=== PATIENT | male | born 1945 | race American Indian/Alaskan Native ===

== ENCOUNTER 2017-03-01 12:07 | Emergency (ER) | payer MEDICARE ==
[2017-03-01 13:30] LABS: Anion Gap 23 mmol/L; BUN/Creatinine Ratio 18.46; Basophils % (Auto) 1.3 % (0.0-1.8); Blood Urea Nitrogen 24 mg/dL (9-20); Calcium 9.8 mg/dL (8.4-10.2); Carbon Dioxide 20 mmol/L (22-30); Chloride 105.6 mmol/L (98-107); Glucose 84 mg/dL (75-100); Hemoglobin 13.3 gm/dl (11.8-15.2); Mean Corpuscular HGB Conc 33 % (32-34); Mean Corpuscular Hemoglobin 28 pg (28-32); Mean Corpuscular Volume 85 fl (84-94); Platelet Count 138 K/mm3 (140-440); Potassium 4.3 mmol/L (3.6-5.0); Red Blood Count 4.73 M/mm3 (3.65-5.03); Red Cell Distribution Width 14.7 % (13.2-15.2); Sodium 144 mmol/L (137-145); White Blood Count 4.3 K/mm3 (4.5-11.0)
[2017-03-01] MEDS ORDERED: GLUCAGEN IV ONE (18:10)
[2017-03-01] MEDS ORDERED: ZOFRAN IV ONE (18:23)
--- NOTE | 2017-03-01 18:33 | Emergency Department Report ---
ED General Adult HPI - General Chief complaint: Medical Clearance Stated complaint: UNABLE TO SWOLLOW/ Time Seen by Provider: 03/01/17 17:21 Source: patient Mode of arrival: Ambulatory Limitations: No Limitations - History of Present Illness Initial comments: 8-year-old male with past medical history BPH, hypertension his presenting to the ED complaining of difficulty in swallowing. Onset of symptoms started 1 day prior to ED arrival. Patient states inciting factor was that he had just taken his seizure medication and shortly after that he felt that everything he swallowed was stuck in his throat. Patient states since then he's not been able to tolerate liquids states he drinks liquids and then within 3 minutes it comes back up as emesis. Patient denies: hematemesis, chest pain, headache, fevers chills, diarrhea, abdominal pain. Patient states he has had similar complaints in the past however they've always resolved on their own within the hour. His symptoms have never lasted this long -: Gradual, days(s) (1) Radiation: non-radiation Severity scale (0 -10): 0 Consistency: intermittent Improves with: none Worsens with: none Associated Symptoms: loss of appetite, nausea/vomiting. denies: confusion, chest pain, cough, diaphoresis, headaches, malaise, rash, shortness of breath, syncope, weakness - Related Data Home Medications Medication Instructions Recorded Confirmed Last Taken Keppra TAB 1,500 mg PO BID 05/12/15 05/12/15 05/12/15 Previous Rx's Medication Instructions Recorded Last Taken Type Pantoprazole [Protonix] 40 mg PO QDAY #30 tablet 03/01/17 Unknown Rx Allergies Allergy/AdvReac Type Severity Reaction Status Date / Time No Known Allergies Allergy Verified 05/12/15 19:23 ED Review of Systems ROS: Stated complaint: UNABLE TO SWOLLOW/ Other details as noted in HPI Constitutional: denies: chills, fever Eyes: denies: eye pain, eye discharge, vision change ENT: denies: ear pain, throat pain Respiratory: denies: cough, shortness of breath, wheezing Cardiovascular: denies: chest pain, palpitations Endocrine: no symptoms reported Gastrointestinal: nausea, vomiting. denies: abdominal pain, diarrhea, constipation, hematemesis, melena, hematochezia Genitourinary: denies: urgency, dysuria Musculoskeletal: denies: back pain, joint swelling, arthralgia Skin: denies: rash, lesions Neurological: denies: headache, weakness, paresthesias Psychiatric: denies: anxiety, depression Hematological/Lymphatic: denies: easy bleeding, easy bruising ED Past Medical Hx - Past Medical History Previous Medical History?: Yes Hx Hypertension: Yes Hx Seizures: Yes - Surgical History Past Surgical History?: Yes Additional Surgical History: Cataract 08/2014 kristina eyes. right shoulder surgery - Social History Smoking Status: Never Smoker Substance Use Type: None - Medications Home Medications: Home Medications Medication Instructions Recorded Confirmed Last Taken Type Keppra TAB 1,500 mg PO BID 05/12/15 05/12/15 05/12/15 History Pantoprazole [Protonix] 40 mg PO QDAY #30 tablet 03/01/17 Unknown Rx ED Physical Exam - General Limitations: No Limitations General appearance: alert, in no apparent distress - Head Head exam: Present: atraumatic, normocephalic - Eye Eye exam: Present: normal appearance - ENT ENT exam: Present: mucous membranes moist - Neck Neck exam: Present: normal inspection - Respiratory Respiratory exam: Present: normal lung sounds bilaterally. Absent: respiratory distress - Cardiovascular Cardiovascular Exam: Present: regular rate, normal rhythm. Absent: systolic murmur, diastolic murmur, rubs, gallop - GI/Abdominal GI/Abdominal exam: Present: soft, normal bowel sounds - Rectal Rectal exam: Present: deferred - Extremities Exam Extremities exam: Present: normal inspection - Back Exam Back exam: Present: normal inspection - Neurological Exam Neurological exam: Present: alert, oriented X3, other (NIHSS: 0). Absent: motor sensory deficit - Psychiatric Psychiatric exam: Present: normal affect, normal mood - Skin Skin exam: Present: warm, dry, intact, normal color. Absent: rash ED Course Vital Signs 03/01/17 03/01/17 03/01/17 12:39 17:15 17:30 Temperature 98.8 F 98.6 F Pulse Rate 85 84 Respiratory 16 18 16 Rate Blood Pressure 155/77 Blood Pressure 150/74 [Left] O2 Sat by Pulse 99 98 100 Oximetry 03/01/17 03/01/17 19:42 21:27 Temperature 98.9 F Pulse Rate 91 H 91 H Respiratory 14 18 Rate Blood Pressure Blood Pressure 149/75 131/86 [Left] O2 Sat by Pulse 99 99 Oximetry - Reevaluation(s) Reevaluation #1: 03/01/17 18:26 Patient states he is able to tolerate his own saliva. Reevaluation #2: 03/01/17 20:08 pt states he tolerated po liquid in ED, he is requesting to dc home 03/01/17 20:08 ED Medical Decision Making - Lab Data Result diagrams: 03/01/17 12:55 03/01/17 12:55 - EKG Data EKG shows normal: sinus rhythm (86), axis (normal), intervals (440), QRS complexes (84) Rate: normal - EKG Data When compared to previous EKG there are: previous EKG unavailable Interpretation: normal EKG - Medical Decision Making 71 yo male with PMHX of BPH presenting to ED with resolved difficulty in swallowing, 1) dysphagia possibly secondary to retained pill in esophagus, I have low suspicion for CVA as his NIHSS:0 and symptoms started shortly after taking a medication. After glucagon given in the ED, the patient was well-appearing, tolerating by mouth liquids and solids, and no respiratory distress, The patient agrees he is stable to discharge home and follow up with GI for EGD. Patient verbalized understanding of return precautions. - Differential Diagnosis ACS, esophageal diverticulum, esophageal perforation, gastritits, GERD Critical care attestation.: If time is entered above; I have spent that time in minutes in the direct care of this critically ill patient, excluding procedure time. ED Disposition Clinical Impression: Esophagitis, Odynophagia Disposition: DC-01 TO HOME OR SELFCARE Is pt being admited?: No Does the pt Need Aspirin: No Condition: Stable Instructions: Foreign Body Ingestion (ED) Prescriptions: Pantoprazole [Protonix] 40 mg PO QDAY #30 tablet Referrals: JAMAL EARL MD [Primary Care Provider] - 2-3 Days GERSON LI MD [Staff Physician] - 2-3 Days Forms: Work/School Release Form(ED)
[2017-03-01 21:28] VITALS: BP 131/86
--- NOTE | 2017-03-02 08:23 | XRay Report ---
CHEST 2 VIEWS INDICATION: Difficulty swallowing. COMPARISON: 07/08/2011 FINDINGS: PA and lateral chest radiographs demonstrate normal cardiomediastinal silhouette. Mild biapical/upper lobe scarring/pleural thickening. Slight aortic knob calcifications. No pleural effusions or CHF. Demineralized bones with mild bony degenerative changes/mild scoliosis. CONCLUSION: No significant acute chest process or interval change, as described. Thank you for the opportunity to participate in this patient's care.
== END 2017-03-01 21:27 | disposition home or self-care (01) ==
LOC: ED 12:07
DX: K20.9 Esophagitis, unspecified (principal); R13.10 Dysphagia, unspecified; I10 Essential (primary) hypertension
CPT/HCPCS: 36415; 71020; 80048; 85025; 93005; 93010; 96374; 96375; 99284; J1610; J2405

== ENCOUNTER 2017-12-31 18:04 | Emergency (ER) | payer MEDICARE ==
[2017-12-31] MEDS ORDERED: KEPPRA 1,000 MG/NS 0.75% 100ML 1,000 MG/100 ML BAG IV ONE (18:26)
--- NOTE | 2017-12-31 18:47 | Emergency Department Report ---
HPI - General Time Seen by Provider: 12/31/17 18:22 - HPI HPI: Room 21 The patient is a 72-year-old male presenting with a chief complaint of altered mental status. Patient was brought in by EMS. EMS reports the patient's heard the patient fall and when she went into the room the patient was unresponsive. EMS was called and transported the patient to the ED. EMS states the patient does have a history of seizures with his last seizure occurring approximately 5 years ago. The patient opens his eyes and moans at times and sometimes raises his head off the bed but he does not speak Location: Mental state Duration: Just prior to arrival Quality: Altered Severity: Moderate Modifying factors: [see above] Context: [see above] Mode of transportation: [not driving] ED Past Medical Hx - Past Medical History Hx Hypertension: Yes Hx Seizures: Yes - Surgical History Additional Surgical History: Cataract 08/2014 kristina eyes. right shoulder surgery - Family History Family history: no significant - Social History Smoking Status: Unknown if ever smoked Substance Use Type: None - Medications Home Medications: Home Medications Medication Instructions Recorded Confirmed Last Taken Type Keppra TAB 1,500 mg PO BID 05/12/15 05/12/15 05/12/15 History Pantoprazole [Protonix] 40 mg PO QDAY #30 tablet 03/01/17 Unknown Rx ED Review of Systems ROS: Stated complaint: SEIZURE Other details as noted in HPI Comment: Unobtainable due to pts medical conditions Physical Exam - Physical Exam Physical Exam: GENERAL: The patient is well-developed well-nourished male lying on stretcher occasionally moaning and raising head off the stretcher but not speaking. [] HEENT: Normocephalic. Atraumatic. NECK: Supple. Trachea midline CHEST/LUNGS: Clear to auscultation. There is no respiratory distress noted. HEART/CARDIOVASCULAR: Regular. There is tachycardia. There is no gallop rub or murmur. ABDOMEN: Abdomen is soft, nontender. Patient has normal bowel sounds. There is no abdominal distention. SKIN: There is no rash. There is no edema. There is no diaphoresis. NEURO: The patient is conscious but does not respond to questions. Patient moans and occasionally races head off the stretcher but no other purposeful movements noticed MUSCULOSKELETAL: There is no evidence of acute injury. ED Course - Reevaluation(s) Reevaluation #1: 12/31/17 20:19 Patient awake and alert at this time without complaints. Patient's family is at bedside and is able to provide further history. The states she heard the patient make her grown (something he does prior to having seizures) and then she heard him fall. She went upstairs to check on him and he was not convulsing at the time. EMS was called and she went to unlock the door for them when she returns to the patient he was having a generalized tonic-clonic seizure. Patient is currently asymptomatic Neurological: Cranial nerves II through XII grossly intact, no drift. Patient a and O 3 ED Medical Decision Making - Lab Data Result diagrams: 12/31/17 18:58 12/31/17 18:58 Laboratory Tests 12/31/17 12/31/17 12/31/17 18:58 18:58 18:58 WBC 11.4 H RBC 4.44 Hgb 12.6 Hct 37.9 MCV 85 MCH 28 MCHC 33 RDW 14.3 Plt Count 170 Lymph % (Auto) 6.7 L Graham % (Auto) 6.5 Eos % (Auto) 0.8 Baso % (Auto) 0.3 Lymph # 0.8 L Graham # 0.7 Eos # 0.1 Baso # 0.0 Seg Neutrophils % 85.7 H Seg Neutrophils # 9.8 H PT 13.0 INR 0.94 APTT 25.7 Sodium 137 Potassium 3.7 Chloride 99.5 Carbon Dioxide 15 L Anion Gap 26 BUN 22 H Creatinine 1.2 Estimated GFR > 60 BUN/Creatinine Ratio 18 Glucose 108 H Calcium 10.1 Magnesium 2.40 H Total Bilirubin 0.30 AST 21 ALT 14 Alkaline Phosphatase 112 Ammonia Total Creatine Kinase 136 CK-MB (CK-2) 1.7 CK-MB (CK-2) Rel Index 1.2 Troponin T < 0.010 Total Protein 7.6 Albumin 3.9 Albumin/Globulin Ratio 1.1 TSH Free T4 Plasma/Serum Alcohol 12/31/17 12/31/17 12/31/17 18:58 18:58 18:58 WBC RBC Hgb Hct MCV MCH MCHC RDW Plt Count Lymph % (Auto) Graham % (Auto) Eos % (Auto) Baso % (Auto) Lymph # Graham # Eos # Baso # Seg Neutrophils % Seg Neutrophils # PT INR APTT Sodium Potassium Chloride Carbon Dioxide Anion Gap BUN Creatinine Estimated GFR BUN/Creatinine Ratio Glucose Calcium Magnesium Total Bilirubin AST ALT Alkaline Phosphatase Ammonia 30.0 Total Creatine Kinase CK-MB (CK-2) CK-MB (CK-2) Rel Index Troponin T Total Protein Albumin Albumin/Globulin Ratio TSH 6.290 H Free T4 1.11 Plasma/Serum Alcohol < 0.01 - EKG Data -: EKG Interpreted by Oh EKG shows normal: sinus rhythm Rate: tachycardia (101 bpm) - EKG Data When compared to previous EKG there are: previous EKG unavailable Interpretation: other (no ischemic changes seen) - Radiology Data Radiology results: report reviewed (CT head), image reviewed (CT head) CT head (read by radiologist)-No focal or acute intracranial abnormalities are identified. - Differential Diagnosis postictal state, ICH, metabolic abnormality Critical care attestation.: If time is entered above; I have spent that time in minutes in the direct care of this critically ill patient, excluding procedure time. ED Disposition Clinical Impression: Seizure Disposition: DC-01 TO HOME OR SELFCARE Is pt being admited?: No Does the pt Need Aspirin: No Condition: Stable Instructions: Epilepsy (ED) Additional Instructions: Return to the emergency department immediately should you develop worsening symptoms, fever, inability to tolerate food or liquid or any other concerns. Referrals: your, neurologist [Other] - [facility] Time of Disposition: 20:22
--- NOTE | 2017-12-31 19:10 | Cat Scan Report ---
FINAL REPORT PROCEDURE: CT HEAD/BRAIN WO CON TECHNIQUE: Computerized tomography of the head was performed without contrast material. HISTORY: altered mental status COMPARISON: No prior studies are available for comparison. FINDINGS: Brain: Brain density appears normal. No evidence of intracranial hemorrhage. No parenchymal hemorrhage, mass lesions or mass effect are seen. No abnormal extraxial fluid collects or masses are seen. Small nonspecific calcifications visualized in the basal ganglia which are otherwise unremarkable. Ventricles: Ventricles are normal size and are midline. Bone Windows: No evidence of skull fracture. Paranasal sinuses: There is patchy mucosal disease in a few of the ethmoid air cells on the right. Visualized portions of the paranasal sinuses otherwise are clear. Mastoid air cells: Clear IMPRESSION: No acute or focal intracranial abnormalities are identified. Mild paranasal sinus disease as described.
[2017-12-31 19:19] LABS: Basophils % (Auto) 0.3 % (0.0-1.8); Eosinophils # (Auto) 0.1 K/mm3 (0.0-0.4); Eosinophils % (Auto) 0.8 % (0.0-4.3); Hematocrit 37.9 % (35.5-45.6); Hemoglobin 12.6 gm/dl (11.8-15.2); Lymphocytes # (Auto) 0.8 K/mm3 (1.2-5.4); Lymphocytes % (Auto) 6.7 % (13.4-35.0); Mean Corpuscular HGB Conc 33 % (32-34); Mean Corpuscular Hemoglobin 28 pg (28-32); Mean Corpuscular Volume 85 fl (84-94); Monocytes # (Auto) 0.7 K/mm3 (0.0-0.8); Monocytes % (Auto) 6.5 % (0.0-7.3); Platelet Count 170 K/mm3 (140-440); Red Blood Count 4.44 M/mm3 (3.65-5.03); Red Cell Distribution Width 14.3 % (13.2-15.2)
[2017-12-31 19:30] LABS: INR 0.94 (0.87-1.13)
[2017-12-31 19:31] LABS: Partial Thromboplastin Time 25.7 Sec. (24.2-36.6)
[2017-12-31 19:37] LABS: Creatine Kinase MB 1.7 ng/mL (0.0-4.0)
[2017-12-31 19:38] LABS: Alanine Aminotransferase 14 units/L (7-56); Albumin 3.9 g/dL (3.9-5); BUN/Creatinine Ratio 18; Blood Urea Nitrogen 22 mg/dL (9-20); Calcium 10.1 mg/dL (8.4-10.2); Hemolysis Index 13
[2017-12-31 20:07] LABS: Free T4 (Free Thyroxine) 1.11 ng/dL (0.76-1.46)
[2017-12-31 20:57] VITALS: BP 143/81
== END 2017-12-31 20:58 | disposition home or self-care (01) ==
LOC: ED 18:04
DX: R56.9 Unspecified convulsions (principal); I10 Essential (primary) hypertension
CPT/HCPCS: 36415; 70450; 80053; 82140; 82550; 82553; 83735; 84439; 84443; 84484; 85025; 85610; 85730; 93005; 93010; 96374; 99284; G0480; J1953; 80320

== ENCOUNTER 2019-07-07 11:31 | Inpatient (IN) | payer MEDICARE ==
[2019-07-07] MEDS ORDERED: ADENOSINE 6 MG/2 ML INJ ONE (11:52)
[2019-07-07] MEDS ORDERED: ADENOSINE 6 MG/2 ML INJ IV ONE ×2 (12:00→12:05)
[2019-07-07 12:46] LABS: Basophils % (Auto) 0.7 % (0.0-1.8); Eosinophils % (Auto) 0.6 % (0.0-4.3); Hematocrit 35.9 % (35.5-45.6); Lymphocytes # (Auto) 0.8 K/mm3 (1.2-5.4); Lymphocytes % (Auto) 20.1 % (13.4-35.0); Mean Corpuscular HGB Conc 34 % (32-34); Mean Corpuscular Volume 86 fl (84-94); Monocytes # (Auto) 0.4 K/mm3 (0.0-0.8); Monocytes % (Auto) 9.6 % (0.0-7.3); Platelet Count 133 K/mm3 (140-440); Red Cell Distribution Width 13.7 % (13.2-15.2)
--- NOTE | 2019-07-07 12:56 | Emergency Department Report ---
HPI - General Chief Complaint: Chest Pain Time Seen by Provider: 07/07/19 11:44 - HPI HPI: 74-year-old -Citizen Of [place] male presents to the emergency department, sent in by Dr. Merida of [facility], secondary to some tachycardia and abnormal EKG showing junctional tachycardia with retrograde conduction. The patient is on theophylline secondary to a history of asthma. He also has a history of hyperlipidemia and hypertension. He's been having some palpitations since last , about 5 days ago. He denies any chest pain or resting shortness of breath but the palpitations worsen with any exertion and he says it feels like he has a fast heart rate. The patient went to follow-up with his house officer today, Dr. Gaston, and was found to have a heart rate of about 130 bpm. He was then sent over to the pcat instructor who then sent him to the emergency department. Cardiology called and gave a heads up and requested the patient receive adenosine to try and convert him back to a normal sinus rhythm. ED Past Medical Hx - Past Medical History Hx Hypertension: Yes Hx Seizures: Yes - Surgical History Additional Surgical History: Cataract 08/2014 kristina eyes. right shoulder surgery - Social History Smoking Status: Never Smoker Substance Use Type: None - Medications Home Medications: Home Medications Medication Instructions Recorded Confirmed Last Taken Type Keppra TAB 750 mg PO BID 05/12/15 07/07/19 05/12/15 History Pantoprazole [Protonix] 40 mg PO QDAY #30 tablet 03/01/17 Unknown Rx Amlodipine Besylate [Norvasc] 5 mg PO 07/07/19 Unknown History Doxazosin Mesylate [Cardura Xl] 4 mg PO BID 07/07/19 07/07/19 Unknown History Ketorolac Tromethamin 0.4%(Nf) 07/07/19 Unknown History [Acular Ls 0.4% Ophth Gina] Lisinopril [Zestril TAB] 40 mg PO QDAY 07/07/19 07/07/19 Unknown History Metoprolol Succinate [Toprol Xl] 25 mg PO QDAY 07/07/19 07/07/19 Unknown History Theophylline Anhydrous 300 mg PO QDAY 07/07/19 07/07/19 Unknown History [Theophylline] ED Review of Systems ROS: Stated complaint: DOC ORDERED Other details as noted in HPI Comment: All other systems reviewed and negative Constitutional: denies: chills, fever Respiratory: SOB with exertion. denies: cough, SOB at rest Cardiovascular: palpitations. denies: chest pain Gastrointestinal: denies: abdominal pain, vomiting Genitourinary: denies: dysuria, discharge Musculoskeletal: denies: back pain, arthralgia Skin: denies: rash, lesions Neurological: denies: headache, weakness Physical Exam - Physical Exam Vital Signs: Vital Signs 07/07/19 07/07/19 07/07/19 11:40 11:45 12:00 Temperature 98.5 F Pulse Rate 109 H 122 H Respiratory 16 15 16 Rate Blood Pressure 120/80 Blood Pressure 135/84 [Left] O2 Sat by Pulse 100 100 Oximetry 07/07/19 07/07/19 12:05 12:12 Temperature Pulse Rate 126 H 107 H Respiratory 16 16 Rate Blood Pressure Blood Pressure 139/75 115/74 [Left] O2 Sat by Pulse 98 98 Oximetry Physical Exam: GENERAL: The patient is well-developed well-nourished. HENT: Normocephalic. Atraumatic. Patient has moist mucous membranes. EYES: Extraocular motions are intact. NECK: Supple. Trachea is midline. CHEST/LUNGS: Clear to auscultation. There is no respiratory distress noted. HEART/CARDIOVASCULAR: Regular. There is mild tachycardia. There is no murmur. ABDOMEN: Abdomen is soft, nontender. Patient has normal bowel sounds. There is no abdominal distention. SKIN: Skin is warm and dry. NEURO: The patient is awake, alert, and oriented. The patient is cooperative. The patient has no focal neurologic deficits. Normal speech. MUSCULOSKELETAL: There is no tenderness or deformity. There is no limitation range of motion. There is no evidence of acute injury. ED Course Vital Signs 07/07/19 07/07/19 07/07/19 11:40 11:45 12:00 Temperature 98.5 F Pulse Rate 109 H 122 H Respiratory 16 15 16 Rate Blood Pressure 120/80 Blood Pressure 135/84 [Left] O2 Sat by Pulse 100 100 Oximetry 07/07/19 07/07/19 12:05 12:12 Temperature Pulse Rate 126 H 107 H Respiratory 16 16 Rate Blood Pressure Blood Pressure 139/75 115/74 [Left] O2 Sat by Pulse 98 98 Oximetry - Consultations Consultation #1: Patient was seen in the emergency department by Dr. Bassett of [facility]. He agrees that the patient appears to still be in junctional t achycardia that may be related to his theophylline use and the patient should be admitted to the hospitalist service. 07/07/19 14:43 ED Medical Decision Making - Lab Data Result diagrams: 07/07/19 12:08 07/07/19 12:08 - EKG Data -: EKG Interpreted by Me EKG shows normal: axis, intervals, QRS complexes, ST-T waves Rate: tachycardia (106 bpm) - EKG Data When compared to previous EKG there are: no significant change (no significant change from the EKG sent in with the patient) Interpretation: other (junctional tachycardia at [address] elevation OK) - Radiology Data Radiology results: image reviewed interpreted by me: Chest x-ray does not show any acute process. There are no pleural effusions, obvious pneumonia and there is no pneumothorax. - Medical Decision Making This patient was sent in by his pcat instructor for medical cardioversion from a junctional tachycardia with some retrograde conduction that is thought to be secondary to his theophylline use. The patient remained injection tachycardia upon arrival. He was given 6 mg, then 12 mg, of adenosine without cardioversion into sinus rhythm. Patient's labs have been mostly unremarkable. Chest x-ray does not show any acute process. Patient was placed on a Cardizem drip, per car diology recommendation, but it has currently been held secondary to some underlying hypotension. The patient will be admitted to the hospital for further evaluation and treatment and was accepted for admission by the hospitalist, Dr. Sands. - Differential Diagnosis dysrhythmia, electrolyte abnormalities, OK Critical Care Time: Yes Critical care time in (mins) excluding proc time.: 31 Critical care attestation.: If time is entered above; I have spent that time in minutes in the direct care of this critically ill patient, excluding procedure time. Critical care time was spent on this patient and doing his initial evaluation, multiple re- evaluations, ordering and interpretation of labs and imaging, administration of the adenosine for chemical cardioversion, multiple discussions with cardiology. Critical Care Time: 31 minutes ED Disposition Clinical Impression: Palpitations, Junctional tachycardia, Dysrhythmia Disposition: OP ADMIT IP TO THIS HOSP Is pt being admited?: Yes Condition: Fair Time of Disposition: 14:46
[2019-07-07] MEDS ORDERED: dilTIAZem/D5W 100 MG/100 ML BAG IV SCH (13:00)
[2019-07-07 13:10] LABS: BUN/Creatinine Ratio 12; Blood Urea Nitrogen 18 mg/dL (9-20); Calcium 9.6 mg/dL (8.4-10.2); Hemolysis Index 6
--- NOTE | 2019-07-07 13:30 | XRay Report ---
CHEST 1 VIEW 07/07/2019 1:11 PM INDICATION / CLINICAL INFORMATION: Palpitations. COMPARISON: 2 views of the chest from 03/01/2017. FINDINGS: SUPPORT DEVICES: None. HEART / MEDIASTINUM: The heart is normal in size with similar mild aortic atherosclerosis. LUNGS / PLEURA: Chronic appearing parenchymal changes are noted with biapical scarring. No acute pulm onary abnormality, significant pleural effusion or pneumothorax is seen. ADDITIONAL FINDINGS: No significant additional findings. IMPRESSION: No acute abnormality of the chest. Signer Name: Jhon Tyler MD Signed: 07/07/2019 1:26 PM Workstation Name: [id number]
[2019-07-07] MEDS ORDERED: SODIUM CHLORIDE 0.9% 1000 ML 1,000 ML ONE (14:02)
[2019-07-07] MEDS ORDERED: SODIUM CHLORIDE 0.9% 1000 ML 1,000 ML IV ONE (14:04)
--- NOTE | 2019-07-07 14:06 | History and Physical Report ---
History of Present Illness Chief complaint: My heart is beating out of my chest History of present illness: 74 YO Male with HTN, HLD, Asthma, Seizure Disorder presents to ED for evaluation. Pt states that he has experienced intermittent episodes of "feeling like my heart is pounding inside my chest" over the past 5 days with worsening symptoms over the past 2 days. Pt acknowledges dypsnea with exertion, shortness of breath, and decreased exercise tolerance. Pt seen and evaluated by his covered button maker and was instructed to seek further care. Pt transported to [facility] via private vehicle. Pt seen and evaluated in ED and found to have cardiac arrhythmia suspected secondary to Theophylline toxicity. Pt treated with shana nosine and placed on a cardizem drip. Pt admitted to ICU and placed on continuous telemetry monitoring. Cardiology team consulted. Pt denies fever, chills, CP, NVD, Trauma, BRBPR, Productive Cough, Skin Rash, Seizure, recent ill contacts. Advanced care planning conducted in ED. Past History Past Medical History: other Past Surgical History: cataract removal, Other (Right shoulder) Social history: , lives with family Family history: hypertension Medications and Allergies Allergies Allergy/AdvReac Type Severity Reaction Status Date / Time No Known Allergies Allergy Verified 05/12/15 19:23 Home Medications Medication Instructions Recorded Confirmed Last Taken Type Keppra TAB 750 mg PO BID 05/12/15 07/07/19 05/12/15 History Pantoprazole [Protonix] 40 mg PO QDAY #30 tablet 03/01/17 Unknown Rx Amlodipine Besylate [Norvasc] 5 mg PO 07/07/19 Unknown History Doxazosin Mesylate [Cardura Xl] 4 mg PO BID 07/07/19 07/07/19 Unknown History Ketorolac Tromethamin 0.4%(Nf) 07/07/19 Unknown History [Acular Ls 0.4% Ophth Gina] Lisinopril [Zestril TAB] 40 mg PO QDAY 07/07/19 07/07/19 Unknown History Metoprolol Succinate [Toprol Xl] 25 mg PO QDAY 07/07/19 07/07/19 Unknown History Theophylline Anhydrous 300 mg PO QDAY 07/07/19 07/07/19 Unknown History [Theophylline] Active Meds: Active Medications Diltiazem HCl (Cardizem/D5w 100mg/100ml) 100 mg in 100 mls @ 5 mls/hr IV TITR JULES; Protocol Review of Systems Constitutional: no weight loss, no weight gain, no fever, no chills Ears, nose, mouth and throat: no ear pain, no ear discharge, no tinnitis, no decreased hearing, no nasal congestion, no nasal discharge Cardiovascular: palpitations, no chest pain, no orthopnea, no edema, no syncope Respiratory: no cough, no cough with sputum, no excessive sputum, no shortness of breath Gastrointestinal: no nausea, no vomiting, no diarrhea, no constipation, no change in bowel habits Genitourinary Male: no hematuria, no flank pain, no discharge, no urinary frequency, no urinary hesitancy Rectal: no pain, no incontinence, no bleeding Musculoskeletal: no neck stiffness, no neck pain, no shooting arm pain, no arm numbness/tingling, no low back pain Integumentary: no rash, no pruritis, no redness, no sores, no wounds Neurological: no head injury, no transient paralysis, no paralysis, no weakness, no parathesias, no numbness Psychiatric: no anxiety, no memory loss, no sleep disturbances, no insomnia, no change in appetite, no suicidal ideation Endocrine: no cold intolerance, no heat intolerance, no polyphagia, no polyuria, no nocturia Hematologic/Lymphatic: no easy bruising, no easy bleeding, no lymphadenopathy, no lymphedema Allergic/Immunologic: no urticaria, no persistent infections, no anaphylaxis, no angioedema Exam - Constitutional Vitals: Temp Pulse Resp BP Pulse Ox 98.5 F 109 H 16 103/72 100 07/07/19 11:45 07/07/19 14:00 07/07/19 14:00 07/07/19 14:00 07/07/19 14:00 General appearance: Present: mild distress - EENT Eyes: Present: PERRL ENT: hearing intact, clear oral mucosa - Neck Neck: Present: supple, normal ROM - Respiratory Respiratory effort: normal Respiratory: bilateral: CTA - Cardiovascular Rhythm: irregularly irregular Heart Sounds: Present: S1 & S2. Absent: rub, click - Extremities Extremities: pulses symmetrical, No edema Peripheral Pulses: within normal limits - Abdominal General gastrointestinal: Present: soft, non-tender, non-distended, normal bowel sounds Male genitourinary: Present: normal - Integumentary Integumentary: Present: clear, warm, dry - Psychiatric Psychiatric: appropriate mood/affect, intact judgment & insight - Neurologic Neurologic: CNII-XII intact, moves all extremities Results - Labs CBC & Chem 7: 07/07/19 12:08 07/07/19 12:08 Labs: Abnormal lab results 07/07/19 07/07/19 Range/Units 12:08 12:08 WBC 3.9 L (4.5-11.0) K/mm3 Plt Count 133 L (140-440) K/mm3 [place] % (Auto) 9.6 H (0.0-7.3) % Lymph # 0.8 L (1.2-5.4) K/mm3 Carbon Dioxide 20 L (22-30) mmol/L Glucose 107 H (75-100) mg/dL Assessment and Plan - Patient Problems (1) Theophylline toxicity Current Visit: Yes Status: Suspected Plan to address problem: Theophylline level, hold theophylline for now, supportive care. The high probability of a clinically significant, sudden or life threatening deterioration of the [cardiac, renal] system(s) required my full and direct attention, intervention and personal management. The aggregate critical care time was [65] minutes. This time is in addition to time spent performing reported procedures but includes the following: [x] Data Review and interpretation [x] Patient assessment and monitoring of vital signs [x] Documentation [x] Medication orders and management (2) Junctional tachycardia Current Visit: Yes Status: Acute Plan to address problem: Supportive care. Cardiology consulted, IV cardizem, supportive care. (3) HTN (hypertension) Current Visit: Yes Status: Chronic Qualifiers: Hypertension type: essential hypertension Qualified Code(s): I10 - Essential (primary) hypertension Plan to address problem: Monitor BP q shift, (4) Advance care planning Current Visit: Yes Status: Acute Plan to address problem: +30min, Pt is full code, Pt and acknowledge understanding care plan. (5) DVT prophylaxis Current Visit: Yes Status: Acute Plan to address problem: SCD to BLE while in bed, PT ambulatory
--- NOTE | 2019-07-07 14:49 | Consultation ---
History of Present Illness Consult date: 07/07/19 Requesting physician: BENJAMÍN HERRING Consult reason: known to you, tachycardia History of present illness: The pt is a 74-year-old male with a past medical history of HTN, HLP, CKD, asthma, on theophylline. He is followed in our office by Dr. Merida. He was seen in our office earlier today with c/o intermittent palpitations for the past 5 days. He was seen by nephrology, Dr. Aguero, and sent to our office for heart rate in the 130s. EKG in office showed atrial tachycardia 115 with possible retrograde conduction. In view of his asthma being on theophylline he was sent to ED for further eval/management. Following arrival to ED, EKG showed junctional tachycardia with retrograde conduction. He was given 6 mg, then 12 mg, of adenosine without cardioversion into sinus rhythm. He remains in junctional tachycardia with HR 110s. He denies any chest pain, SOB, n/v, diaphoresis, dizziness or syncope. Echo done 08/2018 showed EF 50-55%, asymmetric LVH, grade 2 diastolic dysfunction, mild MR and TR. Exercise MPI stress test done 08/2018 was clinically negative with no chest pain, normal EF 67%, mild inferior abnormalities of questionable significance, treadmill test abnormal with inferolateral ST-T changes. Thought to be probably false positive as perfusion images looked good per Dr. Nieves. Past History Past Medical History: sarcoidosis (per HPI), other Medications and Allergies Allergies Allergy/AdvReac Type Severity Reaction Status Date / Time No Known Allergies Allergy Verified 05/12/15 19:23 Home Medications Medication Instructions Recorded Confirmed Last Taken Type Keppra TAB 750 mg PO BID 05/12/15 07/07/19 05/12/15 History Pantoprazole [Protonix] 40 mg PO QDAY #30 tablet 03/01/17 Unknown Rx Amlodipine Besylate [Norvasc] 5 mg PO 07/07/19 Unknown History Doxazosin Mesylate [Cardura Xl] 4 mg PO BID 07/07/19 07/07/19 Unknown History Ketorolac Tromethamin 0.4%(Nf) 07/07/19 Unknown History [Acular Ls 0.4% Ophth Gina] Lisinopril [Zestril TAB] 40 mg PO QDAY 07/07/19 07/07/19 Unknown History Metoprolol Succinate [Toprol Xl] 25 mg PO QDAY 07/07/19 07/07/19 Unknown History Theophylline Anhydrous 300 mg PO QDAY 07/07/19 07/07/19 Unknown History [Theophylline] Active Meds: Active Medications Doxazosin Mesylate (Cardura) 4 mg PO BID [facility] Diltiazem HCl (Cardizem/D5w 100mg/100ml) 100 mg in 100 mls @ 5 mls/hr IV TITR JULES; Protocol Levetiracetam (Keppra) 750 mg PO BID JULES Pantoprazole Sodium (Protonix) 40 mg PO QDAY JULES Sodium Chloride (Sodium Chloride Flush Syringe 10 Ml) 10 ml IV BID JULES Sodium Chloride (Sodium Chloride Flush Syringe 10 Ml) 10 ml IV PRN PRN PRN Reason: LINE FLUSH Review of Systems Constitutional: no weight loss, no weight gain, no fever, no chills, no sweats Ears, nose, mouth and throat: no ear pain, no nose pain, no sinus pressure, no sinus pain Cardiovascular: palpitations, no chest pain, no orthopnea, no edema, no syncope, no lightheadedness, no shortness of breath, no dyspnea on exertion, no high blood pressure, no leg edema, no decreased exercise tolerance Respiratory: no cough, no shortness of breath, no dyspnea on exertion, no congestion, no wheezing, no pain on inspiration Gastrointestinal: no abdominal pain, no nausea, no vomiting, no diarrhea, no constipation, no change in bowel habits Genitourinary Male: no dysuria, no hematuria, no flank pain, no discharge, no urinary frequency, no urinary hesitancy Musculoskeletal: no neck stiffness, no neck pain, no shooting arm pain, no arm numbness/tingling, no low back pain, no shooting leg pain Integumentary: no rash, no pruritis, no redness, no sores, no wounds Neurological: no head injury, no paralysis, no weakness, no parathesias, no numbness, no tingling, no seizures, no syncope Psychiatric: no anxiety Endocrine: no cold intolerance, no heat intolerance Hematologic/Lymphatic: no easy bruising, no easy bleeding Allergic/Immunologic: no urticaria, no wheezing Physical Examination Vital Signs Resp 16 07/07/19 11:40 General appearance: no acute distress HEENT: Positive: PERRL, Normocephaly, Mucus Membranes Moist Neck: Positive: neck supple, trachea midline Cardiac: Positive: Regular Rhythm, S1/S2 Lungs: Positive: Decreased Breath Sounds Neuro: Positive: Grossly Intact Abdomen: Negative: Tender Skin: Negative: Rash Musculoskeletal: No Pain Extremities: Absent: edema Results 07/07/19 12:08 07/07/19 12:08 CBC 07/07/19 Range/Units 12:08 WBC 3.9 L (4.5-11.0) K/mm3 RBC 4.20 (3.65-5.03) M/mm3 Hgb 12.0 (11.8-15.2) gm/dl Hct 35.9 (35.5-45.6) % Plt Count 133 L (140-440) K/mm3 Lymph # 0.8 L (1.2-5.4) K/mm3 [place] # 0.4 (0.0-0.8) K/mm3 Eos # 0.0 (0.0-0.4) K/mm3 Baso # 0.0 (0.0-0.1) K/mm3 Comprehensive Metabolic Panel 07/07/19 Range/Units 12:08 Sodium 142 (137-145) mmol/L Potassium 4.8 (3.6-5.0) mmol/L Chloride 105.4 (98-107) mmol/L Carbon Dioxide 20 L (22-30) mmol/L BUN 18 (9-20) mg/dL Creatinine 1.5 (0.8-1.5) mg/dL Glucose 107 H (75-100) mg/dL Calcium 9.6 (8.4-10.2) mg/dL - Imaging and Cardiology Echo: report reviewed (08/2018 showed EF 50-55%, asymmetric LVH, grade 2 diastolic dysfunction, mild MR and TR. ) EKG: report reviewed, image reviewed EKG interpretations - Telemetry EKG Rhythm: Junctional (tachycardia) - EKG Supraventricular dysrhythmia: junctional rhythm (tachycardia) Assessment and Plan Arrhythmia initially suspected to be secondary to Theophylline toxicity, however, theophylline level resulted as 8.9. Recommend continuing to hold Theophylline at this time. Optimize HR - initiate cardizem gtt. F/u echo. Further recs to follow per hospital course. The patient has been seen in conjunction with Dr. Carmelita Bassett who agrees with the assessment and plan of care. - Patient Problems (1) Junctional tachycardia Current Visit: Yes Status: Acute (2) Palpitations Current Visit: Yes Status: Acute (3) HTN (hypertension) Current Visit: Yes Status: Chronic (4) Hyperlipidemia Current Visit: Yes Status: Chronic (5) Asthma Current Visit: Yes Status: Chronic
[2019-07-07] MEDS ORDERED: PANTOPRAZOLE 40 MG TAB PO ONE (15:10)
[2019-07-07] MEDS ORDERED: levETIRAcetam 500 MG TAB PO ONE (15:12)
[2019-07-07] MEDS: DOXAZOSIN 4 MG TAB PO SCH ×2 (15:13→21:03)
[2019-07-07] MEDS: PANTOPRAZOLE 40 MG TAB PO SCH (15:13)
[2019-07-07] MEDS: levETIRAcetam 500 MG TAB PO SCH ×2 (15:13→21:02)
[2019-07-08 05:37] LABS: Basophils % (Auto) 1.2 % (0.0-1.8); Eosinophils # (Auto) 0.1 K/mm3 (0.0-0.4); Eosinophils % (Auto) 3.7 % (0.0-4.3); Hematocrit 34.9 % (35.5-45.6); Hemoglobin 11.7 gm/dl (11.8-15.2); Lymphocytes % (Auto) 25.9 % (13.4-35.0); Mean Corpuscular HGB Conc 34 % (32-34); Mean Corpuscular Volume 85 fl (84-94); Monocytes # (Auto) 0.4 K/mm3 (0.0-0.8); Monocytes % (Auto) 11.5 % (0.0-7.3); Platelet Count 132 K/mm3 (140-440); Red Blood Count 4.12 M/mm3 (3.65-5.03); Red Cell Distribution Width 13.9 % (13.2-15.2)
[2019-07-08 05:51] LABS: Alanine Aminotransferase 8 units/L (7-56); Albumin 3.4 g/dL (3.9-5); BUN/Creatinine Ratio 13; Blood Urea Nitrogen 16 mg/dL (9-20); Calcium 8.7 mg/dL (8.4-10.2); Hemolysis Index 6
[2019-07-08] MEDS: DOXAZOSIN 4 MG TAB PO SCH ×2 (10:00→22:01)
[2019-07-08] MEDS: PANTOPRAZOLE 40 MG TAB PO SCH (10:00)
[2019-07-08] MEDS: levETIRAcetam 500 MG TAB PO SCH ×2 (10:00→22:01)
--- NOTE | 2019-07-08 12:03 | Consultation ---
History of Present Illness - Reason for Consult Consult date: 07/08/19 Tachycardia. - History of Present Illness The pt is a 74-year-old male with a past medical history of HTN, HLP, CKD, asthma, on theophylline. He is followed in our office by Dr. Merida. He was seen in our office earlier today with c/o intermittent palpitations for the past 5 days. He was seen by nephrology, Dr. Aguero, and sent to our office for heart rate in the 130s. EKG in office showed atrial tachycardia 115 with possible retrograde conduction. In view of his asthma being on theophylline he was sent to ED for further eval/management. Following arrival to ED, EKG showed junctional tachycardia with retrograde conduction. He was given 6 mg, then 12 mg, of adenosine without cardioversion into sinus rhythm. He remains in junctional tachycardia with HR 110s. He denies any chest pain, SOB, n/v, diaphoresis, dizziness or syncope. Past History Past Medical History: hypertension, hyperlipidemia, other (asthma and chronic kidney disease) Past Surgical History: cataract removal, Other (Right shoulder) Social history: , lives with family Family history: hypertension Medications and Allergies Allergies Allergy/AdvReac Type Severity Reaction Status Date / Time No Known Allergies Allergy Verified 05/12/15 19:23 Home Medications Medication Instructions Recorded Confirmed Last Taken Type Keppra TAB 750 mg PO BID 05/12/15 07/07/19 05/12/15 History Pantoprazole [Protonix] 40 mg PO QDAY #30 tablet 03/01/17 Unknown Rx Amlodipine Besylate [Norvasc] 5 mg PO 07/07/19 Unknown History Doxazosin Mesylate [Cardura Xl] 4 mg PO BID 07/07/19 07/07/19 Unknown History Ketorolac Tromethamin 0.4%(Nf) 07/07/19 Unknown History [Acular Ls 0.4% Ophth Gina] Lisinopril [Zestril TAB] 40 mg PO QDAY 07/07/19 07/07/19 Unknown History Metoprolol Succinate [Toprol Xl] 25 mg PO QDAY 07/07/19 07/07/19 Unknown History Theophylline Anhydrous 300 mg PO QDAY 07/07/19 07/07/19 Unknown History [Theophylline] Active Meds: Active Medications Doxazosin Mesylate (Cardura) 4 mg PO BID [facility] Last Admin: 07/08/19 10:00 Dose: 4 mg Documented by: Diltiazem HCl (Cardizem/D5w 100mg/100ml) 100 mg in 100 mls @ 5 mls/hr IV TITR [facility]; Protocol Levetiracetam (Keppra) 750 mg PO BID [facility] Last Admin: 07/07/19 21:02 Dose: 750 mg Documented by: Pantoprazole Sodium (Protonix) 40 mg PO QDAY [facility] Last Admin: 07/08/19 10:00 Dose: 40 mg Documented by: Sodium Chloride (Sodium Chloride Flush Syringe 10 Ml) 10 ml IV BID [facility] Last Admin: 07/08/19 10:00 Dose: 10 ml Documented by: Sodium Chloride (Sodium Chloride Flush Syringe 10 Ml) 10 ml IV PRN PRN PRN Reason: LINE FLUSH Review of Systems All systems: negative Exam - Constitutional Vitals: Temp Pulse Resp BP Pulse Ox 98.1 F 101 H 16 120/69 97 07/08/19 08:00 07/08/19 10:00 07/08/19 06:30 07/08/19 10:00 07/08/19 06:30 Results - Labs CBC & Chem 7: 07/08/19 05:11 07/08/19 05:11 Labs: Abnormal lab results 07/07/19 07/07/19 07/07/19 Range/Units 12:08 12:08 13:33 WBC 3.9 L (4.5-11.0) K/mm3 Hgb (11.8-15.2) gm/dl Hct (35.5-45.6) % Plt Count 133 L (140-440) K/mm3 [place] % (Auto) 9.6 H (0.0-7.3) % Lymph # 0.8 L (1.2-5.4) K/mm3 Chloride (98-107) mmol/L Carbon Dioxide 20 L (22-30) mmol/L Glucose 107 H (75-100) mg/dL Albumin (3.9-5) g/dL Theophylline 8.9 L (10.0-20.0) ug/mL 07/08/19 07/08/19 Range/Units 05:11 05:11 WBC 3.7 L (4.5-11.0) K/mm3 Hgb 11.7 L (11.8-15.2) gm/dl Hct 34.9 L (35.5-45.6) % Plt Count 132 L (140-440) K/mm3 [place] % (Auto) 11.5 H (0.0-7.3) % Lymph # 1.0 L (1.2-5.4) K/mm3 Chloride 110.5 H (98-107) mmol/L Carbon Dioxide (22-30) mmol/L Glucose (75-100) mg/dL Albumin 3.4 L (3.9-5) g/dL Theophylline (10.0-20.0) ug/mL - Imaging and Cardiology Chest x-ray: image reviewed (chronic interstitial changes) Assessment and Plan 74 y/o with irregular heart rhythm. 1. Patient follows with Mati. Will review office records to see how long patient has been on Theophylline 2. Levels of Praveen were low. Ok with Holding for now. However must be mindful of acute bronchospasm from stopping Theophylline abruptly. Usually this medication is weaned 3. Follow up cardiology recs. Stable for transfer out of ICU.
--- NOTE | 2019-07-08 13:07 | Progress Note ---
Assessment and Plan Echo reviewed - EF 50-55%, abnormal diastolic function, mild MR. Arrhythmia was initially suspected to be secondary to Theophylline toxicity, however, theophylline level resulted as 8.9. Recommend continuing to hold Theophylline as this medication within therapeutic range may still contribute to tachyarrhythmias. Per pulmonary, ok with holding for now and monitor for acute bronchospasm from stopping Theophylline abruptly. Initiate PO cardizem. Pt may tx out of CCU to telemetry from cardiology standpoint. Encourage increased activity and ambulation today as pt has not yet been OOB. The patient has been seen in conjunction with Dr. Carmelita Bassett who agrees with the assessment and plan of care. - Patient Problems (1) Junctional tachycardia Current Visit: Yes Status: Acute (2) Palpitations Current Visit: Yes Status: Acute (3) HTN (hypertension) Current Visit: Yes Status: Chronic Qualifiers: Hypertension type: essential hypertension Qualified Code(s): I10 - Essential (primary) hypertension (4) Hyperlipidemia Current Visit: Yes Status: Chronic (5) Asthma Current Visit: Yes Status: Chronic Subjective Date of service: 07/08/19 Principal diagnosis: junctional tachycardia Interval history: pt resting in bed, states he is feeling better today. He was in SR with 1st deg AV block HR 80s this AM and then converted back to junctional tachycardia with HR 100s. Objective Last Vital Signs Temp 98.2 F 07/08/19 12:00 Pulse 101 H 07/08/19 10:00 Resp 16 07/08/19 06:30 BP 120/69 07/08/19 10:00 Pulse Ox 97 07/08/19 06:30 - Physical Examination General: No Apparent Distress HEENT: Positive: PERRL, Normocephaly, Mucus Membranes Moist Neck: Positive: neck supple, trachea midline Cardiac: Positive: Regular Rhythm, S1/S2 Lungs: Positive: Decreased Breath Sounds Neuro: Positive: Grossly Intact Abdomen: Negative: Tender Skin: Negative: Rash Musculoskeletal: No Pain Extremities: Absent: edema - Labs and Meds Cardiac Enzymes 07/08/19 Range/Units 05:11 AST 14 (5-40) units/L CBC 07/08/19 Range/Units 05:11 WBC 3.7 L (4.5-11.0) K/mm3 RBC 4.12 (3.65-5.03) M/mm3 Hgb 11.7 L (11.8-15.2) gm/dl Hct 34.9 L (35.5-45.6) % Plt Count 132 L (140-440) K/mm3 Lymph # 1.0 L (1.2-5.4) K/mm3 [place] # 0.4 (0.0-0.8) K/mm3 Eos # 0.1 (0.0-0.4) K/mm3 Baso # 0.0 (0.0-0.1) K/mm3 Comprehensive Metabolic Panel 07/07/19 07/08/19 Range/Units 12:08 05:11 Sodium 142 143 (137-145) mmol/L Potassium 4.8 4.7 (3.6-5.0) mmol/L Chloride 105.4 110.5 H (98-107) mmol/L Carbon Dioxide 20 L 23 (22-30) mmol/L BUN 18 16 (9-20) mg/dL Creatinine 1.5 1.2 (0.8-1.5) mg/dL Glucose 107 H 95 (75-100) mg/dL Calcium 9.6 8.7 (8.4-10.2) mg/dL AST 14 (5-40) units/L ALT 8 (7-56) units/L Alkaline Phosphatase 65 (35-129) units/L Total Protein 6.4 (6.3-8.2) g/dL Albumin 3.4 L (3.9-5) g/dL - Imaging and Cardiology EKG: report reviewed, image reviewed Echo: report reviewed (08/2018 showed EF 50-55%, asymmetric LVH, grade 2 diastolic dysfunction, mild MR and TR. )
[2019-07-08] MEDS: dilTIAZem 60 MG TAB PO SCH ×2 (13:37→22:01)
--- NOTE | 2019-07-08 15:45 | Progress Note ---
Assessment and Plan Assessment and plan: Junctional tachycardia. Echo revealed EF 50-55%, abnormal diastolic function, mild MR. Hold Theophylline as this medication within therapeutic range may still contribute to tachyarrhythmias. Asthma. Compensated HTN. resume antihypertenmsive meds HLD. History Interval history: Nlo new issues Hospitalist Physical - Constitutional Vitals: Temp Pulse Resp BP Pulse Ox 98.2 F 86 18 132/81 98 07/08/19 12:00 07/08/19 13:37 07/08/19 12:00 07/08/19 13:37 07/08/19 12:00 General appearance: Present: mild distress - EENT Eyes: Present: PERRL, EOM intact ENT: hearing intact, clear oral mucosa, dentition normal - Neck Neck: Present: supple, normal ROM - Respiratory Respiratory effort: normal Respiratory: bilateral: CTA - Cardiovascular Rhythm: regular Heart Sounds: Present: S1 & S2. Absent: gallop, rub - Extremities Extremities: no ischemia, No edema, Full ROM - Abdominal General gastrointestinal: soft, non-tender, non-distended, normal bowel sounds - Integumentary Integumentary: Present: clear, warm, dry - Neurologic Neurologic: CNII-XII intact, moves all extremities Results - Labs CBC & Chem 7: 07/08/19 05:11 07/08/19 05:11 Labs: Laboratory Last Values WBC 3.7 K/mm3 (4.5-11.0) L 07/08/19 05:11 RBC 4.12 M/mm3 (3.65-5.03) 07/08/19 05:11 Hgb 11.7 gm/dl (11.8-15.2) L 07/08/19 05:11 Hct 34.9 % (35.5-45.6) L 07/08/19 05:11 MCV 85 fl (84-94) 07/08/19 05:11 MCH 28 pg (28-32) 07/08/19 05:11 MCHC 34 % (32-34) 07/08/19 05:11 RDW 13.9 % (13.2-15.2) 07/08/19 05:11 Plt Count 132 K/mm3 (140-440) L 07/08/19 05:11 Lymph % (Auto) 25.9 % (13.4-35.0) 07/08/19 05:11 [place] % (Auto) 11.5 % (0.0-7.3) H 07/08/19 05:11 Eos % (Auto) 3.7 % (0.0-4.3) 07/08/19 05:11 Baso % (Auto) 1.2 % (0.0-1.8) 07/08/19 05:11 Lymph # 1.0 K/mm3 (1.2-5.4) L 07/08/19 05:11 [place] # 0.4 K/mm3 (0.0-0.8) 07/08/19 05:11 Eos # 0.1 K/mm3 (0.0-0.4) 07/08/19 05:11 Baso # 0.0 K/mm3 (0.0-0.1) 07/08/19 05:11 Seg Neutrophils % 57.7 % (40.0-70.0) 07/08/19 05:11 Seg Neutrophils # 2.1 K/mm3 (1.8-7.7) 07/08/19 05:11 Sodium 143 mmol/L (137-145) 07/08/19 05:11 Potassium 4.7 mmol/L (3.6-5.0) 07/08/19 05:11 Chloride 110.5 mmol/L (98-107) H 07/08/19 05:11 Carbon Dioxide 23 mmol/L (22-30) 07/08/19 05:11 Anion Gap 14 mmol/L 07/08/19 05:11 BUN 16 mg/dL (9-20) 07/08/19 05:11 Creatinine 1.2 mg/dL (0.8-1.5) 07/08/19 05:11 Estimated GFR > 60 ml/min 07/08/19 05:11 BUN/Creatinine Ratio 13 % 07/08/19 05:11 Glucose 95 mg/dL (75-100) 07/08/19 05:11 Calcium 8.7 mg/dL (8.4-10.2) 07/08/19 05:11 Total Bilirubin 0.50 mg/dL (0.1-1.2) 07/08/19 05:11 AST 14 units/L (5-40) 07/08/19 05:11 ALT 8 units/L (7-56) 07/08/19 05:11 Alkaline Phosphatase 65 units/L (35-129) 07/08/19 05:11 Troponin T < 0.010 ng/mL (0.00-0.029) 07/07/19 12:08 Total Protein 6.4 g/dL (6.3-8.2) 07/08/19 05:11 Albumin 3.4 g/dL (3.9-5) L 07/08/19 05:11 Albumin/Globulin Ratio 1.1 % 07/08/19 05:11 TSH 2.580 mlU/mL (0.270-4.200) 07/07/19 12:08 Theophylline 8.9 ug/mL (10.0-20.0) L 07/07/19 13:33 Active Medications - Current Medications Current Medications: Generic Name Dose Route Start Last Admin Trade Name Freq PRN Reason Stop Dose Admin Diltiazem HCl 60 mg 07/08/19 14:00 07/08/19 13:37 Cardizem PO 60 mg BID JULES Administration Doxazosin Mesylate 4 mg 07/07/19 15:00 07/08/19 10:00 Cardura PO 4 mg BID JULES Administration Levetiracetam 750 mg 07/07/19 15:00 07/08/19 10:00 Keppra PO 750 mg BID JULES Administration Pantoprazole Sodium 40 mg 07/07/19 15:00 07/08/19 10:00 Protonix PO 40 mg QDAY JULES Administration Sodium Chloride 10 ml 07/07/19 22:00 07/08/19 10:00 Sodium Chloride Flush Syringe 10 Ml IV 10 ml BID JULES Administration Sodium Chloride 10 ml 07/07/19 14:06 Sodium Chloride Flush Syringe 10 Ml IV PRN PRN LINE FLUSH Nutrition/Malnutrition Assess - Dietary Evaluation Nutrition/Malnutrition Findings: Nutrition Notes Start: 07/08/19 10:07 Freq: Status: Active Protocol: Document 07/08/19 10:09 DW (Rec: 07/08/19 10:11 DW [email or web address]) Co-Sign 07/08/19 10:09 LP Nutrition Notes Need for Assessment 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
[2019-07-09] MEDS: DOXAZOSIN 4 MG TAB PO SCH (09:35)
[2019-07-09] MEDS: levETIRAcetam 500 MG TAB PO SCH (09:36)
[2019-07-09] MEDS: dilTIAZem 60 MG TAB PO SCH ×3 (09:36→19:12)
[2019-07-09] MEDS: PANTOPRAZOLE 40 MG TAB PO SCH (09:36)
--- NOTE | 2019-07-09 13:58 | Progress Note ---
Assessment and Plan 74 y/o with irregular heart rhythm. 1. No objection to discharge today. 2. If discharge will need new script for Theophylline 200mg PO daily. 3. If not discharged will need to have Theophylline ordered for inhouse therapy. Same dose as listed above 4. Follow up with [facility] as an outpatient. Subjective Date of service: 07/09/19 Principal diagnosis: junctional tachycardia Interval history: No acute events. Stable pulm status. Objective Vital Signs - 12hr 07/09/19 07/09/19 07/09/19 04:15 08:21 08:23 Temperature 98.3 F 98.3 F Pulse Rate 92 H 108 H Respiratory 18 20 18 Rate Blood Pressure 141/80 159/87 O2 Sat by Pulse 95 96 Oximetry 07/09/19 07/09/19 07/09/19 09:35 09:36 10:00 Temperature Pulse Rate 108 H 108 H 95 H Respiratory Rate Blood Pressure 159/87 159/87 O2 Sat by Pulse Oximetry 07/09/19 11:53 Temperature 97.7 F Pulse Rate 96 H Respiratory 20 Rate Blood Pressure 141/83 O2 Sat by Pulse 99 Oximetry CBC and BMP: 07/08/19 05:11 07/08/19 05:11 Abnormal lab findings: Abnormal Labs 07/07/19 07/07/19 07/07/19 12:08 12:08 13:33 WBC 3.9 L Hgb Hct Plt Count 133 L Boyd % (Auto) 9.6 H Lymph # 0.8 L Chloride Carbon Dioxide 20 L Glucose 107 H Albumin Theophylline 8.9 L 07/08/19 07/08/19 05:11 05:11 WBC 3.7 L Hgb 11.7 L Hct 34.9 L Plt Count 132 L Boyd % (Auto) 11.5 H Lymph # 1.0 L Chloride 110.5 H Carbon Dioxide Glucose Albumin 3.4 L Theophylline
--- NOTE | 2019-07-09 14:06 | Progress Note ---
Assessment and Plan Currently stable cardiac status. Pt is in NSR HR 90s with 1st degree AVB, significantly prolonged VA interval noted. Optimize HR - increase cardizem to 60mg TID. Pulmonary input appreciated. Per pulmonary - no objection to discharge today, resumption of Theophylline at lower dosage of 200mg daily recommended. Currently stable cardiac status. Pt may discharge home from cardiology standpoint. Pt is to present to our [place] office on 07/11/2019 @ 1:45PM for initiation of 7 day event monitor. Follow up in our [place] office with Dr. Nieves on 07/23/2019 @ 10:30AM. The patient has been seen in conjunction with Dr. Carmelita Bassett who agrees with the assessment and plan of care. - Patient Problems (1) Junctional tachycardia Current Visit: Yes Status: Resolved (2) First degree AV block Current Visit: Yes Status: Chronic (3) Palpitations Current Visit: Yes Status: Resolved (4) HTN (hypertension) Current Visit: Yes Status: Chronic Qualifiers: Hypertension type: essential hypertension Qualified Code(s): I10 - Essential (primary) hypertension (5) Hyperlipidemia Current Visit: Yes Status: Chronic (6) Asthma Current Visit: Yes Status: Chronic Subjective Date of service: 07/09/19 Principal diagnosis: junctional tachycardia Interval history: pt resting up in chair, no current complaints. he has been ambulating around unit without difficulty. currently in SR HR 90s with 1st degree AVB, significantly prolonged VA interval. Objective Last Vital Signs Temp 97.7 F 07/09/19 11:53 Pulse 96 H 07/09/19 13:58 Resp 20 07/09/19 11:53 BP 141/83 07/09/19 13:58 Pulse Ox 99 07/09/19 11:53 - Physical Examination General: No Apparent Distress HEENT: Positive: PERRL, Normocephaly, Mucus Membranes Moist Neck: Positive: neck supple, trachea midline Cardiac: Positive: Reg Rate and Rhythm, S1/S2 Lungs: Positive: Decreased Breath Sounds Neuro: Positive: Grossly Intact Abdomen: Negative: Tender Skin: Negative: Rash Musculoskeletal: No Pain Extremities: Absent: edema - Imaging and Cardiology EKG: report reviewed, image reviewed Echo: report reviewed (06/2019: EF 50-55%, abnormal diastolic function, mild MR. 08/2018 showed EF 50-55%, asymmetric LVH, grade 2 diastolic dysfunction, mild MR and TR. ) - Telemetry EKG Rhythm: Sinus Rhythm
--- NOTE | 2019-07-09 17:59 | Discharge Summary ---
Providers - Providers Date of Admission: 07/07/19 14:06 Date of discharge: 07/09/19 Attending physician: RICK BAUER 07/07/19 19:24 Consult to Physician [CONS] Routine Comment: Consulting Provider: JESSY HAUSER Physician Instructions: Reason For Exam: ICU MTG. Thyeophyline toxicity Primary care physician: JAMAL EARL Hospitalization Reason for admission: sob Condition: Fair Hospital course: The pt is a 74-year-old male with a past medical history of HTN, HLP, CKD, asthma, on theophylline. Pt was seen in account support rep office [employer] with c/o intermittent palpitations for the past 5 days. He was seen by nephrology, Dr. Aguero, and sent to account support rep for heart rate in the 130s. EKG in office showed atrial tachycardia 115 with possible retrograde conduction. In view of his asthma being on theophylline he was sent to ED for further eval/management. Following arrival to ED, EKG showed junctional tachycardia with retrograde conduction. He was given 6 mg, then 12 mg, of adenosine without cardioversion into sinus rhythm. He remains in junctional tachycardia with HR 110s. Cardiology and Pulmonology consulted on the pt. Theophyline was held and tapered slightly. Pulm and cardiolgy felt pt could d/c home. At, Discharge will need new script for Theophylline 200mg PO daily. 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 (4) Junctional tachycardia Status: Resolved (5) Palpitations Status: Resolved Core Measure Documentation - Palliative Care Palliative Care/ Comfort Measures: Not Applicable - Core Measures Any of the following diagnoses?: none Exam - Constitutional Vitals: Temp Pulse Resp BP Pulse Ox 98.6 F 96 H 20 140/78 99 07/09/19 16:59 07/09/19 16:59 07/09/19 16:59 07/09/19 16:59 07/09/19 16:59 General appearance: Present: no acute distress, well-nourished - EENT Eyes: Present: PERRL ENT: hearing intact, clear oral mucosa - Neck Neck: Present: supple, normal ROM - Respiratory Respiratory effort: normal Respiratory: bilateral: CTA - Cardiovascular Heart Sounds: Present: S1 & S2. Absent: rub, click - Extremities Extremities: pulses symmetrical, No edema Peripheral Pulses: within normal limits - Abdominal General gastrointestinal: Present: soft, non-tender, non-distended, normal bowel sounds Male genitourinary: Present: normal - Integumentary Integumentary: Present: clear, warm, dry - Musculoskeletal Musculoskeletal: gait normal, strength equal bilaterally - Psychiatric Psychiatric: appropriate mood/affect, intact judgment & insight - Neurologic Neurologic: CNII-XII intact, moves all extremities Plan Activity: no restrictions Weight Bearing Status: Weight Bear as Tolerated Additional Instructions: t is to present to our [place] office on 07/11/2019 @ 1:45PM for initiation of 7 day event monitor. Follow up in our [place] office with Dr. Medina on 07/23/2019 @ 10:30AM. Follow up with: JAMAL EARL MD [Primary Care Provider] - 7 Days JOHNNY MEDINA MD [Staff Physician] - 7 Days (Present to our [place] office on 07/11/2019 @ 1:45PM for initiation of 7 day event monitor. Follow up in our [place] office with Dr. Medina on 07/23/2019 @ 10:30AM. ) Prescriptions: dilTIAZem [Cardizem] 60 mg PO TID #90 tablet Doxazosin Mesylate [Cardura Xl] 4 mg PO BID #60 Keppra TAB 750 mg PO BID #60 Amlodipine Besylate [Norvasc] 5 mg PO DAILY #30 Pantoprazole [Protonix TAB] 40 mg PO QDAY #30 tablet Theophylline Anhydrous [Theophylline] 200 mg PO DAILY #30 tab.er.24h Metoprolol Succinate [Toprol Xl] 25 mg PO QDAY #30 Lisinopril [Zestril TAB] 40 mg PO QDAY #30 tab
[2019-07-09 19:13] VITALS: BP 141/83
[2019-07-10] MEDS ORDERED: LISINOPRIL 40 MG TAB PO SCH (10:00)
[2019-07-10] MEDS ORDERED: amLODIPine 5 MG TAB PO SCH (10:00)
[2019-07-10] MEDS ORDERED: METOPROLOL SUCCINATE XL 25 MG TAB PO SCH (10:00)
== END 2019-07-09 19:31 | disposition home or self-care (01) | DRG 310 ==
LOC: ED 11:31 → CC1 14:06 → 4A 07-08 13:55
PROVIDERS: ADMIT Internal Medicine; ATTEND Hospitalist
DX: I47.1 Supraventricular tachycardia (principal); G40.909 Epilepsy, unspecified, not intractable, without status epilepticus; D86.9 Sarcoidosis, unspecified; T48.6X5A Adverse effect of antiasthmatics, initial encounter; I12.9 Hypertensive chronic kidney disease with stage 1 through stage 4 chronic kidney disease, or unspecified chronic kidney disease; J45.909 Unspecified asthma, uncomplicated; N18.9 Chronic kidney disease, unspecified; E78.5 Hyperlipidemia, unspecified; I44.0 Atrioventricular block, first degree; Z98.49 Cataract extraction status, unspecified eye; Z82.49 Family history of ischemic heart disease and other diseases of the circulatory system; Z79.899 Other long term (current) drug therapy; Y92.098 Other place in other non-institutional residence as the place of occurrence of the external cause
CPT/HCPCS: 36415; 71045; 80048; 80053; 80198; 84443; 84484; 85025; 93005; 93010; 93306; G0378; J0153; J7030

== ENCOUNTER 2019-12-07 16:24 | Emergency (ER) | payer MEDICARE ==
[2019-12-07] MEDS ORDERED: GLUCAGON (HUMAN RECOMBINANT) 1 MG/ML INJ IV ONE (16:45)
[2019-12-07] MEDS ORDERED: LORazepam 2 MG/ML VIAL IV ONE (16:45)
[2019-12-07] MEDS ORDERED: SODIUM CHLORIDE 0.9% 1000 ML 1,000 ML IV ONE (16:46)
--- NOTE | 2019-12-07 16:50 | Emergency Department Report ---
ED General Adult HPI - General Stated complaint: DIFFICULITY IN SWALLOWING Time Seen by Provider: 12/07/19 16:30 Source: patient - History of Present Illness Initial comments: Patient is 74 years old male with history of hypertension and seizure. Patient brought to the emergency room from home via EMS for evaluation of difficulty swallowing. Patient stated that he took his pill yesterday and a few minutes later he felt it stuck in his throat. Patient stated that since then he is unable to tolerate any liquid or solid food. Patient stated that he will drink in a few minutes later he will have emesis. Patient denied any weakness, numbness or tingling sensation. Patient stated had this issue before in he has esophageal dilatation by Dr. Jerardo Jean Baptiste, GI probably 5 years ago. - Related Data Home Medications Medication Instructions Recorded Confirmed Last Taken Ketorolac Tromethamin 0.4%(Nf) 1 drop OU 4XD 07/07/19 07/08/19 Unknown [Acular Ls 0.4% Ophth Gina] Albuterol Sulfate 1 inh INHALATION PRN PRN 07/08/19 07/08/19 Unknown Albuterol Sulfate 1 vial INHALATION PRN PRN 07/08/19 07/08/19 Unknown Latanoprost 0.005% 1 drop OU HS 07/08/19 07/08/19 Unknown Previous Rx's Medication Instructions Recorded Last Taken Type Amlodipine Besylate [Norvasc] 5 mg PO DAILY #30 07/09/19 Unknown Rx Doxazosin Mesylate [Cardura Xl] 4 mg PO BID #60 07/09/19 Unknown Rx Keppra TAB 750 mg PO BID #60 07/09/19 Unknown Rx Metoprolol Succinate [Toprol Xl] 25 mg PO QDAY #30 07/09/19 Unknown Rx Pantoprazole [Protonix TAB] 40 mg PO QDAY #30 tablet 07/09/19 Unknown Rx Theophylline Anhydrous 200 mg PO DAILY #30 tab.er.24h 07/09/19 Unknown Rx [Theophylline] dilTIAZem [Cardizem] 60 mg PO TID #90 tablet 07/09/19 Unknown Rx lisinopriL [Zestril TAB] 40 mg PO QDAY #30 tab 07/09/19 Unknown Rx Allergies Allergy/AdvReac Type Severity Reaction Status Date / Time No Known Allergies Allergy Verified 05/12/15 19:23 ED Review of Systems ROS: Stated complaint: DIFFICULITY IN SWALLOWING Other details as noted in HPI Comment: All other systems reviewed and negative Constitutional: denies: chills, fever Respiratory: denies: cough, shortness of breath, SOB with exertion Cardiovascular: denies: chest pain, palpitations Gastrointestinal: denies: abdominal pain, nausea, vomiting Musculoskeletal: denies: back pain Neurological: denies: headache, weakness ED Past Medical Hx - Past Medical History Hx Hypertension: Yes Hx Seizures: Yes - Surgical History Additional Surgical History: Cataract 08/2014 kristina eyes. right shoulder surgery - Social History Smoking Status: Never Smoker - Medications Home Medications: Home Medications Medication Instructions Recorded Confirmed Last Taken Type Ketorolac Tromethamin 0.4%(Nf) 1 drop OU 4XD 07/07/19 07/08/19 Unknown History [Acular Ls 0.4% Ophth Gina] Albuterol Sulfate 1 inh INHALATION PRN PRN 07/08/19 07/08/19 Unknown History Albuterol Sulfate 1 vial INHALATION PRN PRN 07/08/19 07/08/19 Unknown History Latanoprost 0.005% 1 drop OU HS 07/08/19 07/08/19 Unknown History Amlodipine Besylate [Norvasc] 5 mg PO DAILY #30 07/09/19 Unknown Rx Doxazosin Mesylate [Cardura Xl] 4 mg PO BID #60 07/09/19 Unknown Rx Keppra TAB 750 mg PO BID #60 07/09/19 Unknown Rx Metoprolol Succinate [Toprol Xl] 25 mg PO QDAY #30 07/09/19 Unknown Rx Pantoprazole [Protonix TAB] 40 mg PO QDAY #30 tablet 07/09/19 Unknown Rx Theophylline Anhydrous 200 mg PO DAILY #30 tab.er.24h 07/09/19 Unknown Rx [Theophylline] dilTIAZem [Cardizem] 60 mg PO TID #90 tablet 07/09/19 Unknown Rx lisinopriL [Zestril TAB] 40 mg PO QDAY #30 tab 07/09/19 Unknown Rx ED Physical Exam - General General appearance: alert, in no apparent distress - Head Head exam: Present: atraumatic, normocephalic, normal inspection - Eye Eye exam: Present: normal appearance - ENT ENT exam: Present: normal exam - Neck Neck exam: Present: normal inspection, full ROM. Absent: tenderness, meningismus - Respiratory Respiratory exam: Present: normal lung sounds bilaterally - Cardiovascular Cardiovascular Exam: Present: regular rate, normal rhythm, normal heart sounds - GI/Abdominal GI/Abdominal exam: Present: soft, normal bowel sounds. Absent: distended, tenderness, guarding, rebound, rigid, organomegaly, mass, bruit, pulsatile mass, hernia - Extremities Exam Extremities exam: Present: normal inspection, full ROM, normal capillary refill - Back Exam Back exam: Present: normal inspection, full ROM. Absent: CVA tenderness (R), CVA tenderness (L) - Neurological Exam Neurological exam: Present: alert, oriented X3, CN II-XII intact, normal gait, reflexes normal. Absent: motor sensory deficit - Psychiatric Psychiatric exam: Present: normal mood - Skin Skin exam: Present: warm, intact, normal color ED Course Vital Signs 12/07/19 12/07/19 12/07/19 16:45 17:14 17:32 Temperature 99 F Pulse Rate 121 H 117 H 102 H Respiratory 17 16 Rate Blood Pressure 160/97 Blood Pressure 158/88 145/78 [Left] O2 Sat by Pulse 97 99 Oximetry ED Medical Decision Making - Lab Data Result diagrams: 12/07/19 16:40 12/07/19 16:40 - EKG Data -: EKG Interpreted by [facility] EKG shows normal: sinus rhythm Rate: tachycardia - EKG Data Interpretation: no acute changes - Radiology Data Radiology results: report reviewed - Medical Decision Making Patient is 74 years old male with history of hypertension and seizure. Patient brought to the emergency room from home via EMS for evaluation of difficulty swallowing. Patient stated that he took his pill yesterday and a few minutes later he felt it stuck in his throat. Patient stated that since then he is unable to tolerate any liquid or solid food. Patient stated that he will drink in a few minutes later he will have emesis. Patient denied any weakness, numbness or tingling sensation. Patient stated had this issue before in he has esophageal dilatation by Dr. Jerardo Jean Baptiste, GI probably 5 years ago. Patient given Ativan 1 mg IV and glucagon 1 mg IV. Patient is able to tolerate liquid very well with no vomiting. No evidence of stroke as patient stroke scale is 0. Patient stated that he is feeling much better and he wanted to go home. Patient given [facility] to follow-up in the next 2 to 3 days. Patient also advised to return to the ER if he develop any new symptoms. Critical care attestation.: If time is entered above; I have spent that time in minutes in the direct care of this critically ill patient, excluding procedure time. ED Disposition Clinical Impression: Dysphagia Disposition: DC-01 TO HOME OR SELFCARE Is pt being admited?: No Condition: Stable Instructions: Esophageal Spasm (ED), Chronic Dysphagia (ED) Referrals: PRIMARY CARE, [Primary Care Provider] - 3-5 Days
--- NOTE | 2019-12-07 17:25 | XRay Report ---
SOFT TISSUES NECK 2 VIEWS INDICATION / CLINICAL INFORMATION: Difficulty swallowing.. COMPARISON: None available. FINDINGS: Advanced cervical spondylosis, with very prominent anterior hypertrophic spurring, especially at C5-C 7. No abnormal soft tissue swelling. Epiglottis is normal. No radiopaque foreign body. IMPRESSION: Advanced cervical spondylosis. Otherwise negative study. Signer Name: Louie Jean Baptiste MD Signed: 12/07/2019 5:21 PM Workstation Name: [id number]
[2019-12-07 17:58] LABS: Basophils % (Auto) 0.9 % (0.0-1.8); Eosinophils % (Auto) 0.2 % (0.0-4.3); Hemoglobin 12.7 gm/dl (11.8-15.2); Lymphocytes # (Auto) 0.6 K/mm3 (1.2-5.4); Lymphocytes % (Auto) 17.4 % (13.4-35.0); Mean Corpuscular HGB Conc 33 % (32-34); Mean Corpuscular Volume 86 fl (84-94); Monocytes # (Auto) 0.2 K/mm3 (0.0-0.8); Monocytes % (Auto) 7.8 % (0.0-7.3); Platelet Count 138 K/mm3 (140-440); Red Blood Count 4.44 M/mm3 (3.65-5.03); Red Cell Distribution Width 14.3 % (13.2-15.2)
[2019-12-07 18:12] LABS: BUN/Creatinine Ratio 15; Blood Urea Nitrogen 19 mg/dL (9-20); Hemolysis Index 16
[2019-12-07 18:57] VITALS: BP 158/68
== END 2019-12-07 18:55 | disposition home or self-care (01) ==
LOC: ED 16:24
DX: R13.10 Dysphagia, unspecified (principal); I10 Essential (primary) hypertension; Z86.69 Personal history of other diseases of the nervous system and sense organs; Z79.899 Other long term (current) drug therapy; Z98.890 Other specified postprocedural states
CPT/HCPCS: 36415; 70360; 80048; 85025; 93005; 96374; 96375; 99284; J1610; J2060; J7030

== ENCOUNTER 2021-10-25 21:07 | Emergency (ER) | payer MEDICARE ==
[2021-10-25] MEDS ORDERED: levETIRAcetam 1000 MG/NS 0.75% 1,000 MG/100 ML BAG IV ONE (21:28)
--- NOTE | 2021-10-25 21:32 | Emergency Department Report ---
HPI - General Time Seen by Provider: 10/25/21 21:24 - HPI HPI: Room 4 The patient is a 76-year-old male present with chief complaint of seizure. Patient has history of seizures and he reports he has not been consistent with his Keppra. Patient had a generalized tonic-clonic seizure witnessed by his last approximately 5 to 6 minutes per EMS. When EMS arrived the patient was postictal. Patient starts awakening upon arrival to the ED but is still postictal and confused. ED Past Medical Hx - Past Medical History Hx Hypertension: Yes Hx Seizures: Yes Hx Asthma: Yes - Surgical History Additional Surgical History: Cataract 08/2014 kristina eyes. right shoulder surgery - Family History Family history: no significant - Social History Smoking Status: Never Smoker - Medications Home Medications: Home Medications Medication Instructions Recorded Confirmed Last Taken Type Ketorolac Tromethamin 0.4%(Nf) 1 drop OU 4XD 07/07/19 07/08/19 Unknown History [Acular Ls 0.4% Ophth Gina] Albuterol Sulfate 1 inh INHALATION PRN PRN 07/08/19 07/08/19 Unknown History Albuterol Sulfate 1 vial INHALATION PRN PRN 07/08/19 07/08/19 Unknown History Latanoprost 0.005% 1 drop OU HS 07/08/19 07/08/19 Unknown History Amlodipine Besylate [Norvasc] 5 mg PO DAILY #30 07/09/19 Unknown Rx Doxazosin Mesylate [Cardura Xl] 4 mg PO BID #60 07/09/19 Unknown Rx Metoprolol Succinate [Toprol Xl] 25 mg PO QDAY #30 07/09/19 Unknown Rx Pantoprazole [Protonix TAB] 40 mg PO QDAY #30 tablet 07/09/19 Unknown Rx Theophylline Anhydrous 200 mg PO DAILY #30 tab.er.24h 07/09/19 Unknown Rx [Theophylline] dilTIAZem [Cardizem] 60 mg PO TID #90 tablet 07/09/19 Unknown Rx lisinopriL [Zestril TAB] 40 mg PO QDAY #30 tab 07/09/19 Unknown Rx Keppra TAB 750 mg PO BID #60 10/25/21 Unknown Rx ED Review of Systems ROS: Stated complaint: SEIZURE Other details as noted in HPI Comment: Unobtainable due to pts medical conditions (Postictal) Physical Exam - Physical Exam Physical Exam: GENERAL: The patient is well-developed well-nourished male lying on stretcher awake but postictal. Patient appears confused and is unable to answer questions and is postictal state HEENT: Normocephalic. Atraumatic. Extraocular motions are intact. Patient has moist mucous membranes. NECK: Supple. Trachea midline CHEST/LUNGS: Clear to auscultation. There is no respiratory distress noted. HEART/CARDIOVASCULAR: Regular. There is tachycardia. There is no gallop rub or murmur. ABDOMEN: Abdomen is soft, nontender. Patient has normal bowel sounds. There is no abdominal distention. SKIN: There is no rash. There is no edema. There is no diaphoresis. NEURO: The patient is awake but disoriented/postictal. The patient is not cooperative with neurologic exam. The patient has normal speech MUSCULOSKELETAL: There is no evidence of acute injury. ED Course - Reevaluation(s) Reevaluation #1: 10/25/21 22:57 Patient now alert and oriented. Patient states he has a history of GERD and is having some heartburn currently. Will order GI cocktail. As patient is now alert he states he has been compliant with his [facility] ED Medical Decision Making - Lab Data Result diagrams: 10/25/21 21:49 10/25/21 21:49 - Differential Diagnosis Seizure Critical care attestation.: If time is entered above; I have spent that time in minutes in the direct care of this critically ill patient, excluding procedure time. ED Disposition Clinical Impression: Seizure, GERD (gastroesophageal reflux disease) Disposition: 01 HOME / SELF CARE / HOMELESS Is pt being admited?: No Does the pt Need Aspirin: No Condition: Stable Instructions: Epilepsy, [id number], Food Choices for Gastroesophageal Reflux Disease, Adult, [id number] Additional Instructions: Return to the emergency department should you develop worsening symptoms, inability to tolerate food or liquids, high fever or any other concerns Prescriptions: Keppra TAB 750 mg PO BID #60 Referrals: ANGELES GAXIOLA MD [Referring] - 3-5 Days Time of Disposition: 22:58
[2021-10-25 22:06] LABS: Basophils % (Auto) 0.5 % (0.0-1.8); Eosinophils # (Auto) 0.1 K/mm3 (0.0-0.4); Hematocrit 36.8 % (35.5-45.6); Lymphocytes # (Auto) 0.4 K/mm3 (1.2-5.4); Mean Corpuscular HGB Conc 33 % (32-34); Mean Corpuscular Volume 86 fl (84-94); Monocytes # (Auto) 0.5 K/mm3 (0.0-0.8); Monocytes % (Auto) 6.1 % (0.0-7.3); Platelet Count 144 K/mm3 (140-440); Red Blood Count 4.31 M/mm3 (3.65-5.03); Red Cell Distribution Width 14.8 % (13.2-15.2)
[2021-10-25 22:30] LABS: Calcium 9.4 mg/dL (8.4-10.2)
[2021-10-25] MEDS ORDERED: ALUM-MAG HYDROXIDE-SIMETHICONE 200-200-20MG/5ML ORAL LIQD 30 ML PO ONE (22:56)
[2021-10-25] MEDS ORDERED: LIDOCAINE VISCOUS 2% 15 ML ORAL LIQD PO ONE (22:56)
[2021-10-25 23:57] VITALS: BP 149/88
== END 2021-10-26 00:08 | disposition home or self-care (01) ==
LOC: ED 21:07
DX: K21.9 Gastro-esophageal reflux disease without esophagitis (principal); R56.9 Unspecified convulsions; I10 Essential (primary) hypertension; J45.909 Unspecified asthma, uncomplicated
CPT/HCPCS: 36415; 80048; 83735; 85025; 96374; 99284; J1953

== ENCOUNTER 2021-12-30 10:46 | Inpatient (IN) | payer MEDICARE ==
[2021-12-30] MEDS ORDERED: SODIUM CHLORIDE 0.9% 1000 ML 1,000 ML IV ONE (11:47)
--- NOTE | 2021-12-30 11:59 | Emergency Department Report ---
<RUTH RANKIN - Last Filed: 12/30/21 14:31> ED Palpitations HPI - General Chief Complaint: Arrhythmia/Palpitations Stated Complaint: HEART PROBLEMS Time Seen by Provider: 12/30/21 11:30 Source: patient Mode of arrival: Ambulatory Limitations: No Limitations - History of Present Illness Initial Comments: 76-year-old male who presents with palpitation as related with generalized body weakness that started about 2 weeks ago progressively getting worse. Patient reports that usually work about 2 miles a day but the last 2 weeks he has not been able to complete the task even if he started. Pt denies any alcohol d rinking or any illicit drug use. No other modifying or associated factors. - Related Data Home Medications Medication Instructions Recorded Confirmed Last Taken Albuterol Sulfate 1 inh INHALATION PRN PRN 07/08/19 12/30/21 12/29/21 08:00 750 mg Theophylline Anhydrous ER [Theodur] 300 mg PO ONCE 12/30/21 12/30/21 12/30/21 08:00 Previous Rx's Medication Instructions Recorded Last Taken Type Amlodipine Besylate [Norvasc] 5 mg PO DAILY #30 07/09/19 12/30/21 08:00 Rx 5 mg Doxazosin Mesylate [Cardura Xl] 4 mg PO BID #60 07/09/19 12/30/21 08:00 Rx Keppra TAB 750 mg PO BID #60 10/25/21 12/30/21 08:00 Rx 750 mg Allergies Allergy/AdvReac Type Severity Reaction Status Date / Time No Known Allergies Allergy Verified 12/30/21 12:49 ED Review of Systems Comment: All other systems reviewed and negative Constitutional: malaise, weakness ED Past Medical Hx - Past Medical History Hx Hypertension: Yes Hx Seizures: Yes Hx Asthma: Yes - Surgical History Additional Surgical History: Cataract 08/2014 [facility] eyes. right shoulder surgery - Social History Smoking Status: Never Smoker - Medications Home Medications: Home Medications Medication Instructions Recorded Confirmed Last Taken Type Albuterol Sulfate 1 inh INHALATION PRN PRN 07/08/19 12/30/21 12/29/21 08:00 History 750 mg Amlodipine Besylate [Norvasc] 5 mg PO DAILY #30 07/09/19 12/30/21 12/30/21 08:00 Rx 5 mg Doxazosin Mesylate [Cardura Xl] 4 mg PO BID #60 07/09/19 12/30/21 12/30/21 08:00 Rx Keppra TAB 750 mg PO BID #60 10/25/21 12/30/21 12/30/21 08:00 Rx 750 mg Theophylline Anhydrous ER [Theodur] 300 mg PO ONCE 12/30/21 12/30/21 12/30/21 08:00 History ED Physical Exam - General Limitations: No Limitations General appearance: alert - Eye Eye exam: Present: scleral icterus - ENT ENT exam: Present: normal exam, normal orophraynx, mucous membranes dry - Neck Neck exam: Present: normal inspection, full ROM. Absent: tenderness - Respiratory Respiratory exam: Present: normal lung sounds bilaterally. Absent: respiratory distress, accessory muscle use - Cardiovascular Cardiovascular Exam: Present: regular rate, tachycardia, normal heart sounds - GI/Abdominal GI/Abdominal exam: Present: soft, normal bowel sounds. Absent: distended, tenderness - Extremities Exam Extremities exam: Present: normal inspection, normal capillary refill. Absent: tenderness - Back Exam Back exam: Present: normal inspection. Absent: tenderness - Neurological Exam Neurological exam: Present: alert, oriented X3 - Psychiatric Psychiatric exam: Present: normal affect, normal mood - Skin Skin exam: Present: warm, cyanosis, pallor ED Course - Reevaluation(s) Reevaluation #1: 12/30/21 12:01 here with generalized muscle weakness and sob x the last 2 weeks and noted with cyanosis/ jaundice--patient diagnosis includes not limited to hepatitis, biliary obstruction, cholecystitis, hepatic mass, pancreatitis, cholangitis, myocardiac infarction-- and in other to rule those out will go ahead and order CBC, CMP, UA for any infectious process or electrolyte abnormality. We will also go ahead and order EKG continue tachycardia and cardiac enzyme/troponin with chest x-ray for any cardiopulmonary abnormality. In the meantime we will start IV fluid normal saline 1 L bolus x1 for hydration-- 12/30/21 12:07 And also hepatitis profile will be order to rule out any infectious cause of hepatitis. Reevaluation #2: 12/30/21 14:32 Lab review and noted elevated T bili at 17.3, AST and ALT 249/291 which elevated alk phos at 815--this parameter raise concern for obstructive hepatic mass so we will go ahead and order CT scan of the abdomen with IV contrast for further evaluation. Patient will be signed out to the incoming physician who will follow up on this imaging and order reported labs. ED Medical Decision Making - Lab Data Result diagrams: 12/30/21 11:46 12/30/21 11:46 ED Disposition Clinical Impression: Biliary obstruction, Liver masses, Elevated liver enzymes Disposition: ADMITTED INPATIENT Does the pt Need Aspirin: No Condition: Stable Time of Disposition: 14:36 (Patient signed out to Dr. Cano at shift change) <KESHIA CANO - Last Filed: 12/30/21 19:53> ED Review of Systems ROS: Stated complaint: HEART PROBLEMS Other details as noted in HPI ED Course Vital Signs 12/30/21 12/30/21 12/30/21 11:01 11:36 12:17 Temperature 98.2 F 98.1 F Pulse Rate 137 H 115 H 116 H Respiratory 16 19 18 Rate Blood Pressure 136/79 113/76 [Left] Blood Pressure 129/82 [Right] O2 Sat by Pulse 99 96 98 Oximetry 12/30/21 16:59 Temperature Pulse Rate 106 H Respiratory 20 Rate Blood Pressure 145/84 [Left] Blood Pressure 145/84 [Right] O2 Sat by Pulse 99 Oximetry ED Medical Decision Making - Lab Data Result diagrams: 12/30/21 11:46 12/30/21 11:46 - Medical Decision Making Patient signed out to me at shift change for follow-up imaging and disposition. CT shows multiple hepatic masses obscuring the biliary ducts with gallbladder distention. Worrisome for possible primary lesion or metastasis. I discussed case with Dr. Tyler (GI) who requests patient be made n.p.o. We will order MRI with and without contrast with MRCP protocol and initiate empiric antibiotic therapy. Will admit to hospitalist service. Critical care attestation.: If time is entered above; I have spent that time in minutes in the direct care of this critically ill patient, excluding procedure time. ED Disposition Is pt being admited?: Yes
[2021-12-30 13:08] LABS: Alanine Aminotransferase 291 units/L (7-56); Albumin 3.7 g/dL (3.9-5); BUN/Creatinine Ratio 14; Blood Urea Nitrogen 13 mg/dL (9-20); Calcium 9.8 mg/dL (8.4-10.2); Hemolysis Index 0
[2021-12-30 13:10] LABS: Basophils # (Auto) 0.1 K/mm3 (0.0-0.1); Basophils % (Auto) 0.8 % (0.0-1.8); Eosinophils % (Auto) 0.2 % (0.0-4.3); Hematocrit 33.3 % (35.5-45.6); Hemoglobin 11.2 gm/dl (11.8-15.2); Lymphocytes # (Auto) 0.5 K/mm3 (1.2-5.4); Lymphocytes % (Auto) 6.5 % (13.4-35.0); Mean Corpuscular HGB Conc 34 % (32-34); Mean Corpuscular Volume 85 fl (84-94); Monocytes # (Auto) 0.8 K/mm3 (0.0-0.8); Monocytes % (Auto) 9.5 % (0.0-7.3); Platelet Count 195 K/mm3 (140-440); Red Cell Distribution Width 16.7 % (13.2-15.2)
[2021-12-30 13:22] LABS: Amphetamine Screen,Urine Negative; Cannabinoid Screen,Urine Negative; Cocaine Screen,Urine Negative; Methadone Screen,Urine Negative; Opiate Screen,Urine Negative
[2021-12-30 13:22] LABS: Partial Thromboplastin Time 27.9 Sec. (24.2-36.6)
[2021-12-30 13:23] LABS: Amorphous Crystals,Urine 1+; Bacteria,Urine 1+ /HPF (Negative); Bilirubin,Urine MOD (Negative); Blood,Urine NEG (Negative); Color,Urine Amber (Yellow); Hyaline Casts,Urine 14 /LPF
[2021-12-30 13:29] LABS: Ictotest,Urine Positive (Negative)
[2021-12-30 13:31] LABS: Hepatitis B Surface Antigen Non-Reactive (Negative); Hepatitis C Virus Antibody Non-Reactive (NonReactive)
[2021-12-30 13:33] LABS: Benzodiazepines Screen,Urine Negative
--- NOTE | 2021-12-30 16:06 | Cat Scan Report ---
CT ABDOMEN AND PELVIS WITH CONTRAST INDICATION / CLINICAL INFORMATION: transaminitis with elevated t-bili obst mass. TECHNIQUE: Axial CT images were obtained through the abdomen and pelvis after 100 cc Omnipaque [address] scans at this location are performed using CT dose reduction for ALARA by means of automated exposure control. COMPARISON: None available. FINDINGS: LOWER CHEST: 3 mm pleural-based pulmonary nodule left lower lobe image #32. Moderate dependent atelec tatic changes of the lower lobes. Additional 4-5 mm subpleural pulmonary nodule right lower lobe imag e #26. LIVER: Innumerable hypoattenuating lesions are noted throughout the liver. The largest of these exist near the logan hepatis and within the caudate lobe. Lesions within the caudate lobe measure 3.7 x 2. 5 cm image #56 and 2.8 x 1.8 cm image #50. Distal main portal vein is significantly effaced. GALLBLADDER: Gallbladder is distended and contains a partially calcified gallstone measuring up to 2. 6 cm greatest dimension. Additional smaller gallstones are suggested within the fundus. Small amount of pericholecystic fluid is present. The cystic duct extends into the region of the described masses near the logan hepatis. BILE DUCTS: Not well visualized. SPLEEN: No significant abnormality. PANCREAS: No significant abnormality. ADRENALS: No significant abnormality. KIDNEYS/URETERS: Right renal cysts measuring up to 3.6 cm is present upper pole. Additional smaller c ysts are present within the mid and lower right kidney the larger lower pole cyst measuring 3.3 cm. N onobstructing lower pole nephrolith within the right kidney measures 8 mm. Multiple left renal cysts are demonstrated smaller than a centimeter. Multiple left nephroliths are p resent, the largest within the posterior calyx of the mid kidney measuring 1.4 cm. STOMACH / DUODENUM / SMALL BOWEL: The GE junction appears thickened and somewhat indistinct. No speci fic abnormality of the gastric wall is otherwise demonstrated. The duodenum and small bowel demonstra te no specific evidence of significant pathology. COLON: No distinct colonic lesion. APPENDIX: No significant abnormality. PERITONEUM: Mild diastases of the anterior rectus muscle is present. Mixed attenuation within the ome ntum adjacent to gallbladder is demonstrated. LYMPH NODES: No significant adenopathy. AORTA / ARTERIES: Severe atherosclerotic calcification without acute abnormality. IVC / VEINS: No significant abnormality. URINARY BLADDER: No significant abnormality. REPRODUCTIVE ORGANS: Prostate is borderline in size to minimally enlarged. Incidental note made of fl uid within the right inguinal canal. ADDITIONAL ABDOMINAL/PELVIC FINDINGS: None. SKELETAL SYSTEM: Grade 1 anterolisthesis of L4 on L5. Moderate to severe loss of intervertebral disc space with associated vacuum disc phenomenon present at L4-5 and L5-S1. In addition, multilevel facet arthropathy is present throughout the lumbar spine moderate with regard to severity. Chronic patience liyah deformity of L1 demonstrated. IMPRESSION: 1. Numerous hepatic lesions with masses in the region of the logan hepatis obscuring the biliary duct s and resulting in distention of the gallbladder. Differential considerations in addition to metastat ic disease would include cholangiocarcinoma. 2. Prominence of the GE junction with indistinct margins of the gastric wall in the region of the GE junction. Correlation with EGD recommended. 3. Near total effacement of the distal main portal vein. 4. Nonspecific mixed attenuation of the omentum in the region of the gallbladder. Developing omental cake not excluded. 5. Small volume pericholecystic ascites and ascites along the anterior margin of the right hepatic lo be. Signer Name: Edil Carreno II, MD Signed: 12/30/2021 4:02 PM Workstation Name: [id number]
--- NOTE | 2021-12-30 17:00 | Ultrasound Report ---
LIMITED RUQ ABDOMINAL ULTRASOUND INDICATION: Elevated LFTs, jaundice. COMPARISON: CT abdomen/pelvis from today. FINDINGS: Pancreas: Visualized portions show no significant abnormality. Abdominal Aorta: Normal size. IVC: No significant abnormality. Liver: The liver measures 19.4 cm in length. There are numerable hypodensities throughout the liver similar to the CAT scan from today, presumably masses and/or biliary ductal dilatation. Normal hepato pedal blood flow in the main portal vein. Gallbladder: The gallbladder is grossly distended with an internal stone measuring 4.4 cm in length a nd 1.4 cm in maximal diameter. No convincing gallbladder wall thickening. There is a trace amount of pericholecystic fluid which was better seen on the CT from today but this could certainly be related to liver disease. Bile ducts: No significant abnormality. Common bile duct measures 3 mm. Right kidney: Multiple simple cysts are again noted, better demonstrated on the comparison CT. Free fluid: None. Additional Findings: None. IMPRESSION: 1. Grossly abnormal exam overall much better evaluated on the CT from today which demonstrated innume rable masses/dilated biliary ducts. Findings most likely reflect metastatic disease versus cholangioc arcinoma. 2. Cholelithiasis with single large somewhat tubular gallstone. Signer Name: Fidencio Cochran MD Signed: 12/30/2021 4:56 PM Workstation Name: [id number]
--- NOTE | 2021-12-30 17:37 | Consultation ---
History of Present Illness - Reason for Consult Consult date: 12/30/21 Liver masses/jaundice Requesting physician: RUTH RANKIN - History of Present Illness 76 YO Male with HTN, Mild Intermittent Asthma, Seizure Disorder presents to ED for evaluation. Patient reports "I am just weak". Patient states he has experienced generalized weakness over the past 3 weeks with progressively worsening symptoms over the same timeframe. Patient also acknowledges un intentional 15 pound weight loss over the past week. Patient was seen and evaluated by his primary care physician and treated as outpatient for bronchitis without improvement in symptoms. Patient subsequently failed outpatient therapy. Patient transported to [facility] via private vehicle for further care and evaluation of the aforementioned symptoms. The patient was seen and evaluated in the emergency department. All lab and imaging studies reviewed. Patient underwent CT scan of the abdomen and pelvis and was found to have lung nodules with concomitant metastatic liver lesions consistent with hepatocellular carcinoma versus lung cancer with metastatic spread to the liver. Patient also found to have obstructive jaundice. Patient denies fever, chills, chest pain, palpitation, adductive cough, skin rash, recent contact, or known exposure to COVID-19. No prior admission for review. All medication listed at time of admission has been reconciled. Advanced care planning conducted in ED. Past History Past Medical History: hypertension, seizures Past Surgical History: cataract removal, Other (Shoulder surgery) Social history: , lives with family Family history: hypertension Medications and Allergies Allergies Allergy/AdvReac Type Severity Reaction Status Date / Time No Known Allergies Allergy Verified 12/30/21 12:49 Home Medications Medication Instructions Recorded Confirmed Last Taken Type Albuterol Sulfate 1 inh INHALATION PRN PRN 07/08/19 12/30/21 12/29/21 08:00 Hi story 750 mg Amlodipine Besylate [Norvasc] 5 mg PO DAILY #30 07/09/19 12/30/21 12/30/21 08:00 Rx 5 mg Doxazosin Mesylate [Cardura Xl] 4 mg PO BID #60 07/09/19 12/30/21 12/30/21 08:00 Rx Keppra TAB 750 mg PO BID #60 10/25/21 12/30/21 12/30/21 08:00 Rx 750 mg Theophylline Anhydrous ER [Theodur] 300 mg PO ONCE 12/30/21 12/30/21 12/30/21 08:00 History Review of Systems Constitutional: weight loss, fatigue, weakness Ears, nose, mouth and throat: no ear pain, no ear discharge, no decreased hearing Cardiovascular: no chest pain, no orthopnea, no palpitations, no edema, no syncope Respiratory: no cough, no cough with sputum, no hemoptysis, no shortness of breath Gastrointestinal: no abdominal pain, no nausea, no vomiting, no diarrhea, no constipation Genitourinary Male: no hematuria, no flank pain, no urinary frequency, no urinary hesitancy, no nocturia Rectal: no pain, no incontinence, no bleeding Musculoskeletal: no neck pain, no shooting arm pain, no shooting leg pain Integumentary: no rash, no redness, no sores Neurological: no head injury, no paralysis, no numbness, no tingling, no seizures Psychiatric: no memory loss, no change in sleep habits, no sleep disturbances Endocrine: no cold intolerance, no heat intolerance, no polydipsia, no polyuria, no excessive sweating Hematologic/Lymphatic: no easy bruising, no easy bleeding Allergic/Immunologic: no allergic rhinitis, no wheezing Exam - Constitutional Vitals: Temp Pulse Resp BP Pulse Ox 98.1 F 106 H 20 145/84 99 12/30/21 11:36 12/30/21 16:59 12/30/21 16:59 12/30/21 16:59 12/30/21 16:59 General appearance: Present: mild distress - EENT Eyes: Present: PERRL, scleral icterus ENT: hearing intact, clear oral mucosa - Neck Neck: Present: supple, normal ROM - Respiratory Respiratory effort: normal Respiratory: bilateral: CTA - Cardiovascular Heart Sounds: Present: S1 & S2. Absent: rub, click - Extremities Extremities: pulses symmetrical, No edema Peripheral Pulses: within normal limits - Abdominal General gastrointestinal: Present: soft, non-tender, non-distended, normal bowel sounds Male genitourinary: Present: normal - Integumentary Integumentary: Present: warm, dry, jaundice - Musculoskeletal Musculoskeletal: generalized weakness - Psychiatric Psychiatric: appropriate mood/affect, intact judgment & insight - Neurologic Neurologic: CNII-XII intact, moves all extremities Results - Labs CBC & Chem 7: 12/30/21 11:46 12/30/21 11:46 Labs: Abnormal lab results 12/30/21 12/30/21 12/30/21 Range/Units 11:46 11:46 11:46 Hgb 11.2 L (11.8-15.2) gm/dl Hct 33.3 L (35.5-45.6) % RDW 16.7 H (13.2-15.2) % Lymph % (Auto) 6.5 L (13.4-35.0) % [place] % (Auto) 9.5 H (0.0-7.3) % Lymph # (Auto) 0.5 L (1.2-5.4) K/mm3 Seg Neutrophils % 83.0 H (40.0-70.0) % Carbon Dioxide 21 L (22-30) mmol/L Glucose 120 H (75-100) mg/dL Lactic Acid 2.20 H* (0.7-2.0) mmol/L Total Bilirubin 17.30 H (0.1-1.2) mg/dL AST 249 H (5-40) units/L ALT 291 H (7-56) units/L Alkaline Phosphatase 815 H (35-129) units/L Albumin 3.7 L (3.9-5) g/dL Lipase 63 H (13-60) units/L Urine WBC (Auto) (0.0-6.0) /HPF U Epithel Cells (Auto) (0-13.0) /HPF 12/30/21 Range/Units 13:01 Hgb (11.8-15.2) gm/dl Hct (35.5-45.6) % RDW (13.2-15.2) % Lymph % (Auto) (13.4-35.0) % [place] % (Auto) (0.0-7.3) % Lymph # (Auto) (1.2-5.4) K/mm3 Seg Neutrophils % (40.0-70.0) % Carbon Dioxide (22-30) mmol/L Glucose (75-100) mg/dL Lactic Acid (0.7-2.0) mmol/L Total Bilirubin (0.1-1.2) mg/dL AST (5-40) units/L ALT (7-56) units/L Alkaline Phosphatase (35-129) units/L Albumin (3.9-5) g/dL Lipase (13-60) units/L Urine WBC (Auto) 10.0 H (0.0-6.0) /HPF U Epithel Cells (Auto) 21.0 H (0-13.0) /HPF Assessment and Plan - Patient Problems (1) Hepatic cancer Current Visit: Yes Status: Acute Qualifiers: Liver malignancy type: unspecified liver malignancy Qualified Code(s): C22.9 - Malignant neoplasm of liver, not specified as primary or secondary Plan to address problem: CT scan abdomen pelvis. Patient found to have multiple liver lesions complicated by obstructive jaundice. Recommend transfer to facility with multidisciplinary cancer specialty team available. Patient will likely require surgical intervention from both GI as well as surgical oncology service. Patient counseled regarding prognosis. (2) Lung nodules Current Visit: Yes Status: Acute Plan to address problem: Suspect lung malignancy. Patient will likely require lung biopsy. Patient pending transfer to higher level of care. (3) Obstructive jaundice Current Visit: Yes Status: Acute Plan to address problem: GI team consulted in ED. Patient will likely require biliary stenting. Patient pending transfer to higher level of care. (4) Advance care planning Current Visit: No Status: Acute Plan to address problem: Disease education conducted, care plan discussed, diagnoses discussed, prognosis discussed, patient is full code. Patient and acknowledged understanding and agreement with care plan, +30 minutes. (5) Preventative health care Current Visit: Yes Status: Acute Plan to address problem: Patient counseled regarding home safety measures, multidisciplinary approach to cancer treatment, +30 minutes.
[2021-12-30] MEDS ORDERED: PIPERACILLIN/TAZOBACTAM 3.375 3.375 GM/50 ML BAG IV ONE (18:57)
[2021-12-30] MEDS ORDERED: MORPHINE 2 MG/1 ML INJ IV PRN (19:45)
[2021-12-30] MEDS ORDERED: IBUPROFEN 600 MG TAB PO PRN (19:45)
[2021-12-30] MEDS ORDERED: HYDROmorphone 0.5 MG/0.5 ML INJ IV PRN ×2 (19:45→19:51)
[2021-12-30] MEDS ORDERED: ALBUTEROL 2.5 MG/3 ML NEBU IH PRN (19:45)
[2021-12-30] MEDS ORDERED: ONDANSETRON 4 MG/2 ML INJ IV PRN ×2 (19:45→19:51)
[2021-12-30] MEDS ORDERED: oxyCODONE /ACETAMINOPHEN 5-325MG TAB PO PRN (19:51)
[2021-12-30] MEDS ORDERED: ACETAMINOPHEN 325 MG TAB PO PRN (19:51)
--- NOTE | 2021-12-30 19:53 | History and Physical Report ---
History of Present Illness Chief complaint: I feel weak History of present illness: 76 YO Male with HTN, Mild Intermittent Asthma, Seizure Disorder presents to ED for evaluation. Patient reports "I am just weak". Patient states he has experienced generalized weakness over the past 3 weeks with progressively worsening symptoms over the same timeframe. Patient also acknowledges unintentional 15 pound weight loss over the past week. Patient was seen and evaluated by his primary care physician and treated as outpatient for bronchitis without improvement in symptoms. Patient subsequently failed outpatient therap y. Patient transported to [facility] via private vehicle for further care and evaluation of the aforementioned symptoms. The patient was seen and evaluated in the emergency department. All lab and imaging studies reviewed. Patient underwent CT scan of the abdomen and pelvis and was found to have lung nodules with concomitant metastatic liver lesions consistent with hepatocellular carcinoma versus lung cancer with metastatic spread to the liver. Patient also found to have obstructive jaundice. Patient denies fever, chills, chest pain, palpitation, adductive cough, skin rash, recent contact, or known exposure to COVID-19. No prior admission for review. All medication listed at time of admission has been reconciled. Advanced care planning conducted in ED. Past History Past Medical History: hypertension, seizures Past Surgical History: cataract removal, Other (Shoulder surgery) Social history: , lives with family Family history: hypertension Medications and Allergies Allergies Allergy/AdvReac Type Severity Reaction Status Date / Time No Known Allergies Allergy Verified 12/30/21 12:49 Home Medications Medication Instructions Recorded Confirmed Last Taken Type Albuterol Sulfate 1 inh INHALATION PRN PRN 07/08/19 12/30/21 12/29/21 08:00 History 750 mg Amlodipine Besylate [Norvasc] 5 mg PO DAILY #30 07/09/19 12/30/21 12/30/21 08:00 Rx 5 mg Doxazosin Mesylate [Cardura Xl] 4 mg PO BID #60 07/09/19 12/30/21 12/30/21 08:00 Rx Keppra TAB 750 mg PO BID #60 10/25/21 12/30/21 12/30/21 08:00 Rx 750 mg Theophylline Anhydrous ER [Theodur] 300 mg PO ONCE 12/30/21 12/30/21 12/30/21 08:00 History Active Meds: Active Medications Acetaminophen (Acetaminophen 325 Mg Tab) 650 mg PO Q4H PRN PRN Reason: Pain MILD(1-3)/Fever >100.5/[place] Albuterol (Albuterol 2.5 Mg/3 Ml Nebu) 2.5 mg IH Q4HRT PRN PRN Reason: Shortness Of Breath Amlodipine Besylate (Amlodipine 5 Mg Tab) 5 mg PO DAILY JULES Hydromorphone HCl (Hydromorphone 0.5 Mg/0.5 Ml Inj) 0.5 mg IV Q3H PRN PRN Reason: Pain , Severe (7-10) Hydromorphone HCl (Hydromorphone 0.5 Mg/0.5 Ml Inj) 0.5 mg IV Q3H PRN PRN Reason: Pain , Severe (7-10) Ibuprofen (Ibuprofen 600 Mg Tab) 600 mg PO Q6H PRN PRN Reason: Pain, Mild (1-3) Miscellaneous Medication (Doxazosin Mesylate [Cardura Xl]) 4 mg PO BID [facility] Miscellaneous Medication (Keppra Tab) 750 mg PO BID [facility] Morphine Sulfate (Morphine 2 Mg/1 Ml Inj) 2 mg IV Q4H PRN PRN Reason: Pain, Moderate (4-6) Ondansetron HCl (Ondansetron 4 Mg/2 Ml Inj) 4 mg IV Q8H PRN PRN Reason: Nausea And Vomiting Ondansetron HCl (Ondansetron 4 Mg/2 Ml Inj) 4 mg IV Q8H PRN PRN Reason: Nausea And Vomiting Oxycodone/Acetaminophen (Oxycodone /Acetaminophen 5-325mg Tab) 1 tab PO Q6H PRN PRN Reason: Pain, Moderate (4-6) Sodium Chloride (Sodium Chloride 0.9% 10 Ml Flush Syringe) 10 ml IV BID JULES Sodium Chloride (Sodium Chloride 0.9% 10 Ml Flush Syringe) 10 ml IV PRN PRN PRN Reason: LINE FLUSH Sodium Chloride (Sodium Chloride 0.9% 10 Ml Flush Syringe) 10 ml IV BID JULES Sodium Chloride (Sodium Chloride 0.9% 10 Ml Flush Syringe) 10 ml IV PRN PRN PRN Reason: LINE FLUSH Review of Systems Constitutional: fatigue, weakness Ears, nose, mouth and throat: no ear pain, no tinnitis, no decreased hearing, no nose pain Cardiovascular: no chest pain, no edema, no syncope Respiratory: no cough, no cough with sputum, no shortness of breath Gastrointestinal: no abdominal pain, no vomiting, no constipation, no change in bowel habits, no hematemesis Genitourinary Male: no hematuria, no flank pain, no nocturia, no incontinence Rectal: no pain, no incontinence, no bleeding Musculoskeletal: no neck pain, no shooting arm pain, no arm numbness/tingling Integumentary: no rash, no pruritis, no sores Neurological: no head injury, no transient paralysis, no parathesias, no nu mbness, no seizures, no syncope, no tremors Psychiatric: no anxiety, no sleep disturbances, no hypersomnia, no change in appetite, no suicidal ideation Endocrine: no cold intolerance, no excessive thirst, no polydipsia, no flushing, no weight change Hematologic/Lymphatic: no easy bleeding, no lymphadenopathy Allergic/Immunologic: no urticaria, no allergic rhinitis, no wheezing, no persistent infections, no angioedema Exam - Constitutional Vitals: Temp Pulse Resp BP Pulse Ox 98.1 F 106 H 20 145/84 99 12/30/21 11:36 12/30/21 16:59 12/30/21 16:59 12/30/21 16:59 12/30/21 16:59 General appearance: Present: mild distress - EENT Eyes: Present: scleral icterus ENT: hearing intact, clear oral mucosa - Neck Neck: Present: supple, normal ROM - Respiratory Respiratory effort: normal Respiratory: bilateral: CTA - Cardiovascular Heart Sounds: Present: S1 & S2. Absent: rub, click - Extremities Extremities: pulses symmetrical, No edema Peripheral Pulses: within normal limits - Abdominal General gastrointestinal: Present: soft, non-tender, non-distended, normal bowel sounds Male genitourinary: Present: normal - Integumentary Integumentary: Present: clear, dry, jaundice - Musculoskeletal Musculoskeletal: generalized weakness - Psychiatric Psychiatric: appropriate mood/affect, intact judgment & insight - Neurologic Neurologic: CNII-XII intact, moves all extremities HEART Score - HEART Score Troponin: Troponin T < 0.010 ng/mL (0.00-0.029) 12/30/21 11:46 Results - Labs CBC & Chem 7: 12/30/21 11:46 12/30/21 11:46 Labs: Abnormal lab results 12/30/21 12/30/21 12/30/21 Range/Units 11:46 11:46 11:46 Hgb 11.2 L (11.8-15.2) gm/dl Hct 33.3 L (35.5-45.6) % RDW 16.7 H (13.2-15.2) % Lymph % (Auto) 6.5 L (13.4-35.0) % [place] % (Auto) 9.5 H (0.0-7.3) % Lymph # (Auto) 0.5 L (1.2-5.4) K/mm3 Seg Neutrophils % 83.0 H (40.0-70.0) % Carbon Dioxide 21 L (22-30) mmol/L Glucose 120 H (75-100) mg/dL Lactic Acid 2.20 H* (0.7-2.0) mmol/L Total Bilirubin 17.30 H (0.1-1.2) mg/dL AST 249 H (5-40) units/L ALT 291 H (7-56) units/L Alkaline Phosphatase 815 H (35-129) units/L Albumin 3.7 L (3.9-5) g/dL Lipase 63 H (13-60) units/L Urine WBC (Auto) (0.0-6.0) /HPF U Epithel Cells (Auto) (0-13.0) /HPF 12/30/21 Range/Units 13:01 Hgb (11.8-15.2) gm/dl Hct (35.5-45.6) % RDW (13.2-15.2) % Lymph % (Auto) (13.4-35.0) % [place] % (Auto) (0.0-7.3) % Lymph # (Auto) (1.2-5.4) K/mm3 Seg Neutrophils % (40.0-70.0) % Carbon Dioxide (22-30) mmol/L Glucose (75-100) mg/dL Lactic Acid (0.7-2.0) mmol/L Total Bilirubin (0.1-1.2) mg/dL AST (5-40) units/L ALT (7-56) units/L Alkaline Phosphatase (35-129) units/L Albumin (3.9-5) g/dL Lipase (13-60) units/L Urine WBC (Auto) 10.0 H (0.0-6.0) /HPF U Epithel Cells (Auto) 21.0 H (0-13.0) /HPF Assessment and Plan - Patient Problems (1) Hepatic cancer Current Visit: Yes Status: Acute Qualifiers: Liver malignancy type: unspecified liver malignancy Qualified Code(s): C22.9 - Malignant neoplasm of liver, not specified as primary or secondary Plan to address problem: CT scan abdomen pelvis. Patient found to have multiple liver lesions complicated by obstructive jaundice. Recommend transfer to facility with multidisciplinary cancer specialty team available. Patient will likely require surgical intervention from both GI as well as surgical oncology service. Jerry palacios counseled regarding prognosis. Patient was unable to be transferred to outside facility for further care. GI team agreed to initiate treatment at this institution. GI team consulted in ED. Patient pending further care in a.m. as per GI team. (2) Lung nodules Current Visit: Yes Status: Acute Plan to address problem: Suspect lung malignancy. Patient will likely require lung biopsy. Patient pend ing transfer to higher level of care. (3) Obstructive jaundice Current Visit: Yes Status: Acute Plan to address problem: GI team consulted in ED. Patient will likely require biliary stenting. Patient pending transfer to higher level of care. (4) Advance care planning Current Visit: No Status: Acute Plan to address problem: Disease education conducted, care plan discussed, diagnoses discussed, prognosis discussed, patient is full code. Patient and acknowledged understanding and agreement with care plan, +30 minutes. (5) Preventative health care Current Visit: Yes Status: Acute Plan to address problem: Patient counseled regarding home safety measures, multidisciplinary approach to cancer treatment, +30 minutes.
--- NOTE | 2021-12-30 20:56 | Gastroenterology Consultation ---
History of Present Illness - Reason for Consult Consult date: 12/30/21 jaundice Requesting physician: KESHIA FORD - History of Present Illness This is a 76-year-old male with history of asthma seizure disorder hypertension presenting to the ED for weakness and tachycardia. GI consulted for new onset jaundice. Patient reports having progressive shortness of breath and weakness for the past 3 weeks. He was evaluated by his primary care doctor and pulmonary doctor for possible bronchitis reports having a chest x-ray and was plan for CT of his chest in the next week or 2. He was referred to cardiology and had first visit this morning and noted to have tachycardia with heart rates into the 130s. He was sent to the ER because of tachycardia. In the ER his evaluation showed elevated LFTs with T bili at 10. CT of the abdomen and pelvis showed multiple l iver lesions concerning for metastatic liver disease versus cholangiocarcinoma. Patient denies any abdominal pain nausea vomiting or bleeding symptoms. He does note about 14 to 15 pound weight loss for the past week. His states that patient does not eat much due to early satiety and bloating. Last colonoscopy normal about 10 years ago. No prior upper endoscopy. Does not use any anticoagulation. No prior history of abdominal surgery. Medication list reviewed. Past History Past Medical History: hypertension, seizures Past Surgical History: cataract removal, Other (Shoulder surgery) Social history: , lives with family Family history: hypertension Medications and Allergies Allergies Allergy/AdvReac Type Severity Reaction Status Date / Time No Known Allergies Allergy Verified 12/30/21 12:49 Home Medications Medication Instructions Recorded Confirmed Last Taken Type Albuterol Sulfate 1 inh INHALATION PRN PRN 07/08/19 12/30/21 12/29/21 08:00 History 750 mg Amlodipine Besylate [Norvasc] 5 mg PO DAILY #30 07/09/19 12/30/21 12/30/21 08:00 Rx 5 mg Doxazosin Mesylate [Cardura Xl] 4 mg PO BID #60 07/09/19 12/30/21 12/30/21 08:00 Rx Keppra TAB 750 mg PO BID #60 10/25/21 12/30/21 12/30/21 08:00 Rx 750 mg Theophylline Anhydrous ER [Theodur] 300 mg PO ONCE 12/30/21 12/30/21 12/30/21 08:00 History Active Meds: Active Medications Acetaminophen (Acetaminophen 325 Mg Tab) 650 mg PO Q4H PRN PRN Reason: Pain MILD(1-3)/Fever >100.5/[place] Albuterol (Albuterol 2.5 Mg/3 Ml Nebu) 2.5 mg IH Q4HRT PRN PRN Reason: Shortness Of Breath Amlodipine Besylate (Amlodipine 5 Mg Tab) 5 mg PO DAILY JULES Hydromorphone HCl (Hydromorphone 0.5 Mg/0.5 Ml Inj) 0.5 mg IV Q3H PRN PRN Reason: Pain , Severe (7-10) Ibuprofen (Ibuprofen 600 Mg Tab) 600 mg PO Q6H PRN PRN Reason: Pain, Mild (1-3) Levetiracetam (Levetiracetam 500 Mg/5 Ml Oral Liqd) 750 mg PO BID JULES Miscellaneous Medication (Doxazosin Mesylate [Cardura Xl]) 4 mg PO BID JULES Morphine Sulfate (Morphine 2 Mg/1 Ml Inj) 2 mg IV Q4H PRN PRN Reason: Pain, Moderate (4-6) Ondansetron HCl (Ondansetron 4 Mg/2 Ml Inj) 4 mg IV Q8H PRN PRN Reason: Nausea And Vomiting Oxycodone/Acetaminophen (Oxycodone /Acetaminophen 5-325mg Tab) 1 tab PO Q6H PRN PRN Reason: Pain, Moderate (4-6) Sodium Chloride (Sodium Chloride 0.9% 10 Ml Flush Syringe) 10 ml IV BID JULES Sodium Chloride (Sodium Chloride 0.9% 10 Ml Flush Syringe) 10 ml IV PRN PRN PRN Reason: LINE FLUSH Sodium Chloride (Sodium Chloride 0.9% 10 Ml Flush Syringe) 10 ml IV BID JULES Sodium Chloride (Sodium Chloride 0.9% 10 Ml Flush Syringe) 10 ml IV PRN PRN PRN Reason: LINE FLUSH Theophylline (Theophylline Anhydrous Er 300 Mg Tab) 300 mg PO ONCE ONE Stop: 12/30/21 21:01 Review of Systems - Review of Systems All systems: negative Constitutional: weight loss, weakness, poor appetite, no fever Ears, Nose, Throat: no difficulty swallowing Cardiovascular: palpitations, no chest pain Gastrointestinal: constipation, no abdominal pain, no nausea, no vomiting, no diarrhea Musculoskeletal: no gait dysfunction Integumentary: no rash Neurological: weakness Psychiatric: anxiety Endocrine: no cold intolerance Hematologic/Lymphatic: no easy bruising Allergic/Immunologic: no wheezing Exam - Constitutional Vital Signs: Temp Pulse Resp BP Pulse Ox 98.1 F 106 H 20 145/84 99 12/30/21 11:36 12/30/21 16:59 12/30/21 16:59 12/30/21 16:59 12/30/21 16:59 General appearance: no acute distress - EENT Eyes: EOM intact, scleral icterus ENT: hearing intact - Respiratory Respiratory effort: normal - Cardiovascular Rhythm: regular Heart Sounds: Present: S1 & S2 - Gastrointestinal General gastrointestinal: Present: soft, non-tender, distended - Integumentary Integumentary: Present: warm, jaundice - Neurologic Neurological: alert and oriented x3 - Psychiatric Psychiatric: appropriate mood/affect - Labs CBC & Chem 7: 12/30/21 11:46 12/30/21 11:46 Lab Results: Laboratory Results - last 24 hr 12/30/21 12/30/21 12/30/21 11:46 11:46 11:46 WBC 8.4 RBC 3.90 Hgb 11.2 L Hct 33.3 L MCV 85 MCH 29 MCHC 34 RDW 16.7 H Plt Count 195 Lymph % (Auto) 6.5 L [place] % (Auto) 9.5 H Eos % (Auto) 0.2 Baso % (Auto) 0.8 Lymph # (Auto) 0.5 L [place] # (Auto) 0.8 Eos # (Auto) 0.0 Baso # (Auto) 0.1 Seg Neutrophils % 83.0 H Seg Neutrophils # 7.0 PT 14.3 INR 1.00 APTT 27.9 Sodium Potassium Chloride Carbon Dioxide Anion Gap BUN Creatinine Estimated GFR BUN/Creatinine Ratio Glucose Lactic Acid Calcium Total Bilirubin AST ALT Alkaline Phosphatase Troponin T NT-Pro-B Natriuret Pep Total Protein Albumin Albumin/Globulin Ratio Lipase TSH Urine Color Urine Turbidity Urine pH Ur Specific [place] Urine Protein Urine Glucose (UA) Urine Ketones Urine Blood Urine Nitrite Urine Bilirubin Urine Ictotest Urine Urobilinogen Ur Leukocyte Esterase Urine WBC (Auto) Urine RBC (Auto) U Epithel Cells (Auto) Urine Bacteria (Auto) Uric Acid Crystals Amorphous Crystals Hyaline Casts Urine Opiates Screen Urine Methadone Screen Ur Barbiturates Screen Ur Phencyclidine Scrn Ur Amphetamines Screen U Benzodiazepines Scrn Urine Cocaine Screen U Marijuana (THC) Screen Drugs of Abuse Note Plasma/Serum Alcohol < 0.01 Hepatitis A IgM Ab Hep Bs Antigen Hep B Core IgM Ab Hepatitis C Antibody 12/30/21 12/30/21 12/30/21 11:46 11:46 12:22 WBC RBC Hgb Hct MCV MCH MCHC RDW Plt Count Lymph % (Auto) [place] % (Auto) Eos % (Auto) Baso % (Auto) Lymph # (Auto) [place] # (Auto) Eos # (Auto) Baso # (Auto) Seg Neutrophils % Seg Neutrophils # PT INR APTT Sodium 140 Potassium 3.8 Chloride 102.6 Carbon Dioxide 21 L Anion Gap 20 BUN 13 Creatinine 0.9 Estimated GFR > 60 BUN/Creatinine Ratio 14 Glucose 120 H Lactic Acid 2.20 H* Calcium 9.8 Total Bilirubin 17.30 H AST 249 H ALT 291 H Alkaline Phosphatase 815 H Troponin T < 0.010 NT-Pro-B Natriuret Pep 135.0 Total Protein 6.8 Albumin 3.7 L Albumin/Globulin Ratio 1.2 Lipase 63 H TSH 2.400 Urine Color Urine Turbidity Urine pH Ur Specific [place] Urine Protein Urine Glucose (UA) Urine Ketones Urine Blood Urine Nitrite Urine Bilirubin Urine Ictotest Urine Urobilinogen Ur Leukocyte Esterase Urine WBC (Auto) Urine RBC (Auto) U Epithel Cells (Auto) Urine Bacteria (Auto) Uric Acid Crystals Amorphous Crystals Hyaline Casts Urine Opiates Screen Urine Methadone Screen Ur Barbiturates Screen Ur Phencyclidine Scrn Ur Amphetamines Screen U Benzodiazepines Scrn Urine Cocaine Screen U Marijuana (THC) Screen Drugs of Abuse Note Plasma/Serum Alcohol Hepatitis A IgM Ab Hep Bs Antigen Hep B Core IgM Ab Hepatitis C Antibody 12/30/21 12/30/21 12/30/21 12:25 13:01 13:01 WBC RBC Hgb Hct MCV MCH MCHC RDW Plt Count Lymph % (Auto) [place] % (Auto) Eos % (Auto) Baso % (Auto) Lymph # (Auto) [place] # (Auto) Eos # (Auto) Baso # (Auto) Seg Neutrophils % Seg Neutrophils # PT INR APTT Sodium Potassium Chloride Carbon Dioxide Anion Gap BUN Creatinine Estimated GFR BUN/Creatinine Ratio Glucose Lactic Acid Calcium Total Bilirubin AST ALT Alkaline Phosphatase Troponin T NT-Pro-B Natriuret Pep Total Protein Albumin Albumin/Globulin Ratio Lipase TSH Urine Color Bee Urine Turbidity Clear Urine pH 6.0 Ur Specific [place] 1.015 Urine Protein 100 mg/dl Urine Glucose (UA) 50 Urine Ketones Neg Urine Blood Neg Urine Nitrite Neg Urine Bilirubin Mod Urine Ictotest Positive Urine Urobilinogen 4.0 Ur Leukocyte Esterase Tr Urine WBC (Auto) 10.0 H Urine RBC (Auto) 17.0 U Epithel Cells (Auto) 21.0 H Urine Bacteria (Auto) 1+ Uric Acid Crystals 1+ Amorphous Crystals 1+ Hyaline Casts 14 Urine Opiates Screen Negative Urine Methadone Screen Negative Ur Barbiturates Screen Negative Ur Phencyclidine Scrn Negative Ur Amphetamines Screen Negative U Benzodiazepines Scrn Negative Urine Cocaine Screen Negative U Marijuana (THC) Screen Negative Drugs of Abuse Note Disclamer Plasma/Serum Alcohol Hepatitis A IgM Ab Non-reactive Hep Bs Antigen Non-reactive Hep B Core IgM Ab Non-reactive Hepatitis C Antibody Non-reactive 12/30/21 13:51 WBC RBC Hgb Hct MCV MCH MCHC RDW Plt Count Lymph % (Auto) [place] % (Auto) Eos % (Auto) Baso % (Auto) Lymph # (Auto) [place] # (Auto) Eos # (Auto) Baso # (Auto) Seg Neutrophils % Seg Neutrophils # PT INR APTT Sodium Potassium Chloride Carbon Dioxide Anion Gap BUN Creatinine Estimated GFR BUN/Creatinine Ratio Glucose Lactic Acid 1.50 Calcium Total Bilirubin AST ALT Alkaline Phosphatase Troponin T NT-Pro-B Natriuret Pep Total Protein Albumin Albumin/Globulin Ratio Lipase TSH Urine Color Urine Turbidity Urine pH Ur Specific [place] Urine Protein Urine Glucose (UA) Urine Ketones Urine Blood Urine Nitrite Urine Bilirubin Urine Ictotest Urine Urobilinogen Ur Leukocyte Esterase Urine WBC (Auto) Urine RBC (Auto) U Epithel Cells (Auto) Urine Bacteria (Auto) Uric Acid Crystals Amorphous Crystals Hyaline Casts Urine Opiates Screen Urine Methadone Screen Ur Barbiturates Screen Ur Phencyclidine Scrn Ur Amphetamines Screen U Benzodiazepines Scrn Urine Cocaine Screen U Marijuana (THC) Screen Drugs of Abuse Note Plasma/Serum Alcohol Hepatitis A IgM Ab Hep Bs Antigen Hep B Core IgM Ab Hepatitis C Antibody - Imaging CT Scan: report reviewed Ultrasound: report reviewed Assessment and Plan # Obstructive jaundice - CT a/p showing numerous hepatic lesions including masses in the region of the logan hepatis obscuring biliary ducts and resulting in distention of the gallbladder. Differentials including metastatic disease as well as cholangiocarcinoma. Also notes prominence of the GE junction with indistinct margins of the gastric wall in the region of the GE junction. -Currently no signs of ascending cholangitis. Rec - recommend MRCP - monitor LFTs and INR - empiric antibiotics. - will follow up on MRCP results and decide on ERCP - would benefit from transfer to tertiary care for EUS/ERCP for definitive diagnosis and surgical oncology. Attempts were made in the ED with calls made to [place] and [facility] but no beds available. -Updated family by bedside. -Dr. Juan will be rounding tomorrow. - Patient Problems (1) Obstructive jaundice Current Visit: Yes Status: Acute
[2021-12-30] MEDS ORDERED: THEOPHYLLINE ANHYDROUS ER 300 MG TAB PO ONE (21:00)
[2021-12-30] MEDS ORDERED: DOXAZOSIN MESYLATE 4 MG PO SCH (22:00)
[2021-12-30] MEDS: levETIRAcetam 500 MG/5 ML ORAL LIQD PO SCH (22:20)
[2021-12-31 04:54] LABS: Basophils % (Auto) 0.5 % (0.0-1.8); Eosinophils # (Auto) 0.1 K/mm3 (0.0-0.4); Eosinophils % (Auto) 0.6 % (0.0-4.3); Hemoglobin 10.1 gm/dl (11.8-15.2); Lymphocytes # (Auto) 1.1 K/mm3 (1.2-5.4); Lymphocytes % (Auto) 11.7 % (13.4-35.0); Mean Corpuscular HGB Conc 35 % (32-34); Mean Corpuscular Volume 85 fl (84-94); Monocytes # (Auto) 0.9 K/mm3 (0.0-0.8); Platelet Count 184 K/mm3 (140-440); Red Cell Distribution Width 17.3 % (13.2-15.2)
[2021-12-31 05:16] LABS: Alanine Aminotransferase 271 units/L (7-56); Albumin 3.5 g/dL (3.9-5); Blood Urea Nitrogen 11 mg/dL (9-20); Calcium 9.3 mg/dL (8.4-10.2); Hemolysis Index 1
[2021-12-31 05:25] LABS: BUN/Creatinine Ratio 18
[2021-12-31] MEDS: DOXAZOSIN 4 MG TAB PO SCH ×3 (06:16→21:54)
[2021-12-31] MEDS: levETIRAcetam 500 MG/5 ML ORAL LIQD PO SCH ×2 (09:05→21:54)
[2021-12-31] MEDS: amLODIPine 5 MG TAB PO SCH (09:14)
--- NOTE | 2021-12-31 11:10 | Gastroenterology Progress Note ---
Assessment and Plan 1. GI: painless jaundice with concern for malignancy - awaiting mrcp - check ca 19-9 - consider ercp based on mrcp results - follow labs - will follow Subjective Date of service: 12/31/21 Interval history: - no complaints overnight, awaiting mrcp Objective - Constitutional Vitals: Temp Pulse Resp BP Pulse Ox 98.6 F 102 H 18 134/86 100 12/31/21 05:32 12/31/21 05:32 12/31/21 05:32 12/31/21 05:32 12/31/21 09:51 General appearance: no acute distress - EENT Eyes: scleral icterus - Respiratory Respiratory: bilateral: CTA - Cardiovascular Rhythm: regular Heart Sounds: Present: S1 & S2 - Gastrointestinal General gastrointestinal: Present: soft, non-tender, non-distended - Labs CBC & Chem 7: 12/31/21 04:05 12/31/21 04:05 Labs: Laboratory Results - last 24 hr 12/30/21 12/30/21 12/30/21 11:46 11:46 11:46 WBC 8.4 RBC 3.90 Hgb 11.2 L Hct 33.3 L MCV 85 MCH 29 MCHC 34 RDW 16.7 H Plt Count 195 Lymph % (Auto) 6.5 L [place] % (Auto) 9.5 H Eos % (Auto) 0.2 Baso % (Auto) 0.8 Lymph # (Auto) 0.5 L [place] # (Auto) 0.8 Eos # (Auto) 0.0 Baso # (Auto) 0.1 Seg Neutrophils % 83.0 H Seg Neutrophils # 7.0 PT 14.3 INR 1.00 APTT 27.9 Sodium Potassium Chloride Carbon Dioxide Anion Gap BUN Creatinine Estimated GFR BUN/Creatinine Ratio Glucose Lactic Acid Calcium Total Bilirubin AST ALT Alkaline Phosphatase Troponin T NT-Pro-B Natriuret Pep Total Protein Albumin Albumin/Globulin Ratio Lipase TSH Urine Color Urine Turbidity Urine pH Ur Specific [place] Urine Protein Urine Glucose (UA) Urine Ketones Urine Blood Urine Nitrite Urine Bilirubin Urine Ictotest Urine Urobilinogen Ur Leukocyte Esterase Urine WBC (Auto) Urine RBC (Auto) U Epithel Cells (Auto) Urine Bacteria (Auto) Uric Acid Crystals Amorphous Crystals Hyaline Casts Urine Opiates Screen Urine Methadone Screen Ur Barbiturates Screen Ur Phencyclidine Scrn Ur Amphetamines Screen U Benzodiazepines Scrn Urine Cocaine Screen U Marijuana (THC) Screen Drugs of Abuse Note Plasma/Serum Alcohol < 0.01 Hepatitis A IgM Ab Hep Bs Antigen Hep B Core IgM Ab Hepatitis C Antibody 12/30/21 12/30/21 12/30/21 11:46 11:46 12:22 WBC RBC Hgb Hct MCV MCH MCHC RDW Plt Count Lymph % (Auto) [place] % (Auto) Eos % (Auto) Baso % (Auto) Lymph # (Auto) [place] # (Auto) Eos # (Auto) Baso # (Auto) Seg Neutrophils % Seg Neutrophils # PT INR APTT Sodium 140 Potassium 3.8 Chloride 102.6 Carbon Dioxide 21 L Anion Gap 20 BUN 13 Creatinine 0.9 Estimated GFR > 60 BUN/Creatinine Ratio 14 Glucose 120 H Lactic Acid 2.20 H* Calcium 9.8 Total Bilirubin 17.30 H AST 249 H ALT 291 H Alkaline Phosphatase 815 H Troponin T < 0.010 NT-Pro-B Natriuret Pep 135.0 Total Protein 6.8 Albumin 3.7 L Albumin/Globulin Ratio 1.2 Lipase 63 H TSH 2.400 Urine Color Urine Turbidity Urine pH Ur Specific [place] Urine Protein Urine Glucose (UA) Urine Ketones Urine Blood Urine Nitrite Urine Bilirubin Urine Ictotest Urine Urobilinogen Ur Leukocyte Esterase Urine WBC (Auto) Urine RBC (Auto) U Epithel Cells (Auto) Urine Bacteria (Auto) Uric Acid Crystals Amorphous Crystals Hyaline Casts Urine Opiates Screen Urine Methadone Screen Ur Barbiturates Screen Ur Phencyclidine Scrn Ur Amphetamines Screen U Benzodiazepines Scrn Urine Cocaine Screen U Marijuana (THC) Screen Drugs of Abuse Note Plasma/Serum Alcohol Hepatitis A IgM Ab Hep Bs Antigen Hep B Core IgM Ab Hepatitis C Antibody 12/30/21 12/30/21 12/30/21 12:25 13:01 13:01 WBC RBC Hgb Hct MCV MCH MCHC RDW Plt Count Lymph % (Auto) [place] % (Auto) Eos % (Auto) Baso % (Auto) Lymph # (Auto) [place] # (Auto) Eos # (Auto) Baso # (Auto) Seg Neutrophils % Seg Neutrophils # PT INR APTT Sodium Potassium Chloride Carbon Dioxide Anion Gap BUN Creatinine Estimated GFR BUN/Creatinine Ratio Glucose Lactic Acid Calcium Total Bilirubin AST ALT Alkaline Phosphatase Troponin T NT-Pro-B Natriuret Pep Total Protein Albumin Albumin/Globulin Ratio Lipase TSH Urine Color Bee Urine Turbidity Clear Urine pH 6.0 Ur Specific [place] 1.015 Urine Protein 100 mg/dl Urine Glucose (UA) 50 Urine Ketones Neg Urine Blood Neg Urine Nitrite Neg Urine Bilirubin Mod Urine Ictotest Positive Urine Urobilinogen 4.0 Ur Leukocyte Esterase Tr Urine WBC (Auto) 10.0 H Urine RBC (Auto) 17.0 U Epithel Cells (Auto) 21.0 H Urine Bacteria (Auto) 1+ Uric Acid Crystals 1+ Amorphous Crystals 1+ Hyaline Casts 14 Urine Opiates Screen Negative Urine Methadone Screen Negative Ur Barbiturates Screen Negative Ur Phencyclidine Scrn Negative Ur Amphetamines Screen Negative U Benzodiazepines Scrn Negative Urine Cocaine Screen Negative U Marijuana (THC) Screen Negative Drugs of Abuse Note Disclamer Plasma/Serum Alcohol Hepatitis A IgM Ab Non-reactive Hep Bs Antigen Non-reactive Hep B Core IgM Ab Non-reactive Hepatitis C Antibody Non-reactive 12/30/21 12/31/21 12/31/21 13:51 04:05 04:05 WBC 9.1 RBC 3.40 L Hgb 10.1 L Hct 29.0 L MCV 85 MCH 30 MCHC 35 H RDW 17.3 H Plt Count 184 Lymph % (Auto) 11.7 L [place] % (Auto) 10.0 H Eos % (Auto) 0.6 Baso % (Auto) 0.5 Lymph # (Auto) 1.1 L [place] # (Auto) 0.9 H Eos # (Auto) 0.1 Baso # (Auto) 0.0 Seg Neutrophils % 77.2 H Seg Neutrophils # 7.1 PT INR APTT Sodium 142 Potassium 3.6 Chloride 105.9 Carbon Dioxide 21 L Anion Gap 19 BUN 11 Creatinine 0.6 L Estimated GFR > 60 BUN/Creatinine Ratio 18 Glucose 111 H Lactic Acid 1.50 Calcium 9.3 Total Bilirubin 19.50 H AST 243 H ALT 271 H Alkaline Phosphatase 792 H Troponin T NT-Pro-B Natriuret Pep Total Protein 6.5 Albumin 3.5 L Albumin/Globulin Ratio 1.2 Lipase TSH Urine Color Urine Turbidity Urine pH Ur Specific [place] Urine Protein Urine Glucose (UA) Urine Ketones Urine Blood Urine Nitrite Urine Bilirubin Urine Ictotest Urine Urobilinogen Ur Leukocyte Esterase Urine WBC (Auto) Urine RBC (Auto) U Epithel Cells (Auto) Urine Bacteria (Auto) Uric Acid Crystals Amorphous Crystals Hyaline Casts Urine Opiates Screen Urine Methadone Screen Ur Barbiturates Screen Ur Phencyclidine Scrn Ur Amphetamines Screen U Benzodiazepines Scrn Urine Cocaine Screen U Marijuana (THC) Screen Drugs of Abuse Note Plasma/Serum Alcohol Hepatitis A IgM Ab Hep Bs Antigen Hep B Core IgM Ab Hepatitis C Antibody
--- NOTE | 2021-12-31 13:19 | Progress Note ---
Assessment and Plan Assessment and Plan - Patient Problems (1) Hepatic cancer Current Visit: Yes Status: Acute Qualifiers: Liver malignancy type: unspecified liver malignancy Qualified Code(s): C 22.9 - Malignant neoplasm of liver, not specified as primary or secondary Plan to address problem: CT scan abdomen pelvis. Patient found to have multiple liver lesions co mplicated by obstructive jaundice. Recommend transfer to facility with multidisciplinary cancer specialty team available. Patient will likely require surgical intervention from both GI as well as surgical oncology service. Patient counseled regarding prognosis. Patient was unable to be transferred to outside facility for further care. GI team agreed to initiate treatment at this institution. GI team consulted in ED. Patient pending further care in a.m. as per GI team. Due for MRCP tomorrow (2) Lung nodules Current Visit: Yes Status: Acute Plan to address problem: Suspect lung malignancy. Patient will likely require lung biopsy. Patient pending transfer to higher level of care. (3) Obstructive jaundice Current Visit: Yes Status: Acute Plan to address problem: GI team consulted in ED. Patient will likely require biliary stenting. Patient pending transfer to higher level of care. (4) Advance care planning Current Visit: No Status: Acute Plan to address problem: Disease education conducted, care plan discussed, diagnoses discussed, prognosis discussed, patient is full code. Patient and acknowledged understanding and agreement with care plan, +30 minutes. (5) Preventative health care Current Visit: Yes Status: Acute Plan to address problem: Patient counseled regarding home safety measures, multidisciplinary approach to cancer treatment, +30 minutes. Subjective Date of service: 12/31/21 Interval history: 76 YO Male with HTN, Mild Intermittent Asthma, Seizure Disorder presents to ED for evaluation. Patient reports "I am just weak". Patient states he has experienced generalized weakness over the past 3 weeks with progressively worsening symptoms over the same timeframe. Patient also acknowledges unintentional 15 pound weight loss over the past week. Patient was seen and evaluated by his primary care physician and treated as outpatient for bronchitis without improvement in symptoms. Patient subsequently failed outpatient therapy. Patient transported to [facility] via private vehicle for further care and ev aluation of the aforementioned symptoms. The patient was seen and evaluated in the emergency department. All lab and imaging studies reviewed. Patient underwent CT scan of the abdomen and pelvis and was found to have lung nodules with concomitant metastatic liver lesions consistent with hepatocellular carcinoma versus lung cancer with metastatic spread to the liver. Patient also found to have obstructive jaundice. Patient denies fever, chills, chest pain, palpitation, adductive cough, skin rash, recent contact, or known exposure to COVID-19. No prior admission for review. All medication listed at time of admission has been reconciled. Advanced care planning conducted in ED. Objective - Constitutional Vitals: Vital Signs - 12hr 12/31/21 12/31/21 12/31/21 05:32 07:00 09:51 Temperature 98.6 F Pulse Rate 102 H 101 H Respiratory 18 Rate Blood Pressure 134/86 O2 Sat by Pulse 98 100 Oximetry 12/31/21 11:28 Temperature Pulse Rate Respiratory Rate Blood Pressure O2 Sat by Pulse 96 Oximetry General appearance: Present: no acute distress, well-nourished - EENT Eyes: PERRL, EOM intact ENT: hearing intact, clear oral mucosa Ears: bilateral: normal - Neck Neck: supple, normal ROM - Respiratory Respiratory effort: normal Respiratory: bilateral: CTA - Breasts Breasts: normal - Cardiovascular Rhythm: regular Heart Sounds: Present: S1 & S2. Absent: gallop, rub Extremities: pulses intact, No edema, normal color, Full ROM - Gastrointestinal General gastrointestinal: Present: soft, non-tender, non-distended, normal bowel sounds - Genitourinary Male genitourinary: normal - Integumentary Integumentary: clear, warm, dry - Musculoskeletal Musculoskeletal: 1, strength equal bilaterally - Neurologic Neurologic: moves all extremities - Psychiatric Psychiatric: memory intact, appropriate mood/affect, intact judgment & insight - Labs CBC & Chem 7: 12/31/21 04:05 12/31/21 04:05 Labs: Abnormal lab results 12/30/21 12/31/21 12/31/21 Range/Units 13:01 04:05 04:05 RBC 3.40 L (3.65-5.03) M/mm3 Hgb 10.1 L (11.8-15.2) gm/dl Hct 29.0 L (35.5-45.6) % MCHC 35 H (32-34) % RDW 17.3 H (13.2-15.2) % Lymph % (Auto) 11.7 L (13.4-35.0) % [place] % (Auto) 10.0 H (0.0-7.3) % Lymph # (Auto) 1.1 L (1.2-5.4) K/mm3 [place] # (Auto) 0.9 H (0.0-0.8) K/mm3 Seg Neutrophils % 77.2 H (40.0-70.0) % Carbon Dioxide 21 L (22-30) mmol/L Creatinine 0.6 L (0.8-1.3) mg/dL Glucose 111 H (75-100) mg/dL POC Glucose (70-105) mg/dL Total Bilirubin 19.50 H (0.1-1.2) mg/dL AST 243 H (5-40) units/L ALT 271 H (7-56) units/L Alkaline Phosphatase 792 H (35-129) units/L Albumin 3.5 L (3.9-5) g/dL Urine WBC (Auto) 10.0 H (0.0-6.0) /HPF U Epithel Cells (Auto) 21.0 H (0-13.0) /HPF // Range/Units 11:15 RBC (3.65-5.03) M/mm3 Hgb (11.8-15.2) gm/dl Hct (35.5-45.6) % MCHC (32-34) % RDW (13.2-15.2) % Lymph % (Auto) (13.4-35.0) % [place] % (Auto) (0.0-7.3) % Lymph # (Auto) (1.2-5.4) K/mm3 [place] # (Auto) (0.0-0.8) K/mm3 Seg Neutrophils % (40.0-70.0) % Carbon Dioxide (22-30) mmol/L Creatinine (0.8-1.3) mg/dL Glucose (75-100) mg/dL POC Glucose 110 H (70-105) mg/dL Total Bilirubin (0.1-1.2) mg/dL AST (5-40) units/L ALT (7-56) units/L Alkaline Phosphatase (35-129) units/L Albumin (3.9-5) g/dL Urine WBC (Auto) (0.0-6.0) /HPF U Epithel Cells (Auto) (0-13.0) /HPF Abdominal MRI Central obstructive mass with extensive biliary ductal dilatation. There may be some underlying small masses which would be difficult to exclude in the liver. The primary consideration would be cholangiocarcinoma and ERCP with biopsy recommended for further evaluation. Cholelithiasis with distended gallbladder but no inflammatory change. Simple renal cyst. HEART Score - HEART Score Troponin: Troponin T < 0.010 ng/mL (0.00-0.029) 12/30/21 11:46
[2022-01-01] MEDS: levETIRAcetam 500 MG/5 ML ORAL LIQD PO SCH ×2 (09:44→21:58)
[2022-01-01] MEDS: amLODIPine 5 MG TAB PO SCH (09:45)
[2022-01-01] MEDS: DOXAZOSIN 4 MG TAB PO SCH ×2 (09:45→21:59)
--- NOTE | 2022-01-01 12:54 | Event Note ---
SOCIAL VISIT Patient visited. Chart reviewed w pt and 's permission Suggest start on nebtx w brovana and budesonide (substitute for symbicort) and Incentive kelsey. Mobilization w [facility] to chair when able
--- NOTE | 2022-01-01 15:05 | Magnetic Resonance Report ---
MRI abdomen with and without IV contrast HISTORY: Biliary obstruction, liver masses. TECHNIQUE: 15 mL of Clariscan was given intravenously. COMPARISON: CT and abdomen both from 2 days prior FINDINGS: There is cholelithiasis with a large gallstone measuring approximately 2.5 cm in transverse dimension in the gallbladder. No gallbladder wall thickening. There are innumerable masses within the liver mo st of these findings appear to be tubular and do not see significant hepatic enhancement on this exam , leading me to favor extensive biliary ductal dilatation as the leading finding possibly with some u nderlying smaller masses. Centrally, there is a vague area of soft tissue in the logan hepatis region with initially low enhancement measuring roughly 6 x 4 cm on image 62 of series 1300 with immediate washout. This corresponds with areas of rounded low-attenuation measured on the CT from 2 days prior. There is minimal right basilar atelectasis with otherwise clear lungs. Degenerative changes are prese nt in the spine with no acute osseous abnormality identified. The spleen, pancreas, adrenals, and visualized GI tract show no acute abnormality. There are simple r enal cysts most notably in the right kidney. IMPRESSION: 1. There appears to be a central obstructive mass with extensive biliary ductal dilatation. There may be some underlying smaller masses which would be difficult to exclude in the liver. The primary cons ideration would be cholangiocarcinoma and ERCP with biopsy recommended for further evaluation. 2. Cholelithiasis with distended gallbladder but no inflammatory change. 3. Simple renal cysts. Signer Name: Fidencio Cochran MD Signed: 01/01/2022 3:00 PM Workstation Name: [id number]
--- NOTE | 2022-01-01 18:02 | Progress Note ---
Assessment and Plan Assessment and Plan - Patient Problems (1) Hepatic cancer Current Visit: Yes Status: Acute Qualifiers: Liver malignancy type: unspecified liver malignancy Qualified Code(s): C 22.9 - Malignant neoplasm of liver, not specified as primary or secondary Plan to address problem: CT scan abdomen pelvis. Patient found to have multiple liver lesions co mplicated by obstructive jaundice. Recommend transfer to facility with multidisciplinary cancer specialty team available. Patient will likely require surgical intervention from both GI as well as surgical oncology service. Patient counseled regarding prognosis. Patient was unable to be transferred to outside facility for further care. GI team agreed to initiate treatment at this institution. GI team consulted in ED. Patient pending further care in a.m. as per GI team. MRCP today (2) Lung nodules Current Visit: Yes Status: Acute Plan to address problem: Suspect lung malignancy. Patient will likely require lung biopsy. Patient pending transfer to higher level of care. (3) Obstructive jaundice Current Visit: Yes Status: Acute Plan to address problem: GI consult appreciated (4) Advance care planning Current Visit: No Status: Acute Plan to address problem: Disease education conducted, care plan discussed, diagnoses discussed, prognosis discussed, patient is full code. Patient and acknowledged understanding and agreement with care plan, +30 minutes. (5) Preventative health care Current Visit: Yes Status: Acute Plan to address problem: Patient counseled regarding home safety measures, multidisciplinary approach to cancer treatment, +30 minutes. Subjective Date of service: 01/01/22 Principal diagnosis: Cholangiocarcinoma and hepatic mass Interval history: 76 YO Male with HTN, Mild Intermittent Asthma, Seizure Disorder presents to ED for evaluation. Patient reports "I am just weak". Patient states he has experienced generalized weakness over the past 3 weeks with progressively worsening symptoms over the same timeframe. Patient also acknowledges unintentional 15 pound weight loss over the past week. Patient was seen and evaluated by his primary care physician and treated as outpatient for bronchitis without improvement in symptoms. Patient subsequently failed outpatient therapy. Patient transported to [facility] via private vehicle for further care and evaluation of the aforementioned symptoms. The patient was seen and evaluated in the emergency department. All lab and imaging studies reviewed. Patient underwent CT scan of the abdomen and pelvis and was found to have lung nodules with concomitant metastatic liver lesions consistent with hepatocellular carcinoma versus lung cancer with metastatic spread to the liver. Patient also found to have obstructive jaundice. Patient denies fever, chills, chest pain, palpitation, adductive cough, skin rash, recent contact, or known exposure to COVID-19. No prior admission for review. All medication listed at time of admission has been reconciled. Advanced care planning conducted in ED. 01/01/2022 Patient went for MRCP Results pending Objective - Constitutional Vitals: Vital Signs - 12hr 01/01/22 01/01/22 01/01/22 07:00 07:53 09:45 Temperature 98.6 F Pulse Rate 106 H 105 H 129 H Respiratory 15 Rate Blood Pressure 154/87 O2 Sat by Pulse 97 Oximetry 01/01/22 01/01/22 01/01/22 11:49 12:00 15:00 Temperature 98.6 F Pulse Rate 105 H 106 H Respiratory 14 Rate Blood Pressure 129/78 O2 Sat by Pulse 99 99 Oximetry 01/01/22 15:13 Temperature Pulse Rate 112 H Respiratory 14 Rate Blood Pressure 137/83 O2 Sat by Pulse 99 Oximetry General appearance: Present: no acute distress, well-nourished - EENT Eyes: PERRL, EOM intact ENT: hearing intact, clear oral mucosa Ears: bilateral: normal - Neck Neck: supple, normal ROM - Respiratory Respiratory effort: normal Respiratory: bilateral: CTA - Breasts Breasts: normal - Cardiovascular Heart rate: 78 Rhythm: regular Heart Sounds: Present: S1 & S2. Absent: gallop, rub Extremities: pulses intact, No edema, normal color, Full ROM - Gastrointestinal General gastrointestinal: Present: soft, distended, normal bowel sounds, mass (Abdomen mass in the right upper quadrant) - Genitourinary Male genitourinary: normal - Integumentary Integumentary: clear, warm, dry - Musculoskeletal Musculoskeletal: 1, strength equal bilaterally - Neurologic Neurologic: moves all extremities - Psychiatric Psychiatric: memory intact, appropriate mood/affect, intact judgment & insight - Allied health notes Allied health notes reviewed: nursing, case management - Labs CBC & Chem 7: 12/31/21 04:05 12/31/21 04:05 HEART Score - HEART Score Troponin: Troponin T < 0.010 ng/mL (0.00-0.029) 12/30/21 11:46
--- NOTE | 2022-01-01 18:54 | Gastroenterology Progress Note ---
Assessment and Plan 1. GI: pt w/ signs metastatic dz with mrcp raising possible cholangiocarcinoma - will review mrcp - follow labs - probable ercp 01/03 - awaiting ca 19-9 - continue other meds and diet Subjective Date of service: 01/01/22 Principal diagnosis: Cholangiocarcinoma and hepatic mass Interval history: - no specific GI complaints overnight Objective - Constitutional Vitals: Temp Pulse Resp BP Pulse Ox 98.6 F 112 H 14 137/83 99 01/01/22 11:49 01/01/22 15:13 01/01/22 15:13 01/01/22 15:13 01/01/22 15:13 General appearance: no acute distress - EENT Eyes: PERRL - Respiratory Respiratory: bilateral: CTA - Cardiovascular Rhythm: regular Heart Sounds: Present: S1 & S2 - Gastrointestinal General gastrointestinal: Present: soft, non-tender, non-distended - Labs CBC & Chem 7: 12/31/21 04:05 12/31/21 04:05
--- NOTE | 2022-01-02 08:12 | Progress Note ---
Assessment and Plan Assessment and plan: #Hepatic cancer -CT abdomen/pelvis: patient found to have multiple liver lesions complicated by obstructive jaundice -s/p MRCP and abdominal MRI -attempts were made to transfer the patient to outside facility were unsuccessful, will treat here -ERCP in the morning -GI following, assistance appreciated #Obstructive jaundice - stable -secondary to liver masses -s/p MRCP, plan for ERCP in the morning #Lung nodules -seen on imaging -will need follow up outpatient pending ERCP biopsy results #Lactic acidosis-resolved #Normocytic anemia -stable, no bleeding at this time -likely due to chronic process (malignancy) -will transfuse for Hgb less than 7 #Advance care planning -Disease education conducted, care plan discussed, diagnoses discussed, prognosis discussed, patient is full code. Patient and acknowledged understanding and agreement with care plan, +30 minutes. History Interval history: No acute events overnight. Patient reports constipation and has not had a bowel movement since Sunday. He has passed flatus. He denies N/V and abdominal pain. Hospitalist Physical - Physical exam Narrative exam: GENERAL: Well-developed well-nourished. Sitting on the side of the bed in no acute distress. HEENT: Normocephalic. Atraumatic. NECK: Supple. CHEST/LUNGS: CTAB on room air HEART/CARDIOVASCULAR: RRR. No murmur, rubs or gallops appreciated. ABDOMEN: +BS. NT/ND. SKIN: No rashes noted. NEURO: No focal motor deficit. Follows all commands and is ambulatory. MUSCULOSKELETAL: No joint effusion EXTREMITIES: No cyanosis, clubbing or edema. PSYCH: Cooperative. - Constitutional Vitals: Temp Pulse Resp BP Pulse Ox 98.6 F 167 H 18 206/93 95 01/02/22 07:56 01/02/22 07:56 01/02/22 04:04 01/02/22 07:56 01/02/22 07:56 General appearance: Present: no acute distress, well-nourished HEART Score - HEART Score Troponin: Troponin T < 0.010 ng/mL (0.00-0.029) 12/30/21 11:46 Results - Labs CBC & Chem 7: 12/31/21 04:05 12/31/21 04:05 Labs: Laboratory Last Values WBC 9.1 K/mm3 (4.5-11.0) 12/31/21 04:05 RBC 3.40 M/mm3 (3.65-5.03) L 12/31/21 04:05 Hgb 10.1 gm/dl (11.8-15.2) L 12/31/21 04:05 Hct 29.0 % (35.5-45.6) L 12/31/21 04:05 MCV 85 fl (84-94) 12/31/21 04:05 MCH 30 pg (28-32) 12/31/21 04:05 MCHC 35 % (32-34) H 12/31/21 04:05 RDW 17.3 % (13.2-15.2) H 12/31/21 04:05 Plt Count 184 K/mm3 (140-440) 12/31/21 04:05 Lymph % (Auto) 11.7 % (13.4-35.0) L 12/31/21 04:05 [place] % (Auto) 10.0 % (0.0-7.3) H 12/31/21 04:05 Eos % (Auto) 0.6 % (0.0-4.3) 12/31/21 04:05 Baso % (Auto) 0.5 % (0.0-1.8) 12/31/21 04:05 Lymph # (Auto) 1.1 K/mm3 (1.2-5.4) L 12/31/21 04:05 [place] # (Auto) 0.9 K/mm3 (0.0-0.8) H 12/31/21 04:05 Eos # (Auto) 0.1 K/mm3 (0.0-0.4) 12/31/21 04:05 Baso # (Auto) 0.0 K/mm3 (0.0-0.1) 12/31/21 04:05 Seg Neutrophils % 77.2 % (40.0-70.0) H 12/31/21 04:05 Seg Neutrophils # 7.1 K/mm3 (1.8-7.7) 12/31/21 04:05 PT 14.3 Sec. (12.2-14.9) 12/30/21 11:46 INR 1.00 (0.87-1.13) 12/30/21 11:46 APTT 27.9 Sec. (24.2-36.6) 12/30/21 11:46 Sodium 142 mmol/L (137-145) 12/31/21 04:05 Potassium 3.6 mmol/L (3.6-5.0) 12/31/21 04:05 Chloride 105.9 mmol/L (98-107) 12/31/21 04:05 Carbon Dioxide 21 mmol/L (22-30) L 12/31/21 04:05 Anion Gap 19 mmol/L 12/31/21 04:05 BUN 11 mg/dL (9-20) 12/31/21 04:05 Creatinine 0.6 mg/dL (0.8-1.3) L 12/31/21 04:05 Estimated GFR > 60 ml/min 12/31/21 04:05 BUN/Creatinine Ratio 18 % 12/31/21 04:05 Glucose 111 mg/dL (75-100) H 12/31/21 04:05 POC Glucose 110 mg/dL (70-105) H 12/31/21 11:15 Lactic Acid 1.50 mmol/L (0.7-2.0) 12/30/21 13:51 Calcium 9.3 mg/dL (8.4-10.2) 12/31/21 04:05 Total Bilirubin 19.50 mg/dL (0.1-1.2) H 12/31/21 04:05 AST 243 units/L (5-40) H 12/31/21 04:05 ALT 271 units/L (7-56) H 12/31/21 04:05 Alkaline Phosphatase 792 units/L (35-129) H 12/31/21 04:05 Troponin T < 0.010 ng/mL (0.00-0.029) 12/30/21 11:46 NT-Pro-B Natriuret Pep 135.0 pg/mL (0-900) 12/30/21 11:46 Total Protein 6.5 g/dL (6.3-8.2) 12/31/21 04:05 Albumin 3.5 g/dL (3.9-5) L 12/31/21 04:05 Albumin/Globulin Ratio 1.2 % 12/31/21 04:05 Lipase 63 units/L (13-60) H 12/30/21 11:46 TSH 2.400 mlU/mL (0.270-4.200) 12/30/21 12:22 Urine Color Bee (Yellow) 12/30/21 13:01 Urine Turbidity Clear (Clear) 12/30/21 13:01 Urine pH 6.0 (5.0-7.0) 12/30/21 13:01 Ur Specific [place] 1.015 (1.003-1.030) 12/30/21 13:01 Urine Protein 100 mg/dl mg/dL (Negative) 12/30/21 13:01 Urine Glucose (UA) 50 mg/dL (Negative) 12/30/21 13:01 Urine Ketones Neg mg/dL (Negative) 12/30/21 13:01 Urine Blood Neg (Negative) 12/30/21 13:01 Urine Nitrite Neg (Negative) 12/30/21 13:01 Urine Bilirubin Mod (Negative) 12/30/21 13:01 Urine Ictotest Positive (Negative) 12/30/21 13:01 Urine Urobilinogen 4.0 mg/dL (<2.0) 12/30/21 13:01 Ur Leukocyte Esterase Tr (Negative) 12/30/21 13:01 Urine WBC (Auto) 10.0 /HPF (0.0-6.0) H 12/30/21 13:01 Urine RBC (Auto) 17.0 /HPF (0.0-6.0) 12/30/21 13:01 U Epithel Cells (Auto) 21.0 /HPF (0-13.0) H 12/30/21 13:01 Urine Bacteria (Auto) 1+ /HPF (Negative) 12/30/21 13:01 Uric Acid Crystals 1+ 12/30/21 13:01 Amorphous Crystals 1+ 12/30/21 13:01 Hyaline Casts 14 /LPF 12/30/21 13:01 Urine Opiates Screen Negative 12/30/21 13:01 Urine Methadone Screen Negative 12/30/21 13:01 Ur Barbiturates Screen Negative 12/30/21 13:01 Ur Phencyclidine Scrn Negative 12/30/21 13:01 Ur Amphetamines Screen Negative 12/30/21 13:01 U Benzodiazepines Scrn Negative 12/30/21 13:01 Urine Cocaine Screen Negative 12/30/21 13:01 U Marijuana (THC) Screen Negative 12/30/21 13:01 Drugs of Abuse Note Disclamer 12/30/21 13:01 Plasma/Serum Alcohol < 0.01 % (0-0.07) 12/30/21 11:46 Hepatitis A IgM Ab Non-reactive (NonReactive) 12/30/21 12:25 Hep Bs Antigen Non-reactive (Negative) 12/30/21 12:25 Hep B Core IgM Ab Non-reactive (NonReactive) 12/30/21 12:25 Hepatitis C Antibody Non-reactive (NonReactive) 12/30/21 12:25 Microbiology: Microbiology 12/30/21 13:01 Urine,Clean Catch Urine Culture - Final NO GROWTH AFTER 48 HOURS Ortiz/IV: Voiding Method Toilet Active Medications - Current Medications Current Medications: Generic Name Dose Route Start Last Admin Trade Name Freq PRN Reason Stop Dose Admin Acetaminophen 650 mg 12/30/21 19:51 Acetaminophen 325 Mg Tab PO Q4H PRN Pain MILD(1-3)/Fever >100.5/[place] Albuterol 2.5 mg 12/30/21 19:45 Albuterol 2.5 Mg/3 Ml Nebu IH Q4HRT PRN Shortness Of Breath Amlodipine Besylate 5 mg 12/31/21 10:00 01/01/22 09:45 Amlodipine 5 Mg Tab PO 5 mg DAILY JULES Administration Arformoterol Tartrate 15 mcg 01/02/22 08:15 Arformoterol 15 Mcg/2 Ml Nebu IH Q12HRT [facility] Budesonide 0.5 mg 01/02/22 08:15 Budesonide 0.5 Mg/2 Ml Nebu IH Q12HRT [facility] Doxazosin Mesylate 4 mg 12/30/21 23:45 01/01/22 21:59 Doxazosin 4 Mg Tab PO 4 mg BID JULES Administration Hydromorphone HCl 0.5 mg 12/30/21 19:45 Hydromorphone 0.5 Mg/0.5 Ml Inj IV Q3H PRN Pain , Severe (7-10) Levetiracetam 750 mg 12/30/21 22:00 01/01/22 21:58 Levetiracetam 500 Mg/5 Ml Oral Liqd PO 750 mg BID JULES Administration Morphine Sulfate 2 mg 12/30/21 19:45 Morphine 2 Mg/1 Ml Inj IV Q4H PRN Pain, Moderate (4-6) Ondansetron HCl 4 mg 12/30/21 19:45 Ondansetron 4 Mg/2 Ml Inj IV Q8H PRN Nausea And Vomiting Oxycodone/Acetaminophen 1 tab 12/30/21 19:51 Oxycodone /Acetaminophen 5-325mg Tab PO Q6H PRN Pain, Moderate (4-6) Sodium Chloride 10 ml 12/30/21 22:00 01/01/22 22:00 Sodium Chloride 0.9% 10 Ml Flush Syringe IV 10 ml BID JULES Administration Sodium Chloride 10 ml 12/30/21 19:45 Sodium Chloride 0.9% 10 Ml Flush Syringe IV PRN PRN LINE FLUSH
[2022-01-02] MEDS: BUDESONIDE 0.5 MG/2 ML NEBU IH SCH ×2 (08:47→21:23)
[2022-01-02] MEDS: ARFORMOTEROL 15 MCG/2 ML NEBU IH SCH ×2 (08:47→21:23)
[2022-01-02] MEDS ORDERED: MAGNESIUM CITRATE 300 ML ORAL LIQD PO NR (09:00)
--- NOTE | 2022-01-02 10:22 | XRay Report ---
ABDOMEN 1 VIEW INDICATION / CLINICAL INFORMATION: distention. COMPARISON: CT and MRI from 12/30/2021. FINDINGS: TUBES / LINES: None. BOWEL GAS PATTERN: Moderate amount of stool and gas distending the colon. Visualized small bowel loop s are not dilated. FREE AIR / EXTRALUMINAL GAS: None. ADDITIONAL FINDINGS: No significant additional findings. IMPRESSION: Moderate constipation. No acute radiographic abnormality. Signer Name: Nigel Stone MD Signed: 01/02/2022 10:18 AM Workstation Name: [id number]
[2022-01-02] MEDS: amLODIPine 5 MG TAB PO SCH (10:32)
[2022-01-02] MEDS: DOXAZOSIN 4 MG TAB PO SCH ×2 (10:32→21:57)
[2022-01-02] MEDS: levETIRAcetam 500 MG/5 ML ORAL LIQD PO SCH ×2 (10:32→21:57)
[2022-01-02] MEDS: POLYETHYLENE GLYCOL 3350 17 GM POWDER PO SCH ×2 (11:02→16:16)
--- NOTE | 2022-01-02 11:22 | Gastroenterology Progress Note ---
Assessment and Plan 1. GI: pt w/ increased lft's, imaging suggest metastatic malignancy, - mri reviewed, possible cholangiocarcinoma - ercp in - continue current meds and diet Subjective Date of service: 01/02/22 Principal diagnosis: Cholangiocarcinoma and hepatic mass Interval history: - pt reports some constipation and abdominal discomfort Objective - Constitutional Vitals: Temp Pulse Resp BP Pulse Ox 98.6 F 116 H 18 206/93 100 01/02/22 07:56 01/02/22 08:55 01/02/22 04:04 01/02/22 07:56 01/02/22 08:55 General appearance: no acute distress - EENT Eyes: PERRL - Respiratory Respiratory: bilateral: CTA - Cardiovascular Rhythm: regular Heart Sounds: Present: S1 & S2 - Gastrointestinal General gastrointestinal: Present: soft, non-tender, non-distended - Labs CBC & Chem 7: 12/31/21 04:05 12/31/21 04:05
[2022-01-03 05:45] LABS: Alanine Aminotransferase 240 units/L (7-56); Albumin 3.2 g/dL (3.9-5); Blood Urea Nitrogen 15 mg/dL (9-20); Hemolysis Index 0
[2022-01-03 05:46] LABS: BUN/Creatinine Ratio 50
[2022-01-03] MEDS ORDERED: SODIUM CHLORIDE 0.9% 100 ML ONE (08:06)
--- NOTE | 2022-01-03 08:23 | Anesthesia Day of Surgery ---
Anesthesia Day of Surgery - Day of Surgery Patient Examined: Yes Patient H&P Reviewed: Yes Patient is NPO: Yes
--- NOTE | 2022-01-03 08:30 | Anesthesia Consultation ---
Anesthesia Consult and Med Hx Date of service: 01/03/22 - Airway Anesthetic Teeth Evaluation: Dentures, Edentulous ROM Head & Neck: Adequate Mental/Hyoid Distance: Adequate Mallampati Class: Class I Intubation Access Assessment: Good - Pre-Operative Health Status ASA Pre-Surgery Classification: ASA3 Proposed Anesthetic Plan: MAC (GA if needed) - Pulmonary Hx Smoking: No Hx Asthma: Yes (Last attack 15 years ago) Hx Respiratory Symptoms: No (Climbs stairs) Hx Sleep Apnea: No - Cardiovascular System Hx Hypertension: Yes Hx Heart Attack/AMI: No (Pt reports negative stress test at [place] two years ago) - Central Nervous System Hx Seizures: Yes (Last one in October) - Gastrointestinal Hx Gastroesophageal Reflux Disease: No - Endocrine Hx Liver Disease: Yes (Increased LFTs from stone obstruction) - Hematic Hx Anemia: Yes Hx Sickle Cell Disease: No - Other Systems Hx Alcohol Use: No Hx Cancer: No Hx Obesity: No - Additional Comments Anesthesia Medical History Comments: CT scan of the abdomen and pelvis and was found to have lung nodules with concomitant metastatic liver lesions consistent with hepatocellular carcinoma versus lung cancer with metastatic spread to the liver. Patient also found to have obstructive jaundice
[2022-01-03] MEDS ORDERED: propofoL 200 MG/20 ML VIAL IV ONE ×2 (08:39→09:00)
--- NOTE | 2022-01-03 10:00 | Fluoroscopy Report ---
INTRAOPERATIVE FLUOROSCOPY: ERCP INDICATION: biliary obstruction. TECHNIQUE: Intraoperative spot images were obtained during the procedure. FINDINGS: Submitted imaging demonstrates generalized irregular caliber of the intrapelvic and axial hepatic kristina e ducts with moderate biliary ductal dilatation. Please see the procedure report for further details. Fluoroscopy Time: 7 minutes. Fluoroscopy Images: 7. Signer Name: Jhon Tyler MD Signed: 01/03/2022 9:55 AM Workstation Name: [id number]
[2022-01-03] MEDS: ARFORMOTEROL 15 MCG/2 ML NEBU IH SCH ×2 (10:08→21:00)
[2022-01-03] MEDS: BUDESONIDE 0.5 MG/2 ML NEBU IH SCH ×2 (10:08→21:00)
--- NOTE | 2022-01-03 10:42 | Post Operative Note ---
Pre-op diagnosis: biliary obstruction Post-op diagnosis: same Findings: ERCP: nl ampulla - noted dilated intra-hepatic biliary tree as well as strictured like area at bifurcation of common hepatic duct - despite multiple maneuvers unable to float guide wire pass strictured area, suspect possible mass in area - sphinterotomy performed - no other intervention done Procedure: ERCP Anesthesia: MAC Surgeon: CRISTIANO ESPINAL Estimated blood loss: none Pathology: list Specimen disposition: to lab Condition: stable Disposition: floor
--- NOTE | 2022-01-03 12:01 | Consultation ---
History of Present Illness - Reason for Consult Consult date: 01/03/22 PTC Requesting physician: CRISTIANO ESPINAL - History of Present Illness 76 YO Male with HTN, Mild Intermittent Asthma, Seizure Disorder presents to ED for evaluation. Patient reports "I am just weak". Patient states he has experienced generalized weakness over the past 3 weeks with progressively worsening symptoms over the same timeframe. Patient also acknowledges unintentional 15 pound weight loss over the past week. Patient was seen and evaluated by his primary care physician and treated as outpatient for bronchitis without improvement in symptoms. Patient subsequently failed outpatient therapy. Patient transported to [facility] via private vehicle for further care and evaluation of the aforementioned symptoms. The patient was seen and evaluated in the emergency department. All lab and imaging studies reviewed. Patient underwent CT scan of the abdomen and pelvis and was found to have lung nodules with concomitant metastatic liver lesions consistent with hepatocellular carcinoma versus lung cancer with metastatic spread to the liver. Patient also found to have obstructive jaundice. Patient denies fever, chills, chest pain, palpitation, adductive cough, skin rash, recent contact, or known exposure to COVID-19. No prior admission for review. All medication listed at time of admission has been reconciled. Advanced care planning conducted in ED. Patient has elevated bilirubin and GI attempted ERCP which was unsuccessful. The patient has multiple lesions throughout the liver with central obstruction concerning for metastatic disease, cholangiocarcinoma, pancreatic cancer, or possible autoimmune condition. IR consulted for possible PTC. Past History Past Medical History: hypertension, seizures Past Surgical History: cataract removal, Other (Shoulder surgery) Social history: , lives with family Family history: hypertension Medications and Allergies Allergies Allergy/AdvReac Type Severity Reaction Status Date / Time No Known Allergies Allergy Verified 12/30/21 12:49 Home Medications Medication Instructions Recorded Confirmed Last Taken Type Albuterol Sulfate 1 inh INHALATION PRN PRN 07/08/19 12/30/21 12/29/21 08:00 History 750 mg Amlodipine Besylate [Norvasc] 5 mg PO DAILY #30 07/09/19 12/30/21 12/30/21 08:00 Rx 5 mg Doxazosin Mesylate [Cardura Xl] 4 mg PO BID #60 07/09/19 12/30/21 12/30/21 08:00 Rx Keppra TAB 750 mg PO BID #60 10/25/21 12/30/21 12/30/21 08:00 Rx 750 mg Theophylline Anhydrous ER [Theodur] 300 mg PO ONCE 12/30/21 12/30/21 12/30/21 08:00 History Active Meds: Active Medications Acetaminophen (Acetaminophen 325 Mg Tab) 650 mg PO Q4H PRN PRN Reason: Pain MILD(1-3)/Fever >100.5/[place] Albuterol (Albuterol 2.5 Mg/3 Ml Nebu) 2.5 mg IH Q4HRT PRN PRN Reason: Shortness Of Breath Amlodipine Besylate (Amlodipine 5 Mg Tab) 5 mg PO DAILY [facility] Last Admin: 01/02/22 10:32 Dose: 5 mg Arformoterol Tartrate (Arformoterol 15 Mcg/2 Ml Nebu) 15 mcg IH Q12HRT [facility] Last Admin: 01/03/22 10:08 Dose: Not Given Budesonide (Budesonide 0.5 Mg/2 Ml Nebu) 0.5 mg IH Q12HRT [facility] Last Admin: 01/03/22 10:08 Dose: Not Given Doxazosin Mesylate (Doxazosin 4 Mg Tab) 4 mg PO BID [facility] Last Admin: 01/02/22 21:57 Dose: 4 mg Hydromorphone HCl (Hydromorphone 0.5 Mg/0.5 Ml Inj) 0.5 mg IV Q3H PRN PRN Reason: Pain , Severe (7-10) Levetiracetam (Levetiracetam 500 Mg/5 Ml Oral Liqd) 750 mg PO BID [facility] Last Admin: 01/02/22 21:57 Dose: 750 mg Morphine Sulfate (Morphine 2 Mg/1 Ml Inj) 2 mg IV Q4H PRN PRN Reason: Pain, Moderate (4-6) Ondansetron HCl (Ondansetron 4 Mg/2 Ml Inj) 4 mg IV Q8H PRN PRN Reason: Nausea And Vomiting Oxycodone/Acetaminophen (Oxycodone /Acetaminophen 5-325mg Tab) 1 tab PO Q6H PRN PRN Reason: Pain, Moderate (4-6) Polyethylene Glycol (Polyethylene Glycol 3350 17 Gm Powder) 17 gm PO QDAY [facility] Last Admin: 01/02/22 16:16 Dose: 17 gm Sodium Chloride (Sodium Chloride 0.9% 10 Ml Flush Syringe) 10 ml IV BID [facility] Last Admin: 01/02/22 21:59 Dose: 10 ml Sodium Chloride (Sodium Chloride 0.9% 10 Ml Flush Syringe) 10 ml IV PRN PRN PRN Reason: LINE FLUSH Review of Systems All systems: negative (see HPI) Exam - Constitutional Vitals: Temp Pulse Resp BP Pulse Ox 98.0 F 94 H 16 112/60 98 01/03/22 09:43 01/03/22 10:35 01/03/22 10:35 01/03/22 10:35 01/03/22 10:35 General appearance: Present: no acute distress, other (Jaundice) - EENT Eyes: Present: EOM intact ENT: hearing intact - Neck Neck: Present: supple - Respiratory Respiratory effort: normal - Cardiovascular Rhythm: regular - Extremities Extremities: normal temperature, normal color - Abdominal General gastrointestinal: Present: soft, tender (Epigastric and upper abdominal discomfort) - Psychiatric Psychiatric: appropriate mood/affect, cooperative Results - Labs CBC & Chem 7: 12/31/21 04:05 01/03/22 04:48 Labs: Abnormal lab results 01/03/22 Range/Units 04:48 Creatinine 0.3 L (0.8-1.3) mg/dL Glucose 110 H (75-100) mg/dL Total Bilirubin 31.20 H (0.1-1.2) mg/dL AST 266 H (5-40) units/L ALT 240 H (7-56) units/L Alkaline Phosphatase 1093 H (35-129) units/L Total Protein 5.8 L (6.3-8.2) g/dL Albumin 3.2 L (3.9-5) g/dL - Imaging and Cardiology CT scan - abdomen: report reviewed, image reviewed Assessment and Plan 76-year-old male with numerous metastatic lesions throughout the liver and pancreatic head mass/distal CBD mass with elevated T bili, overall failure to thrive, early satiety, and multiple issues who recently had ERCP which was unsuccessful. The patient is not febrile, and has no acute distress. He is hemodynamically stable. He has minimal pruritus. His biggest issue is early satiety. Recommend transfer to facility with oncology to provide longitudinal care, and surgical oncology. PTC can be performed at the same institution. Performing PTC at this institution without oncology and surgical oncology would be poorly advised. Discussed with hospitalist and explained the plan.
[2022-01-03] MEDS: levETIRAcetam 500 MG/5 ML ORAL LIQD PO SCH (12:26)
[2022-01-03] MEDS: POLYETHYLENE GLYCOL 3350 17 GM POWDER PO SCH (12:26)
[2022-01-03] MEDS: DOXAZOSIN 4 MG TAB PO SCH ×2 (12:26→21:00)
[2022-01-03] MEDS: amLODIPine 5 MG TAB PO SCH (12:26)
--- NOTE | 2022-01-03 14:44 | Progress Note ---
Assessment and Plan Assessment and plan: #Possible hepatocellular carcinoma with mets #Possible cholangiocarcinoma with mets #Hyperbilirubinemia -CT abdomen/pelvis: patient found to have multiple liver lesions complicated by obstructive jaundice -s/p MRCP and abdominal MRI -Scheduled ERCP for 01/03/2022 was unsuccessful and biopsy was not obtained. Patient would benefit from higher level of care in order to do percutaneous transhepatic cholangiography (PTC) at a facility that has surgical oncology available in addition to interventional radiology. -attempts were made to transfer the patient to outside facility were u nsuccessful. Reattempting transfer to outside hospital. -GI consulted; appreciate recs. Interventional radiology consulted; appreciate recs #Constipation Likely secondary to abdominal mass. Last bowel movement was 12/28/2021. Continue MiraLAX and starting bisacodyl enemas twice daily as needed. Transitioning to soft diet. Continue to monitor #Obstructive jaundice - stable #Hyperbilirubinemia Total bilirubin 31.2, AST 266, ALT 240, alkaline phosphatase 1093 -secondary to liver masses -s/p MRCP #Lung nodules -seen on imaging -will need follow up outpatient pending ERCP biopsy results #Lactic acidosis-resolved #Normocytic anemia -stable, no bleeding at this time -likely due to chronic process (presumed malignancy) -will transfuse for Hgb less than 7 #Advance care planning -Disease education conducted, care plan discussed, diagnoses discussed, pro gnosis discussed, patient is full code. Patient and acknowledged understanding and agreement with care plan, +30 minutes. #Discharge planning - Patient is pending acceptance at outside facility for higher level of care - Case management has been made aware. Disposition Plan: Continue medical management Total Time Spent with Patient (Minutes): 45 minutes History Interval history: No acute events overnight. Hospitalist Physical - Constitutional Vitals: Temp Pulse Resp BP Pulse Ox 98.2 F 101 H 18 140/78 98 01/03/22 13:57 01/03/22 14:00 01/03/22 13:57 01/03/22 13:57 01/03/22 14:00 General appearance: Present: no acute distress, other (Jaundice) - EENT Eyes: Present: PERRL, EOM intact, scleral icterus ENT: hearing intact, clear oral mucosa, dentition normal - Neck Neck: Present: supple, normal ROM - Respiratory Respiratory effort: normal Respiratory: bilateral: CTA - Cardiovascular Rhythm: regular Heart Sounds: Present: S1 & S2 - Extremities Extremities: no ischemia, pulses intact, pulses symmetrical, No edema, normal temperature, normal color, Full ROM Peripheral Pulses: within normal limits - Abdominal General gastrointestinal: soft, non-tender, distended (Mild distention), normal bowel sounds - Integumentary Integumentary: Present: clear, warm, dry - Psychiatric Psychiatric: appropriate mood/affect, intact judgment & insight, memory intact, cooperative - Neurologic Neurologic: CNII-XII intact, moves all extremities - Allied Health Allied health notes reviewed: nursing HEART Score - HEART Score Troponin: Troponin T < 0.010 ng/mL (0.00-0.029) 12/30/21 11:46 Results - Labs CBC & Chem 7: 12/31/21 04:05 01/03/22 04:48 Labs: Laboratory Last Values WBC 9.1 K/mm3 (4.5-11.0) 12/31/21 04:05 RBC 3.40 M/mm3 (3.65-5.03) L 12/31/21 04:05 Hgb 10.1 gm/dl (11.8-15.2) L 12/31/21 04:05 Hct 29.0 % (35.5-45.6) L 12/31/21 04:05 MCV 85 fl (84-94) 12/31/21 04:05 MCH 30 pg (28-32) 12/31/21 04:05 MCHC 35 % (32-34) H 12/31/21 04:05 RDW 17.3 % (13.2-15.2) H 12/31/21 04:05 Plt Count 184 K/mm3 (140-440) 12/31/21 04:05 Lymph % (Auto) 11.7 % (13.4-35.0) L 12/31/21 04:05 [place] % (Auto) 10.0 % (0.0-7.3) H 12/31/21 04:05 Eos % (Auto) 0.6 % (0.0-4.3) 12/31/21 04:05 Baso % (Auto) 0.5 % (0.0-1.8) 12/31/21 04:05 Lymph # (Auto) 1.1 K/mm3 (1.2-5.4) L 12/31/21 04:05 [place] # (Auto) 0.9 K/mm3 (0.0-0.8) H 12/31/21 04:05 Eos # (Auto) 0.1 K/mm3 (0.0-0.4) 12/31/21 04:05 Baso # (Auto) 0.0 K/mm3 (0.0-0.1) 12/31/21 04:05 Seg Neutrophils % 77.2 % (40.0-70.0) H 12/31/21 04:05 Seg Neutrophils # 7.1 K/mm3 (1.8-7.7) 12/31/21 04:05 PT 14.3 Sec. (12.2-14.9) 12/30/21 11:46 INR 1.00 (0.87-1.13) 12/30/21 11:46 APTT 27.9 Sec. (24.2-36.6) 12/30/21 11:46 Sodium 138 mmol/L (137-145) 01/03/22 04:48 Potassium 3.6 mmol/L (3.6-5.0) 01/03/22 04:48 Chloride 101.2 mmol/L (98-107) 01/03/22 04:48 Carbon Dioxide 22 mmol/L (22-30) 01/03/22 04:48 Anion Gap 18 mmol/L 01/03/22 04:48 BUN 15 mg/dL (9-20) 01/03/22 04:48 Creatinine 0.3 mg/dL (0.8-1.3) L 01/03/22 04:48 Estimated GFR > 60 ml/min 01/03/22 04:48 BUN/Creatinine Ratio 50 % 01/03/22 04:48 Glucose 110 mg/dL (75-100) H 01/03/22 04:48 POC Glucose 110 mg/dL (70-105) H 12/31/21 11:15 Lactic Acid 1.50 mmol/L (0.7-2.0) 12/30/21 13:51 Calcium 9.0 mg/dL (8.4-10.2) 01/03/22 04:48 Total Bilirubin 31.20 mg/dL (0.1-1.2) H 01/03/22 04:48 AST 266 units/L (5-40) H 01/03/22 04:48 ALT 240 units/L (7-56) H 01/03/22 04:48 Alkaline Phosphatase 1093 units/L (35-129) H 01/03/22 04:48 Troponin T < 0.010 ng/mL (0.00-0.029) 12/30/21 11:46 NT-Pro-B Natriuret Pep 135.0 pg/mL (0-900) 12/30/21 11:46 Total Protein 5.8 g/dL (6.3-8.2) L 01/03/22 04:48 Albumin 3.2 g/dL (3.9-5) L 01/03/22 04:48 Albumin/Globulin Ratio 1.2 % 01/03/22 04:48 Lipase 63 units/L (13-60) H 12/30/21 11:46 TSH 2.400 mlU/mL (0.270-4.200) 12/30/21 12:22 Urine Color Bee (Yellow) 12/30/21 13:01 Urine Turbidity Clear (Clear) 12/30/21 13:01 Urine pH 6.0 (5.0-7.0) 12/30/21 13:01 Ur Specific [place] 1.015 (1.003-1.030) 12/30/21 13:01 Urine Protein 100 mg/dl mg/dL (Negative) 12/30/21 13:01 Urine Glucose (UA) 50 mg/dL (Negative) 12/30/21 13:01 Urine Ketones Neg mg/dL (Negative) 12/30/21 13:01 Urine Blood Neg (Negative) 12/30/21 13:01 Urine Nitrite Neg (Negative) 12/30/21 13:01 Urine Bilirubin Mod (Negative) 12/30/21 13:01 Urine Ictotest Positive (Negative) 12/30/21 13:01 Urine Urobilinogen 4.0 mg/dL (<2.0) 12/30/21 13:01 Ur Leukocyte Esterase Tr (Negative) 12/30/21 13:01 Urine WBC (Auto) 10.0 /HPF (0.0-6.0) H 12/30/21 13:01 Urine RBC (Auto) 17.0 /HPF (0.0-6.0) 12/30/21 13:01 U Epithel Cells (Auto) 21.0 /HPF (0-13.0) H 12/30/21 13:01 Urine Bacteria (Auto) 1+ /HPF (Negative) 12/30/21 13:01 Uric Acid Crystals 1+ 12/30/21 13:01 Amorphous Crystals 1+ 12/30/21 13:01 Hyaline Casts 14 /LPF 12/30/21 13:01 Urine Opiates Screen Negative 12/30/21 13:01 Urine Methadone Screen Negative 12/30/21 13:01 Ur Barbiturates Screen Negative 12/30/21 13:01 Ur Phencyclidine Scrn Negative 12/30/21 13:01 Ur Amphetamines Screen Negative 12/30/21 13:01 U Benzodiazepines Scrn Negative 12/30/21 13:01 Urine Cocaine Screen Negative 12/30/21 13:01 U Marijuana (THC) Screen Negative 12/30/21 13:01 Drugs of Abuse Note Disclamer 12/30/21 13:01 Plasma/Serum Alcohol < 0.01 % (0-0.07) 12/30/21 11:46 Hepatitis A IgM Ab Non-reactive (NonReactive) 12/30/21 12:25 Hep Bs Antigen Non-reactive (Negative) 12/30/21 12:25 Hep B Core IgM Ab Non-reactive (NonReactive) 12/30/21 12:25 Hepatitis C Antibody Non-reactive (NonReactive) 12/30/21 12:25 Ortiz/IV: Voiding Method Toilet Active Medications - Current Medications Current Medications: Generic Name Dose Route Start Last Admin Trade Name Freq PRN Reason Stop Dose Admin Acetaminophen 650 mg 12/30/21 19:51 Acetaminophen 325 Mg Tab PO Q4H PRN Pain MILD(1-3)/Fever >100.5/[place] Albuterol 2.5 mg 12/30/21 19:45 Albuterol 2.5 Mg/3 Ml Nebu IH Q4HRT PRN Shortness Of Breath Amlodipine Besylate 5 mg 12/31/21 10:00 01/03/22 12:26 Amlodipine 5 Mg Tab PO 5 mg DAILY JULES Administration Arformoterol Tartrate 15 mcg 01/02/22 08:15 01/03/22 10:08 Arformoterol 15 Mcg/2 Ml Nebu IH Not Given Q12HRT JULES Bisacodyl 10 mg 01/03/22 14:21 Bisacodyl 10 Mg Rect Supp [place] BID PRN Constipation Budesonide 0.5 mg 01/02/22 08:15 01/03/22 10:08 Budesonide 0.5 Mg/2 Ml Nebu IH Not Given Q12HRT [facility] Doxazosin Mesylate 4 mg 12/30/21 23:45 01/03/22 12:26 Doxazosin 4 Mg Tab PO 4 mg BID JULES Administration Hydromorphone HCl 0.5 mg 12/30/21 19:45 Hydromorphone 0.5 Mg/0.5 Ml Inj IV Q3H PRN Pain , Severe (7-10) Levetiracetam 750 mg 12/30/21 22:00 01/03/22 12:26 Levetiracetam 500 Mg/5 Ml Oral Liqd PO 750 mg BID JULES Administration Morphine Sulfate 2 mg 12/30/21 19:45 Morphine 2 Mg/1 Ml Inj IV Q4H PRN Pain, Moderate (4-6) Ondansetron HCl 4 mg 12/30/21 19:45 Ondansetron 4 Mg/2 Ml Inj IV Q8H PRN Nausea And Vomiting Oxycodone/Acetaminophen 1 tab 12/30/21 19:51 Oxycodone /Acetaminophen 5-325mg Tab PO Q6H PRN Pain, Moderate (4-6) Polyethylene Glycol 17 gm 01/02/22 10:00 01/03/22 12:26 Polyethylene Glycol 3350 17 Gm Powder PO 17 gm QDAY JULES Administration Sodium Chloride 10 ml 12/30/21 22:00 01/03/22 12:29 Sodium Chloride 0.9% 10 Ml Flush Syringe IV 10 ml BID JULES Administration Sodium Chloride 10 ml 12/30/21 19:45 Sodium Chloride 0.9% 10 Ml Flush Syringe IV PRN PRN LINE FLUSH
[2022-01-03] MEDS ORDERED: ALBUTEROL 8.5 GM MDI INHALATION IH SCH (15:00)
--- NOTE | 2022-01-03 16:09 | Post Anesthesia Evaluation ---
- Post Anesthesia Evaluation Patient Participated: Yes Airway Patent: Yes Stable Respiratory Function: Yes Nausea/Vomiting: No Temp > 96.8F: Yes Pain Manageable: Yes Adequeate Hydration: Yes Anesthesia Complications: No Block Receding Appropriately: Not Applicable Patient on Ventilator: No
--- NOTE | 2022-01-03 16:15 | Operative Report ---
DATE OF SURGERY: 01/03/2022 PROCEDURE PERFORMED: ERCP with sphincterotomy. INDICATIONS: 1. Increased liver function tests. 2. Biliary obstruction. MEDICATIONS: Propofol per MEDICAL RECORDS ADMINISTRATOR. COMPLICATIONS: None. DESCRIPTION OF PROCEDURE: The patient was brought to the procedure suite. The patient had the procedure discussed with him at length. All risks, complications, benefits discussed, after which the patient signed for the procedure to be performed. The patient was placed in left lateral decubitus position. A mouth block was placed in the patient's oral cavity. After adequate sedation with medications as above, endoscope placed in the mouth and brought to the level of the second portion of duodenum. No retroflexion views performed. The patient's vital signs remained stable throughout the procedure. FINDINGS: The esophagus and stomach were noted and appeared grossly normal. The ampulla and the second portion of the duodenum appeared normal. With the aid of a sphincterotome and guidewire, cannulation was attempted. Cannulation to what was felt to the common bile duct and common hepatic duct was performed. In the area of what was felt to be the bifurcation of the common hepatic duct, there is noted to be a stricture. Despite multiple attempts and different maneuvers, we were unable to pass the guidewire past this area. Proximal intrahepatic biliary tree appeared very dilated. Possible mass in that area. No other interventions were performed. Pancreatogram showed a somewhat slightly dilated pancreatic duct. The patient tolerated the procedure well. No complications during this procedure. IMPRESSION: 1. Dilated intrahepatic biliary tree. 2. Possible stricture, bifurcation of the common hepatic duct, which was unable to be passed with the sphincterotome or guidewire. 3. Dilated pancreatic duct. 4. No interventions. RECOMMENDATIONS: 1. Consider PTC and/or transfer to tertiary center. 2. Follow labs. 3. We will follow. TID: [id number] RECEIPT: [id number] CAB/RIS
[2022-01-03] MEDS: levETIRAcetam 500 MG TAB PO SCH (21:00)
--- NOTE | 2022-01-04 08:59 | Gastroenterology Progress Note ---
Assessment and Plan 1. Jaundice - MRI reviewed: possible cholangiocarcinoma - imaging suggest metastatic malignancy - Pending CA-19-9 - morning labs not yet back, as of yesterday: - Tbili: 31.2 - AST: 266 - ALT: 240 - Alk Phos: 1093 -Continue diet -ERCP unsuccessful yesterday, consulted IR for PTC placement, planning to transfer pt to either [facility] or [facility] for higher level care. Currently waiting on a bed. Subjective Date of service: 01/04/22 Principal diagnosis: Cholangiocarcinoma and hepatic mass Interval history: Pt seen and examined. Sitting comfortably in bedside chair. C/o RUQ pain/tenderness, but acknowledges that it's most likely d/t "everything that is going on." Denies n/v, states he just ate breakfast. No other new complaints. Objective - Constitutional Vitals: Temp Pulse Resp BP Pulse Ox 98.7 F 108 H 18 157/87 100 01/04/22 04:58 01/04/22 04:58 01/04/22 04:58 01/04/22 04:58 01/04/22 08:00 General appearance: no acute distress - EENT Eyes: scleral icterus ENT: hearing intact, clear oral mucosa, dentition normal - Respiratory Respiratory effort: normal - Gastrointestinal General gastrointestinal: Present: tender - Integumentary Integumentary: Present: clear, warm, dry - Neurologic Neurological: alert and oriented x3 - Psychiatric Psychiatric: appropriate mood/affect, intact judgment & insight, memory intact, cooperative - Labs CBC & Chem 7: 12/31/21 04:05 01/03/22 04:48
[2022-01-04] MEDS: levETIRAcetam 500 MG TAB PO SCH (09:19)
[2022-01-04 09:20] LABS: Alanine Aminotransferase 255 units/L (7-56); Albumin 3.1 g/dL (3.9-5); Blood Urea Nitrogen 14 mg/dL (9-20); Calcium 9.1 mg/dL (8.4-10.2); Hemolysis Index 0
[2022-01-04] MEDS: DOXAZOSIN 4 MG TAB PO SCH (09:20)
[2022-01-04] MEDS: amLODIPine 5 MG TAB PO SCH (09:20)
[2022-01-04] MEDS: POLYETHYLENE GLYCOL 3350 17 GM POWDER PO SCH (09:20)
[2022-01-04 09:25] LABS: BUN/Creatinine Ratio 70
[2022-01-04] MEDS: BUDESONIDE 0.5 MG/2 ML NEBU IH SCH (09:26)
[2022-01-04] MEDS: ARFORMOTEROL 15 MCG/2 ML NEBU IH SCH (09:26)
[2022-01-04] MEDS ORDERED: DOXAZOSIN 4 MG TAB PO SCH (10:00)
--- NOTE | 2022-01-04 13:17 | Progress Note ---
Assessment and Plan Assessment and plan: #Possible hepatocellular carcinoma with mets #Possible cholangiocarcinoma with mets #Hyperbilirubinemia -CT abdomen/pelvis: patient found to have multiple liver lesions complicated by obstructive jaundice -s/p MRCP and abdominal MRI -Scheduled ERCP for 01/03/2022 was unsuccessful and biopsy was not obtained. Patient would benefit from higher level of care in order to do percutaneous transhepatic cholangiography (PTC) at a facility that has surgical oncology available in addition to interventional radiology. -attempts were made to transfer the patient to outside facility were u nsuccessful. Reattempting transfer to outside hospital. -GI consulted; appreciate recs. Interventional radiology consulted; appreciate recs #Constipation Likely secondary to abdominal mass. Last bowel movement was 12/28/2021. Continue MiraLAX and starting bisacodyl enemas twice daily as needed. Transitioning to soft diet. Continue to monitor #Obstructive jaundice - stable #Hyperbilirubinemiaworsening Total bilirubin 31.2, AST 266, ALT 240, alkaline phosphatase 1093 -secondary to liver masses -s/p MRCP #Lung nodules -seen on imaging -will need follow up outpatient pending ERCP biopsy results #Lactic acidosis-resolved #Normocytic anemia -stable, no bleeding at this time -likely due to chronic process (presumed malignancy) -will transfuse for Hgb less than 7 #Advance care planning -Disease education conducted, care plan discussed, diagnoses discussed, prognosis discussed, patient is full code. Patient and acknowledged understanding and agreement with care plan, +30 minutes. #Discharge planning - Patient is pending acceptance at outside facility for higher level of care - Case management has been made aware. Disposition Plan: Continue medical management Total Time Spent with Patient (Minutes): 45 minutes History Interval history: No acute events overnight. Hospitalist Physical - Constitutional Vitals: Temp Pulse Resp BP Pulse Ox 98.7 F 102 H 18 157/87 100 01/04/22 04:58 01/04/22 09:28 01/04/22 09:28 01/04/22 04:58 01/04/22 09:30 General appearance: Present: no acute distress, other (Jaundice) - EENT Eyes: Present: PERRL, EOM intact ENT: hearing intact, clear oral mucosa, dentition normal - Neck Neck: Present: supple, normal ROM - Respiratory Respiratory effort: normal Respiratory: bilateral: CTA - Cardiovascular Rhythm: regular Heart Sounds: Present: S1 & S2 - Extremities Extremities: no ischemia, pulses intact, pulses symmetrical, No edema, normal temperature, normal color, Full ROM Peripheral Pulses: within normal limits - Abdominal General gastrointestinal: soft, non-tender, distended (Mildly distended), normal bowel sounds - Integumentary Integumentary: Present: clear, warm, dry - Psychiatric Psychiatric: appropriate mood/affect, intact judgment & insight, memory intact, cooperative - Neurologic Neurologic: CNII-XII intact, moves all extremities - Allied Health Allied health notes reviewed: nursing HEART Score - HEART Score Troponin: Troponin T < 0.010 ng/mL (0.00-0.029) 12/30/21 11:46 Results - Labs CBC & Chem 7: 12/31/21 04:05 01/04/22 08:34 Labs: Laboratory Last Values WBC 9.1 K/mm3 (4.5-11.0) 12/31/21 04:05 RBC 3.40 M/mm3 (3.65-5.03) L 12/31/21 04:05 Hgb 10.1 gm/dl (11.8-15.2) L 12/31/21 04:05 Hct 29.0 % (35.5-45.6) L 12/31/21 04:05 MCV 85 fl (84-94) 12/31/21 04:05 MCH 30 pg (28-32) 12/31/21 04:05 MCHC 35 % (32-34) H 12/31/21 04:05 RDW 17.3 % (13.2-15.2) H 12/31/21 04:05 Plt Count 184 K/mm3 (140-440) 12/31/21 04:05 Lymph % (Auto) 11.7 % (13.4-35.0) L 12/31/21 04:05 [place] % (Auto) 10.0 % (0.0-7.3) H 12/31/21 04:05 Eos % (Auto) 0.6 % (0.0-4.3) 12/31/21 04:05 Baso % (Auto) 0.5 % (0.0-1.8) 12/31/21 04:05 Lymph # (Auto) 1.1 K/mm3 (1.2-5.4) L 12/31/21 04:05 [place] # (Auto) 0.9 K/mm3 (0.0-0.8) H 12/31/21 04:05 Eos # (Auto) 0.1 K/mm3 (0.0-0.4) 12/31/21 04:05 Baso # (Auto) 0.0 K/mm3 (0.0-0.1) 12/31/21 04:05 Seg Neutrophils % 77.2 % (40.0-70.0) H 12/31/21 04:05 Seg Neutrophils # 7.1 K/mm3 (1.8-7.7) 12/31/21 04:05 PT 14.3 Sec. (12.2-14.9) 12/30/21 11:46 INR 1.00 (0.87-1.13) 12/30/21 11:46 APTT 27.9 Sec. (24.2-36.6) 12/30/21 11:46 Sodium 135 mmol/L (137-145) L 01/04/22 08:34 Potassium 3.9 mmol/L (3.6-5.0) 01/04/22 08:34 Chloride 101.5 mmol/L (98-107) 01/04/22 08:34 Carbon Dioxide 22 mmol/L (22-30) 01/04/22 08:34 Anion Gap 15 mmol/L 01/04/22 08:34 BUN 14 mg/dL (9-20) 01/04/22 08:34 Creatinine 0.2 mg/dL (0.8-1.3) L 01/04/22 08:34 Estimated GFR > 60 ml/min 01/04/22 08:34 BUN/Creatinine Ratio 70 % 01/04/22 08:34 Glucose 101 mg/dL (75-100) H 01/04/22 08:34 POC Glucose 110 mg/dL (70-105) H 12/31/21 11:15 Lactic Acid 1.50 mmol/L (0.7-2.0) 12/30/21 13:51 Calcium 9.1 mg/dL (8.4-10.2) 01/04/22 08:34 Total Bilirubin 35.00 mg/dL (0.1-1.2) H 01/04/22 08:34 AST 261 units/L (5-40) H 01/04/22 08:34 ALT 255 units/L (7-56) H 01/04/22 08:34 Alkaline Phosphatase 1147 units/L (35-129) H 01/04/22 08:34 Troponin T < 0.010 ng/mL (0.00-0.029) 12/30/21 11:46 NT-Pro-B Natriuret Pep 135.0 pg/mL (0-900) 12/30/21 11:46 Total Protein 6.2 g/dL (6.3-8.2) L 01/04/22 08:34 Albumin 3.1 g/dL (3.9-5) L 01/04/22 08:34 Albumin/Globulin Ratio 1.0 % 01/04/22 08:34 Lipase 63 units/L (13-60) H 12/30/21 11:46 TSH 2.400 mlU/mL (0.270-4.200) 12/30/21 12:22 Urine Color Bee (Yellow) 12/30/21 13:01 Urine Turbidity Clear (Clear) 12/30/21 13:01 Urine pH 6.0 (5.0-7.0) 12/30/21 13:01 Ur Specific [place] 1.015 (1.003-1.030) 12/30/21 13:01 Urine Protein 100 mg/dl mg/dL (Negative) 12/30/21 13:01 Urine Glucose (UA) 50 mg/dL (Negative) 12/30/21 13:01 Urine Ketones Neg mg/dL (Negative) 12/30/21 13:01 Urine Blood Neg (Negative) 12/30/21 13:01 Urine Nitrite Neg (Negative) 12/30/21 13:01 Urine Bilirubin Mod (Negative) 12/30/21 13:01 Urine Ictotest Positive (Negative) 12/30/21 13:01 Urine Urobilinogen 4.0 mg/dL (<2.0) 12/30/21 13:01 Ur Leukocyte Esterase Tr (Negative) 12/30/21 13:01 Urine WBC (Auto) 10.0 /HPF (0.0-6.0) H 12/30/21 13:01 Urine RBC (Auto) 17.0 /HPF (0.0-6.0) 12/30/21 13:01 U Epithel Cells (Auto) 21.0 /HPF (0-13.0) H 12/30/21 13:01 Urine Bacteria (Auto) 1+ /HPF (Negative) 12/30/21 13:01 Uric Acid Crystals 1+ 12/30/21 13:01 Amorphous Crystals 1+ 12/30/21 13:01 Hyaline Casts 14 /LPF 12/30/21 13:01 Urine Opiates Screen Negative 12/30/21 13:01 Urine Methadone Screen Negative 12/30/21 13:01 Ur Barbiturates Screen Negative 12/30/21 13:01 Ur Phencyclidine Scrn Negative 12/30/21 13:01 Ur Amphetamines Screen Negative 12/30/21 13:01 U Benzodiazepines Scrn Negative 12/30/21 13:01 Urine Cocaine Screen Negative 12/30/21 13:01 U Marijuana (THC) Screen Negative 12/30/21 13:01 Drugs of Abuse Note Disclamer 12/30/21 13:01 Plasma/Serum Alcohol < 0.01 % (0-0.07) 12/30/21 11:46 Hepatitis A IgM Ab Non-reactive (NonReactive) 12/30/21 12:25 Hep Bs Antigen Non-reactive (Negative) 12/30/21 12:25 Hep B Core IgM Ab Non-reactive (NonReactive) 12/30/21 12:25 Hepatitis C Antibody Non-reactive (NonReactive) 12/30/21 12:25 Ortiz/IV: Voiding Method Toilet Active Medications - Current Medications Current Medications: Generic Name Dose Route Start Last Admin Trade Name Freq PRN Reason Stop Dose Admin Acetaminophen 650 mg 12/30/21 19:51 Acetaminophen 325 Mg Tab PO Q4H PRN Pain MILD(1-3)/Fever >100.5/HUNT[place] Albuterol 2.5 mg 12/30/21 19:45 Albuterol 2.5 Mg/3 Ml Nebu IH Q4HRT PRN Shortness Of Breath Albuterol 2.5 mg 01/04/22 10:00 Albuterol 2.5 Mg/3 Ml Nebu IH Q4H JULES Amlodipine Besylate 5 mg 12/31/21 10:00 01/04/22 09:20 Amlodipine 5 Mg Tab PO 5 mg DAILY JULES Administration Arformoterol Tartrate 15 mcg 01/02/22 08:15 01/04/22 09:26 Arformoterol 15 Mcg/2 Ml Nebu IH 15 mcg Q12HRT JULES Administration Bisacodyl 10 mg 01/03/22 14:21 01/03/22 16:42 Bisacodyl 10 Mg Rect Supp [place] 10 mg BID PRN Administration Constipation Budesonide 0.5 mg 01/02/22 08:15 01/04/22 09:26 Budesonide 0.5 Mg/2 Ml Nebu IH 0.5 mg Q12HRT JULES Administration Doxazosin Mesylate 4 mg 12/30/21 23:45 01/04/22 09:20 Doxazosin 4 Mg Tab PO 4 mg BID JULES Administration Doxazosin Mesylate 4 mg 01/04/22 10:00 01/04/22 09:20 Doxazosin 4 Mg Tab PO Not Given QDAY JULES Hydromorphone HCl 0.5 mg 12/30/21 19:45 Hydromorphone 0.5 Mg/0.5 Ml Inj IV Q3H PRN Pain , Severe (7-10) Levetiracetam 750 mg 01/03/22 22:00 01/04/22 09:19 Levetiracetam 500 Mg Tab PO 750 mg BID JULES Administration Morphine Sulfate 2 mg 12/30/21 19:45 Morphine 2 Mg/1 Ml Inj IV Q4H PRN Pain, Moderate (4-6) Ondansetron HCl 4 mg 12/30/21 19:45 Ondansetron 4 Mg/2 Ml Inj IV Q8H PRN Nausea And Vomiting Oxycodone/Acetaminophen 1 tab 12/30/21 19:51 Oxycodone /Acetaminophen 5-325mg Tab PO Q6H PRN Pain, Moderate (4-6) Polyethylene Glycol 17 gm 01/02/22 10:00 01/04/22 09:20 Polyethylene Glycol 3350 17 Gm Powder PO Not Given QDAY JULES Sodium Chloride 10 ml 12/30/21 22:00 01/04/22 09:21 Sodium Chloride 0.9% 10 Ml Flush Syringe IV 10 ml BID JULES Administration Sodium Chloride 10 ml 12/30/21 19:45 Sodium Chloride 0.9% 10 Ml Flush Syringe IV PRN PRN LINE FLUSH
--- NOTE | 2022-01-04 13:46 | Discharge Summary ---
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 Procedures: MRCP, ERCP Hospital course: This is a 76-year-old male with history of asthma seizure disorder hypertension presenting to the ED for weakness and tachycardia. GI consulted for new onset jaundice. Patient reports having progressive shortness of breath and weakness for the past 3 weeks. He was evaluated by his primary care doctor and pulmonary doctor for possible bronchitis reports having a chest x-ray and was plan for CT of his chest in the next week or 2. He was referred to cardiology and had first visit this morning and noted to have tachycardia with heart rates into the 130s. He was sent to the ER because of tachycardia. In the ER his evaluation showed elevated LFTs with T bili at 10. CT of the abdomen and pelvis showed multiple liver lesions concerning for metastatic liver disease versus cholangiocarcinoma. Patient denies any abdominal pain nausea vomiting or bleeding symptoms. He does note about 14 to 15 pound weight loss for the past week. His states that patient does not eat much due to early satiety and bloating. Last colonoscopy normal about 10 years ago. No prior upper endoscopy. Does not use any anticoagulation. No prior history of abdominal surgery. On presentation in the ED, gastroenterology was consulted for management of hyperbilirubinemia. Initial attempts were made in the ED to have the patient transferred to [facility] or [facility]; however, no beds were available. Patient underwent MRCP revealing "central obstructive mass with extensive biliary ductal dilatation where there may be some underlying smaller masses which would be difficult to exclude in the liver. Primary consideration would be cholangiocarcinoma and ERCP with biopsy is recommended for further evaluation". ERCP with biopsy was attempted with gastroenterology and interventional radiology on 01/03/2022 but was unsuccessful to pass through possible stricture, bifurcation of the common hepatic duct. The decision was made to attempt transfer to an outside hospital for higher level of care again. Patient's hyperbilirubinemia has continued to worsen with his total bilirubin currently at 35, AST 261, ALT 255, alkaline phosphatase 1147, and albumin 3.1. The patient has been accepted at [facility]. The patient and his expressed understanding. The patient is medically clear for discharge. Disposition: ADMITTED INPATIENT Final Discharge Diagnosis (Prints w/discharge instructions): Possible hepatocellular carcinoma with mets, possible cholangiocarcinoma with mets, hyperbilirubinemia, constipation, obstructive jaundice, lung nodules, lactic acidosis, normocytic anemia Time spent for discharge: 45 min Core Measure Documentation - Palliative Care Palliative Care/ Comfort Measures: Not Applicable - Core Measures Any of the following diagnoses?: none Exam - Constitutional Vitals: Temp Pulse Resp BP Pulse Ox 98.7 F 102 H 18 157/87 100 01/04/22 04:58 01/04/22 09:28 01/04/22 09:28 01/04/22 04:58 01/04/22 09:30 General appearance: Present: no acute distress, well-nourished - EENT Eyes: Present: PERRL, EOM intact ENT: hearing intact, clear oral mucosa, dentition normal - Neck Neck: Present: supple, normal ROM - Respiratory Respiratory effort: normal Respiratory: bilateral: CTA - Cardiovascular Rhythm: regular Heart Sounds: Present: S1 & S2 - Extremities Extremities: no ischemia, pulses intact, pulses symmetrical, No edema, normal te mperature, normal color, Full ROM Peripheral Pulses: within normal limits - Abdominal General gastrointestinal: Present: soft, non-tender, distended (Mildly distended), normal bowel sounds Male genitourinary: Present: deferred - Rectal Rectal Exam: deferred - Integumentary Integumentary: Present: clear, warm, dry - Musculoskeletal Musculoskeletal: strength equal bilaterally - Psychiatric Psychiatric: appropriate mood/affect, intact judgment & insight, memory intact, cooperative - Neurologic Neurologic: CNII-XII intact, moves all extremities - Allied Health Allied health notes reviewed: nursing Plan Activity: advance as tolerated Diet: regular Additional Instructions: This is a 76-year-old male with history of asthma seizure disorder hypertension presenting to the ED for weakness and tachycardia. GI consulted for new onset jaundice. Patient reports having progressive shortness of breath and weakness for the past 3 weeks. He was evaluated by his primary care doctor and pulmonary doctor for possible bronchitis reports having a chest x-ray and was plan for CT of his chest in the next week or 2. He was referred to cardiology and had first visit this morning and noted to have tachycardia with heart rates into the 130s. He was sent to the ER because of tachycardia. In the ER his evaluation showed elevated LFTs with T bili at 10. CT of the abdomen and pelvis showed multiple liver lesions concerning for metastatic liver disease versus cholangiocarcinoma. Patient denies any abdominal pain nausea vomiting or bleeding symptoms. He does note about 14 to 15 pound weight loss for the past week. His states that patient does not eat much due to early satiety and bloating. Last colonoscopy normal about 10 years ago. No prior upper endoscopy. Does not use any anticoagulation. No prior history of abdominal surgery. On presentation in the ED, gastroenterology was consulted for management of hyperbilirubinemia. Initial attempts were made in the ED to have the patient transferred to [facility] or [facility]; however, no beds were available. Patient underwent MRCP revealing "central obstructive mass with extensive biliary ductal dilatation where there may be some underlying smaller masses which would be difficult to exclude in the liver. Primary consideration would be cholangiocarcinoma and ERCP with biopsy is recommended for further evaluation". ERCP with biopsy was attempted with gastroenterology and interventional radiology on 01/03/2022 but was unsuccessful to pass through possible stricture, bifurcation of the common hepatic duct. The decision was made to attempt transfer to an outside hospital for higher level of care again. Patient's hyperbilirubinemia has continued to worsen with his total bilirubin currently at 35, AST 261, ALT 255, alkaline phosphatase 1147, and albumin 3.1. The patient has been accepted at [facility]. The patient and his expressed understanding. The patient is medically clear for discharge. Care Plan Goals: Patient is medically clear for discharge to [facility]. Assessment: This is a 76-year-old male with history of asthma seizure disorder hypertension presenting to the ED for weakness and tachycardia. GI consulted for new onset jaundice. Patient reports having progressive shortness of breath and weakness for the past 3 weeks. He was evaluated by his primary care doctor and pulmonary doctor for possible bronchitis reports having a chest x-ray and was plan for CT of his chest in the next week or 2. He was referred to cardiology and had first visit this morning and noted to have tachycardia with heart rates into the 130s. He was sent to the ER because of tachycardia. In the ER his evaluation showed elevated LFTs with T bili at 10. CT of the abdomen and pelvis showed multiple liver lesions concerning for metastatic liver disease versus cholangiocarcinoma. Patient denies any abdominal pain nausea vomiting or bleeding symptoms. He does note about 14 to 15 pound weight loss for the past week. His states that patient does not eat much due to early satiety and bloating. Last colonoscopy normal about 10 years ago. No prior upper endoscopy. Does not use any anticoagulation. No prior history of abdominal surgery. On presentation in the ED, gastroenterology was consulted for management of h yperbilirubinemia. Initial attempts were made in the ED to have the patient transferred to [facility] or [facility]; however, no beds were available. Patient underwent MRCP revealing "central obstructive mass with extensive biliary ductal dilatation where there may be some underlying smaller masses which would be difficult to exclude in the liver. Primary consideration would be cholangiocarcinoma and ERCP with biopsy is recommended for further evaluation". ERCP with biopsy was attempted with gastroenterology and interventional radiology on 01/03/2022 but was unsuccessful to pass through po ssible stricture, bifurcation of the common hepatic duct. The decision was made to attempt transfer to an outside hospital for higher level of care again. Patient's hyperbilirubinemia has continued to worsen with his total bilirubin currently at 35, AST 261, ALT 255, alkaline phosphatase 1147, and albumin 3.1. The patient has been accepted at [facility]. The patient and his expressed understanding. The patient is medically clear for discharge. Follow up with: ISABELL GEE MD [Primary Care Provider] - 3-5 Days
[2022-01-04] MEDS: ALBUTEROL 2.5 MG/3 ML NEBU IH SCH ×2 (13:55→14:26)
[2022-01-04 15:42] VITALS: BP 149/82
== END 2022-01-04 20:40 | disposition short-term general hospital (02) | DRG 435 ==
LOC: ED 10:46 → 4A 19:51
PROVIDERS: ADMIT Internal Medicine; ATTEND Student in an Organized Health Care Education/Training Program
PROC: 0FJB8ZZ Inspection of Hepatobiliary Duct, Via Natural or Artificial Opening Endoscopic (ICD-10-PCS; principal; 2022-01-03)
PROC: BF101ZZ Fluoroscopy of Bile Ducts using Low Osmolar Contrast (ICD-10-PCS; 2022-01-03)
DX: C22.0 Liver cell carcinoma (principal); K83.1 Obstruction of bile duct; E87.2 Acidosis; C78.89 Secondary malignant neoplasm of other digestive organs; R91.8 Other nonspecific abnormal finding of lung field; Z20.822 Contact with and (suspected) exposure to COVID-19; I10 Essential (primary) hypertension; R91.1 Solitary pulmonary nodule; F41.9 Anxiety disorder, unspecified; D64.9 Anemia, unspecified; K59.00 Constipation, unspecified; E80.6 Other disorders of bilirubin metabolism; R62.7 Adult failure to thrive; G40.909 Epilepsy, unspecified, not intractable, without status epilepticus; J45.20 Mild intermittent asthma, uncomplicated; Z79.899 Other long term (current) drug therapy; Z82.49 Family history of ischemic heart disease and other diseases of the circulatory system; Z68.22 Body mass index [BMI] 22.0-22.9, adult
CPT/HCPCS: 36415; 74018; 74177; 74183; 74330; 76705; 80053; 80074; 80307; 80320; 81001; 82140; 82962; 83690; 83880; 84443; 84484; 85025; 85610; 85730; 87086; 93005; 94640; G0378; A9575; C1726; G0480; J2543; J2704; J7030; Q9967; U0003